=== PATIENT | male | born 1950 | race Caucasian/White ===

== ENCOUNTER 2016-07-11 11:35 | Inpatient (IN) | payer MEDICARE, OTHER ==
[~2016-07-11] VITALS: Ht 167.6 cm; Wt 295.0 kg
[~2016-07-11 11:35] MED LIST: ALBU18HF INH; ALBU2.5V3 NEB; AMIO200T2 GTB; ASPI81TA3 PO; BISA-57 PO; CARSR60 PO; FER325 GTB; FURO40TA4 GTB; GABA300C16 GTB; HYDR-3670 PO; NIT4 SL; NYST15PO4 TOP; OLAN5TAB5 GTB; POTA20TA15 GTB; SERT100T GTB; TRAM-40 PO
--- NOTE | 2016-07-11 11:41 | ERA ---
ER Documentation Chief Complaint Date/Time DATE: 07/11/16 TIME: 11:41 Chief Complaint Shortness of breath HPI The patient is a 66-year-old male, presenting to the ER because of low O2 saturation and shortness of breath. He is unable to provide any history, the history is obtained from enterprise resource analyst and medical record. He is normally more alert according to the enterprise resource analyst Past medical history: Chronic respiratory failure, COPD, hypertension, obesity, paroxysmal atrial fibrillation, anxiety, depression, anemia, CAD Past surgical history: Tracheostomy, pacemaker ROS All systems reviewed and are negative except as per history of present illness. Medications Home Meds Active Scripts Nitroglycerin* (Nitrostat*) 0.4 Mg Tab.subl, 1 TAB SL Q5M Y for ANGINA for 30 Days Prov:ANA RODRIGUEZ V. SUPPLY AND DISTRIBUTION MANAGER 04/01/16 Aspirin (Aspirin) 81 Mg Chew, 81 MG PO DAILY for 30 Days, TAB Prov:ANA RODRIGUEZ V. SUPPLY AND DISTRIBUTION MANAGER 04/01/16 Bisacodyl* (Dulcolax*) 5 Mg Tabec, 5 MG PO DAILY Y for CONSTIPATION for 30 Days Prov:ROSLYN NARAYAN 06/21/15 Albuterol Sulfate* (Ventolin HFA*) 1 Puff Inha, 2 PUFF INH Q4H RESP THERAPY Y for SHORTNESS OF BREATH for 30 Days Prov:ROSLYN NARAYAN 06/21/15 Reported Medications Enoxaparin Sodium* (Lovenox*) 40 Mg/0.4 Ml Syringe, 40 MG SC DAILY, SYR 07/11/16 Sucralfate* (Carafate*) 1 Gm Tab, 1 GM PO Q6, TAB 07/11/16 Nystatin (Nystatin Powder) 1 Each Powder.ea., 1 APPLIC TOPICAL DAILY, #1 BOTTLE 07/11/16 Pantoprazole* (Pantoprazole*) 40 Mg Tablet.dr, 40 MG GTB DAILY, TAB 07/11/16 Simethicone* (Anti-Gas/80*) 80 Mg Tab.chew, 80 MG PO Q6H Y for DISTENSION/GAS/ BLOATING, TAB.CHEW 07/11/16 Lactulose* (Lactulose*) 20 Gm/30 Ml Solution, 20 GM PO BID Y for CONSTIPATION, ML 07/11/16 Gabapentin* (Gabapentin*) 300 Mg Capsule, 300 MG GTB TID, #90 CAP 07/11/16 Dextromethorphan Hb-Promethazine Hcl* (Promethazine DM* Syrup) 473 Ml Syrup, 5 ML GTB Q6 Y for COUGH, ML 07/11/16 Naproxen* (Naprosyn*) 500 Mg Tablet, 500 MG GTB BID, TAB 07/11/16 Hydralazine Hcl* (Hydralazine Hcl*) 10 Mg Tablet, 10 MG PO Q4 Y for ELEVATED BLOOD PRESSURE, #60 TAB 03/31/16 Tramadol Hcl* (Ultram*) 50 Mg Tablet, 50 MG PO Q4H WHILE AWAKE Y for PAIN, TAB 03/31/16 Potassium Chloride* (K-Dur*) 20 Meq Tab.prt.sr, 40 MEQ GTB DAILY, TAB.SA 03/31/16 Furosemide* (Furosemide*) 40 Mg Tablet, 40 MG GTB DAILY, TAB 03/31/16 Sertraline Hcl* (Zoloft*) 100 Mg Tablet, 100 MG GTB DAILY, #30 TAB 07/01/15 Olanzapine* (Zyprexa*) 5 Mg Tablet, 5 MG GTB DAILY, #30 TAB 07/01/15 Diltiazem Hcl* (Cardizem SR*) 60 Mg Capsr, 60 MG PO Q12, #60 CAP 07/01/15 Amiodarone Hcl* (Amiodarone Hcl*) 200 Mg Tablet, 200 MG GTB BID, #60 TAB 07/01/15 Albuterol Sulfate* (Albuterol Sulfate* Neb) 0.083%-3 Ml Neb, 2.5 MG NEB BID, # 30 VIAL 06/11/15 Discontinued Reported Medications Ferrous Sulfate* (Ferrous Sulfate*) 325 Mg Tabec, 325 MG GTB TID, TAB 03/31/16 Gabapentin* (Gabapentin*) 300 Mg Capsule, 300 MG GTB TID, #90 CAP 03/31/16 Discontinued Scripts Nystatin* (Nystop*) 15 Gm Powder, 2 APPLIC TOP BID for 30 Days Prov:ANA RODRIGUEZ V. SUPPLY AND DISTRIBUTION MANAGER 04/01/16 Allergies Allergies: Coded Allergies: hydromorphone (Verified Allergy, Unknown, 03/31/16) morphine (Verified Allergy, Unknown, 03/31/16) PMhx/Soc History of Surgery: Yes (tracheostomy) Anesthesia Reaction: No Hx Neurological Disorder: Yes (neuropathy) Hx Respiratory Disorders: Yes (, COPD, Pneumonia) Hx Cardiac Disorders: Yes (HTN, CHF, paroxysmal atrial fib, pacemaker) Hx Psychiatric Problems: Yes (anxiety, depression) Hx Miscellaneous Medical Probl: Yes (insomis) Hx Alcohol Use: No Hx Substance Use: No Hx Tobacco Use: No Physical Exam Vitals Vital Signs Date Time Temp Pulse Resp B/P Pulse Ox O2 Delivery O2 Flow Rate FiO2 07/11/16 15:30 98.0 60 23 143/62 100 Mechanical Ventilator 07/11/16 15:00 60 131/68 99 Mechanical Ventilator 07/11/16 14:59 60 26 100 80 07/11/16 13:17 74 26 100 100 07/11/16 13:00 73 150/67 99 Mechanical Ventilator 07/11/16 11:48 83 23 98 100 07/11/16 11:42 97.8 82 22 166/65 92 Physical Exam Const: Moderate acute distress. Morbidly obese Head: Atraumatic. Eyes: Normal Conjunctiva. ENT: Normal External Ears, Nose and Mouth. Neck: Full range of motion. No meningismus. Resp: Clear to auscultation anterior and lateral Cardio: Regular rate and rhythm, no murmurs. Abd: Soft, non distended, normal bowel sounds, non tender. Skin: No petechiae or rashes. Back: No midline or flank tenderness. Ext: No cyanosis, or edema. Neur: Unable to perform due to his condition Psych: Unable to perform due to his condition. Result Diagram: 07/11/16 1145 07/11/16 1145 Results 24 hrs Laboratory Tests Test 07/11/16 11:42 07/11/16 11:45 07/11/16 12:00 07/11/16 12:06 Blood Gas Specimen Source Blood arterial Arterial Blood Date Drawn 07/11/2016 12:50:06 PM Arterial Blood pH (Temp corrected) 7.196 Arterial Blood pCO2 (Temp correct) 82.4mmhg Arterial Blood pO2 (Temp corrected) 103.7mmHG Arterial Blood HCO3 31.2mmol/L Arterial Blood Base Excess 1.8mmol/L Arterial Blood Oxygen Saturation 95.9mmHG Rk Test ACCEPTAB Arterial Blood Gas Puncture Site Left Radial Arterial Blood Carboxyhemoglobin 0.7% Arterial Blood Methemoglobin 0.1% Blood Gas A-a O2 Differential 526.9mmHg Oxyhemoglobin Percent 95.1% Total Hemoglobin 9.4g/dl Blood Gas Temperature 37.0C Blood Gas Respiration Rate 20.0 Blood Gas Actual Respiration Rate 20 Blood Gas Modality VENT - AC FiO2 100.0% Blood Gas Tidal Volume 600.0mL Blood Gas Low PEEP Setting 0cmH2O Blood Gas Critical Value Read Back DR THOMPSON Blood Gas Notified Whom JLD Blood Gas Notified Time 07/11/2016 1:00:51 PM White Blood Count 13.410^3/ul Red Blood Count 3.2610^6/ul Hemoglobin 8.7g/dl Hematocrit 31.0% Mean Corpuscular Volume 95.1fl Mean Corpuscular Hemoglobin 26.7pg Mean Corpuscular Hemoglobin Concent 28.1g/dl Red Cell Distribution Width 18.6% Platelet Count 79266^3/UL Mean Platelet Volume 12.5fl Neutrophils % 79.1% Lymphocytes % 10.3% Monocytes % 4.0% Eosinophils % 4.4% Basophils % 0.3% Nucleated Red Blood Cells % 0.4/100WBC Neutrophils # 10.610^3/ul Lymphocytes # 1.410^3/ul Monocytes # 0.510^3/ul Eosinophils # 0.610^3/ul Basophils # 0.010^3/ul Nucleated Red Blood Cells # 0.110^3/ul Prothrombin Time 13.7Sec Prothrombin Time Ratio 1.1 INR International Normalized Ratio 1.05 Activated Partial Thromboplast Time 35.8Sec Sodium Level 141mmol/L Potassium Level 4.8mmol/L Chloride Level 101mmol/L Carbon Dioxide Level 31mmol/L Anion Gap 14 Blood Urea Nitrogen 22mg/dl Creatinine 1.10mg/dl Glucose Level 199mg/dl Calcium Level 8.3mg/dl Magnesium Level 2.1mg/dl Total Bilirubin 0.3mg/dl Direct Bilirubin 0.00mg/dl Indirect Bilirubin 0.3mg/dl Aspartate Amino Transf (AST/SGOT) 40IU/L Alanine Aminotransferase (ALT/SGPT) 19IU/L Alkaline Phosphatase 107IU/L Troponin I < 0.012ng/ml B-Type Natriuretic Peptide 236PG/ML Total Protein 9.0g/dl Albumin 3.6g/dl Globulin 5.40g/dl Albumin/Globulin Ratio 0.66 Lipase 29U/L Lactic Acid Level 0.9mmol/L Urine Color LT. YELLOW Urine Clarity CLEAR Urine pH 5.0 Urine Specific [place] 1.015 Urine Ketones NEGATIVE Urine Nitrite POSITIVE Urine Bilirubin NEGATIVE Urine Urobilinogen 0.2 E.U./dL Urine Leukocyte Esterase 1+ Urine Microscopic RBC 0-2/HPF Urine Microscopic WBC 5-10/HPF Urine Bacteria MANY Urine Hemoglobin TRACE Urine Glucose NEGATIVE% Urine Total Protein TRACE Test 07/11/16 12:09 07/11/16 14:15 Bedside Urine pH (LAB) 5.0 Bedside Urine Protein (LAB) 1+ Bedside Urine Glucose (UA) Negative Bedside Urine Ketones (LAB) Negative Bedside Urine Blood Trace-intact Bedside Urine Nitrite (LAB) Positive Bedside Urine Leukocyte Esterase (L 1+ Lactic Acid Level 1.1mmol/L Current Medications Medications (Trade) Dose Ordered Sig/Jose Route PRN Reason Start Time Stop Time Status Last Admin Dose Admin Piperacillin Sod/ Tazobactam Sod (Zosyn 3.375gm/ 100 ml (Pmx)) 100 ml @ 200 mls/hr ONCE ONCE IVPB 07/11/16 13:00 07/11/16 13:29 DC 07/11/16 12:59 Furosemide 40 mg 40 mg ONCE ONCE IV 07/11/16 14:30 07/11/16 14:31 DC 07/11/16 14:14 Piperacillin Sod/ Tazobactam Sod (Zosyn 3.375gm/ 100 ml (Pmx)) 100 ml @ 200 mls/hr Q8 IVPB 07/11/16 22:00 Albuterol (Proventil 0.083% (Neb)) 2.5 mg BID RESP THERAPY NEB 07/11/16 20:00 Amiodarone HCl (Cordarone) 200 mg BID GTB 07/11/16 21:00 Aspirin (Aspirin) 81 mg DAILY PO 07/12/16 09:00 Bisacodyl (Dulcolax) 5 mg DAILY PRN PO CONSTIPATION 07/11/16 15:30 Diltiazem HCl (Cardizem Sr) 60 mg Q12 PO 07/11/16 21:00 Enoxaparin Sodium (Lovenox) 40 mg DAILY SC 07/12/16 09:00 Furosemide (Lasix) 40 mg BID DIURETICS GTB 07/11/16 18:00 Gabapentin (Neurontin) 300 mg TID GTB 07/11/16 21:00 Hydralazine HCl (Apresoline) 10 mg Q4 PRN PO ELEVATED BLOOD PRESSURE 07/11/16 15:30 UNV Lactulose (Enulose) 20 gm BID PRN PO CONSTIPATION 07/11/16 15:30 Nitroglycerin (Nitroglycerin (Sl Tab) 0.4 Mg) 1 tab Q5M PRN SL ANGINA 07/11/16 15:30 07/11/16 15:30 DC Nystatin 1 applic DAILY TOP 07/12/16 09:00 Olanzapine (Zyprexa) 5 mg DAILY GTB 07/12/16 09:00 Pantoprazole (Protonix Tab) 40 mg DAILY PO 07/12/16 09:00 Potassium Chloride (Klor-Con 20) 40 meq DAILY PO 07/12/16 09:00 Sertraline HCl (Zoloft) 100 mg DAILY GTB 07/12/16 09:00 Simethicone (Mylicon) 80 mg Q6H PRN PO DISTENSION/GAS/BLOATING 07/11/16 15:30 Sucralfate (Carafate) 1 gm Q6 PO 07/11/16 18:00 Tramadol HCl (Ultram) 50 mg Q4H WHILE AWAKE PRN PO PAIN 07/11/16 15:30 IV Flush (NS 3 ml) 3 ml PER PROTOCOL IV 07/11/16 15:30 Lorazepam (Ativan) 0.5 mg Q6H PRN IV ANXIETY 07/11/16 15:30 Ondansetron HCl (Zofran Inj) 4 mg Q6H PRN IV NAUSEA AND/OR VOMITING 07/11/16 15:30 Nitroglycerin (Nitroglycerin (Sl Tab) 0.4 Mg) 1 tab Q5M PRN SL CHEST PAIN 07/11/16 15:30 Acetaminophen (Tylenol Tab) 650 mg Q6H PRN PO PAIN LEVEL 1-3 OR FEVER 07/11/16 15:30 Acetaminophen (Tylenol Supp) 650 mg Q6H PRN [place] PAIN LEVEL 1-3 OR FEVER 07/11/16 15:30 Miscellaneous Information (*Order Clarification Bulletin) HYDRALAZINE ORDER NEEDS ... Q8H XX 07/11/16 16:00 Procedures/MDM EKG: Read by emergency physician Rate/Rhythm: Normal Sinus Rhythm 80 beats/min QRS, ST, T-waves: No ST elevation, no T inversion, first-degree AV block, left bundle branch block Impression: Abnormal EKG [place] [id number] Radiology Main Line: [phone] DIAGNOSTIC IMAGING REPORT Patient: CARLOS CAMPUZANO : 1950 Age: 66 Sex: M MR #: [id number] DOS: 07/11/16 1142 Ordering MD: MELANIE THOMPSON MD Location: E/R Room/Bed: PROCEDURE: XR Chest. CLINICAL INDICATION: Sepsis TECHNIQUE: Chest AP portable. COMPARISON: 03/31/2016 FINDINGS: Tracheostomy tube in place. Right-sided dual lead pacemaker. The mediastinal structures are unremarkable. There is calcification of the thoracic aorta (consistent with atherosclerosis). There is moderate cardiac enlargement. There is congestive heart failure with bilateral pulmonary edema. There is a left pleural effusion. There are senescent changes of the axial skeleton. IMPRESSION: Moderate cardiac enlargement. Congestive heart failure with pulmonary edema. Left pleural effusion. RPTAT: HGDB .Casey Robertson MD, MD Date Time Electronically viewed and signed by .Casey Robertson MD, MD on 07/11/2016 12:59 .B/ CC: MELANIE THOMPSON MD MEDICAL MAKING DECISION: The patient is a 66-year-old male, presenting with acute pulmonary edema, acute on chronic respiratory failure, acute cystitis. He was treated with Lasix 40 mg IV, Zosyn IV. The differential diagnoses considered include but are not limited to asthma, COPD, pneumonia, pulmonary embolus, pleural effusion, congestive heart failure. Critical Care: Time: 35 minutes excluding all billable procedures. Treatments/Evaluations: Close monitoring and treatment of unstable vital signs, cardiorespiratory, and neurologic status, while maintaining tight balance of fluid, respiratory, and cardiac interventions. Departure Diagnosis: Primary Impression: Acute and chronic respiratory failure Additional Impressions: Acute pulmonary edema UTI (urinary tract infection) Anemia Condition: Serious Comments I discussed the findings with the patient. I discussed the patient with the on- call hospitalist Dr. Novak who was made aware of the lab, the treatment, the patient condition. The patient is admitted to telemetry MELANIE THOMPSON MD Jul 11, 2016 11:41
[2016-07-11] MEDS ORDERED: NAPR-260 GTB (11:56)
[2016-07-11] MEDS ORDERED: D-ME473S2 GTB (11:57)
[2016-07-11] MEDS ORDERED: GABA300C16 GTB (11:57)
[2016-07-11] MEDS ORDERED: LACT20SO2 PO (11:57)
[2016-07-11] MEDS ORDERED: SIME80TA PO (11:58)
[2016-07-11] MEDS ORDERED: PANT40TA4 GTB (11:59)
[2016-07-11] MEDS ORDERED: NYST1POW22 TOPICAL (12:00)
[2016-07-11] MEDS ORDERED: SUCR1TAB56 PO (12:00)
[2016-07-11] MEDS ORDERED: ENOX40DI14 SC (12:01)
[2016-07-11 12:06] LABS: ADD SCAN DIFF NO
[2016-07-11 12:10] LABS: ABNORMAL IP MESSAGE 1; BASOPHILS % 0.3 % (0.0-2.0); EOSINOPHILS # 0.6 10^3/ul (0.0-0.5); EOSINOPHILS % 4.4 % (0.0-7.0); HEMOGLOBIN 8.7 g/dl (14.0-18.0); LYMPHOCYTES # 1.4 10^3/ul (0.8-2.9); LYMPHOCYTES % 10.3 % (15.0-51.0); MEAN CORPUSCULAR HEMOGLOBIN 26.7 pg (29.0-33.0); MEAN CORPUSCULAR HGB CONC 28.1 g/dl (32.0-37.0); MEAN CORPUSCULAR VOLUME 95.1 fl (82.0-101.0); MEAN PLATELET VOLUME 12.5 fl (7.4-10.4); MONOCYTE # 0.5 10^3/ul (0.3-0.9); NEUTROPHIL # 10.6 10^3/ul (1.6-7.5); NEUTROPHILS % 79.1 % (39.0-77.0); NUCLEATED RED BLOOD CELLS # 0.1 10^3/ul (0.0-0.0); NUCLEATED RED BLOOD CELLS% 0.4 /100WBC (0.0-0.0); PLATELET COUNT 245 10^3/UL (140-415); RED BLOOD COUNT 3.26 10^6/ul (4.70-6.10); RED CELL DISTRIBUTION WIDTH 18.6 % (11.5-14.5); WHITE BLOOD COUNT 13.4 10^3/ul (4.8-10.8)
[2016-07-11 12:10] LABS: URINE BLOOD (Dip) POC Trace-intact (NEGATIVE)
[2016-07-11 12:24] LABS: INR 1.05; PARTIAL THROMBOPLASTIN TIME 35.8 Sec (25.0-35.0); PROTIME 13.7 Sec (12.2-14.2); PT RATIO 1.1
[2016-07-11 12:25] LABS: ALBUMIN 3.6 g/dl (3.3-4.9); CHLORIDE 101 mmol/L (97-110)
[2016-07-11 12:26] LABS: POTASSIUM 4.8 mmol/L (3.5-5.1); SODIUM 141 mmol/L (135-144)
[2016-07-11 12:28] LABS: ALANINE AMINOTRANSFERASE 19 IU/L (13-69); ALBUMIN/GLOBULIN RATIO 0.66; ALKALINE PHOSPHATASE 107 IU/L (42-121); ANION GAP 14 (8-16); ASPARTATE AMINO TRANSFERASE 40 IU/L (15-46); BILIRUBIN,INDIRECT 0.3 mg/dl (0-1.1); BILIRUBIN,TOTAL 0.3 mg/dl (0.2-1.3); BLOOD UREA NITROGEN 22 mg/dl (7-20); CARBON DIOXIDE 31 mmol/L (21-31)
[2016-07-11 12:29] LABS: CALCIUM 8.3 mg/dl (8.4-10.2); GLUCOSE 199 mg/dl (70-220)
[2016-07-11 12:38] LABS: ADD UMIC YES; URINE BILIRUBIN (Dip) NEGATIVE (NEGATIVE); URINE BLOOD (Dip) TRACE (NEGATIVE); URINE COLOR LT. YELLOW (YELLOW); URINE GLUCOSE (Dip) NEGATIVE (NEGATIVE); URINE KETONES (Dip) NEGATIVE (NEGATIVE); URINE LEUKOCYTE ESTERASE (Dip) 1+ (NEGATIVE); URINE NITRITE (Dip) POSITIVE (NEGATIVE); URINE TOTAL PROTEIN (Dip) TRACE (NEGATIVE); URINE UROBILINOGEN (Dip) 0.2 E.U./dL (0.1-1.0)
[2016-07-11 12:40] LABS: TROPONIN-I < 0.012 ng/ml (0.00-0.12)
[2016-07-11 12:51] LABS: BACTERIA,URINE MANY; URINE RBCS 0-2 /HPF (0)
--- NOTE | 2016-07-11 12:59 | RADRPT ---
PROCEDURE: XR Chest. CLINICAL INDICATION: Sepsis TECHNIQUE: Chest AP portable. COMPARISON: 03/31/2016 FINDINGS: Tracheostomy tube in place. Right-sided dual lead pacemaker. The mediastinal structures are unremarkable. There is calcification of the thoracic aorta (consiste nt with atherosclerosis). There is moderate cardiac enlargement. There is congestive heart failure with bilateral pulmonary edema. There is a left pleural effusion. There are senescent changes of the axial skeleton. IMPRESSION: Moderate cardiac enlargement. Congestive heart failure with pulmonary edema. Left pleural effusion. RPTAT: HGDB .Casey Robertson MD, MD Date Time Electronically viewed and signed by .Casey Robertson MD, on 07/11/2016 12:59 .B/
[2016-07-11] MEDS ORDERED: PIPER-TAZO 3.375 GM IV (PMX) 100 ML IVPB ONE (13:00)
[2016-07-11 13:01] LABS: AADO2 Arterial 526.9 mmHg (7.0-24.0); Allen Test ACCEPTAB; Arterial Base Excess 1.8 mmol/L (-3.0-3); Arterial COHb 0.7 % (0.0-3.0); Arterial Fraction of Oxyhgb 95.1 % (93.0-99.0); Arterial HCO3 31.2 mmol/L (22.0-26.0); Arterial MetHb 0.1 % (0.0-1.5); Arterial Total Hemglobin 9.4 g/dl (12.0-18.0); Blood Gas Low PEEP Setting 0 cmH2O; MODE VENT - AC
[2016-07-11] MEDS ORDERED: FUROSEMIDE 40 MG INJ IV ONE (14:30)
[2016-07-11] MEDS ORDERED: ONDANSETRON 4 MG INJ IV PRN (15:30)
[2016-07-11] MEDS ORDERED: NITROGLYCERIN (SL) 0.4 MG TAB SL PRN ×2 (15:30)
[2016-07-11] MEDS ORDERED: ACETAMINOPHEN 325 MG TAB PO PRN (15:30)
[2016-07-11] MEDS ORDERED: LACTULOSE 30ML CUP PO PRN (15:30)
[2016-07-11] MEDS ORDERED: LORAZEPAM 2 MG INJ IV PRN (15:30)
[2016-07-11] MEDS ORDERED: NACL 0.9% 3 ML SYG IV SCH (15:30)
[2016-07-11] MEDS ORDERED: BISACODYL (EC) 5 MG TAB PO PRN (15:30)
[2016-07-11] MEDS ORDERED: ACETAMINOPHEN 650 MG SUPP PR PRN (15:30)
[2016-07-11] MEDS ORDERED: [UNRECOGNIZED DRUG - REMARK] XX SCH (16:00)
[2016-07-11 17:23] LABS: CREATINE KINASE 54 IU/L (23-200)
[2016-07-11 17:48] LABS: CK-MB 0.95 ng/ml (0.0-2.4); TROPONIN-I < 0.012 ng/ml (0.00-0.12)
[2016-07-11] MEDS: SUCRALFATE 1 GM TAB PO SCH ×2 (18:00→19:17)
[2016-07-11] MEDS: FUROSEMIDE 40 MG TAB GTB SCH ×2 (18:00→19:17)
--- NOTE | 2016-07-11 18:48 | RADRPT ---
PROCEDURE: Ultrasound guidance for placement of needle in left upper extremity vein. CLINICAL INDICATION: Venous access. TECHNIQUE: Limited sonography of the left upper extremity was performed. Ultrasound images were recorded and s tored in the patient's medical record. COMPARISON: None. FINDINGS: The ultrasound images demonstrate a patent left upper extremity vein. The PICC line was inserted by the PICC line nurse. IMPRESSION: 1. Ultrasound guidance for a needle placement in a left upper extremity vein. 2. The left upper extremity vein is patent. RPTAT: QQ .Lonny Smallwood MD, MD Date Time Electronically viewed and signed by .Lonny Smallwood MD, MD on 07/11/2016 18:48 .R/
--- NOTE | 2016-07-11 18:53 | RADRPT ---
PROCEDURE: XR Chest. CLINICAL INDICATION: Check PICC line position. TECHNIQUE: Single frontal view. COMPARISON: Prior study done earlier the same day. FINDINGS: This is a limited study with the right-sided chest not completely included on the image. There is a left arm PICC line with the tip in the mid superior vena cava. There is a right-sided dual lead pe rmanent pacemaker. The tracheostomy tube is in satisfactory position. The heart is enlarged. Bilate ral air space disease consistent with pulmonary edema with right side worse than left is unchanged. The heart is enlarged. IMPRESSION: 1. Satisfactory position of left arm PICC line. 2. Limited study. 3. Asymmetric pulmonary edema or pneumonia. RPTAT: QQ .Lonny Smallwood MD, MD Date Time Electronically viewed and signed by .Lonny Smallwood MD, on 07/11/2016 18:52 .R/
--- NOTE | 2016-07-11 18:53 | RADRPT ---
PROCEDURE: XR Chest. CLINICAL INDICATION: Check PICC line position. TECHNIQUE: Single frontal view. COMPARISON: Prior study done earlier the same day. FINDINGS: This is a limited study with the right-sided chest not completely included on the image. There is a left arm PICC line with the tip in the mid superior vena cava. There is a right-sided dual lead pe rmanent pacemaker. The tracheostomy tube is in satisfactory position. The heart is enlarged. Bilate ral air space disease consistent with pulmonary edema with right side worse than left is unchanged. The heart is enlarged. IMPRESSION: 1. Satisfactory position of left arm PICC line. 2. Limited study. 3. Asymmetric pulmonary edema or pneumonia. RPTAT: QQ .Lonny Smallwood MD, MD Date Time Electronically viewed and signed by .Lonny Smallwood MD, on 07/11/2016 18:53 .R/
--- NOTE | 2016-07-11 20:20 | CONS ---
DATE OF ADMISSION: 07/11/2016 DATE OF CONSULTATION: 07/11/2016 TYPE OF CONSULTATION: Pulmonary. REASON FOR CONSULTATION: Mechanical ventilation. HISTORY OF PRESENT ILLNESS: This is an unfortunate 66-year-old gentleman with multiple medical prob lems including vent-dependent respiratory failure, morbid obesity, history of COPD, atrial fibrillat ion, coronary artery disease, transferred from [facility] for hypoxemia, requiring FIO 2 of 80%. The patient is currently nonverbal, unable to give me further details. PAST MEDICAL HISTORY: As above. MEDICATIONS: Per chart. ALLERGIES: 1. MORPHINE. 2. HYDROMORPHONE. SYSTEMS REVIEW: A 12-point review of systems currently unable to perform. PHYSICAL EXAMINATION: GENERAL: Morbidly appearing gentleman on mechanical ventilation via tracheostomy. VITAL SIGNS: Temperature 98, pulse 60, blood pressure 143/62, O2 saturation 96% on FIO2 of 80%. NECK: Supple. No JVD, lymphadenopathy. Trach site clean, intact. CARDIAC: S1, S2. Distant heart sounds. CHEST: Diminished air entry bilaterally. ABDOMEN: Obese morbidly. Soft, nontender. No guarding or rebound. EXTREMITIES: No cyanosis, clubbing. 1+ edema. NEUROLOGIC: Unable to assess. LABORATORY DATA: ABG initially: pH 7.19, pCO2 of 82, PaO2 of 103, bicarbonate was 31 on 100% FIO2. White count 13.4, hemoglobin 8.7, platelets 245. BUN 22, creatinine 1.1. BNP 236. INR 1.05. Ur inalysis was suggestive of UTI. IMPRESSION AND PLAN: 1. Ventilator-dependent respiratory failure. 2. Likely urinary tract infection. 3. Morbid obesity. 4. Acute on chronic hypercapnic respiratory failure and hypoxic respiratory failure. 5. Radiographic evidence of left pleural effusion. The patient will require: 1. Continued mechanical ventilation. 2. Increased tidal volume and respiratory rate for hypercapnia. 3. Continued antibiotics for urinary tract infection. 4. Continued feeding as tolerated. 5. DVT and GI prophylaxis. Dictated By: DOROTHY PABLO/GABINO Conf#: [id number] DID#: [id number]
[2016-07-11 20:23] LABS: AADO2 Arterial 411.7 mmHg (7.0-24.0); Allen Test ACCEPTAB; Arterial Base Excess 5.5 mmol/L (-3.0-3); Arterial COHb 0.9 % (0.0-3.0); Arterial Fraction of Oxyhgb 95.6 % (93.0-99.0); Arterial HCO3 32.1 mmol/L (22.0-26.0); Arterial MetHb 0 % (0.0-1.5); Arterial Total Hemglobin 8.7 g/dl (12.0-18.0); MODE VENT - AC
[2016-07-11] MEDS: DILTIAZEM (SR) 60 MG CAP PO SCH (21:00)
[2016-07-11] MEDS: GABAPENTIN 300 MG CAP GTB SCH (21:00)
[2016-07-11] MEDS: AMIODARONE 200 MG TAB GTB SCH (21:00)
[2016-07-11] MEDS: ALBUTEROL 0.083% (NEB) 2.5 MG/3 ML AMP NEB SCH (21:29)
[2016-07-11 22:35] LABS: CREATINE KINASE 48 IU/L (23-200)
[2016-07-11 22:49] LABS: CK-MB 1.23 ng/ml (0.0-2.4); TROPONIN-I < 0.012 ng/ml (0.00-0.12)
[2016-07-12] MEDS: PIPER-TAZO 3.375 GM IV (PMX) 100 ML IVPB SCH ×4 (00:14→21:53)
[2016-07-12] MEDS: traMADol 50 MG TAB PO PRN (00:20)
--- NOTE | 2016-07-12 02:04 | RADRPT ---
PROCEDURE: Chest. CLINICAL INDICATION: Respiratory failure. TECHNIQUE: Single frontal view of the chest was obtained. COMPARISON: 07/11/2016. FINDINGS: The patient is status post tracheostomy. There is a left-sided PICC line extending to the SVC. The cardiac silhouette is enlarged. The aortic arch is calcified. There are hazy opacities bilaterall y. There is no pneumothorax. IMPRESSION: Bilateral hazy opacities could represent pulmonary edema and/or multifocal pneumonia, unchanged. Cardiomegaly and aortic atherosclerosis. Left-sided PICC line in place. .Miko Kwong MD, Date Time Electronically viewed and signed by .Miko Kwong MD, MD on 07/12/2016 02:04 .T/
--- NOTE | 2016-07-12 02:47 | HP ---
DATE OF ADMISSION: 07/11/2016 DENTIST/OWNER: 1. Order Administrator. 2. Stone Sandblaster. CHIEF COMPLAINT: Shortness of breath. HISTORY OF PRESENT ILLNESS: This is a 66-year-old gentleman with past medical history of respirator y distress status post tracheostomy, COPD, arrhythmia, coronary artery disease, congestive heart benja lure, neuropathy, mood disorder, GERD, depression, GI bleed, morbid obesity with BMI of 108 who resi brad at [facility] and is dependent on others for his daily activities secondary to his body habitus and is bed bound, presented to ER secondary to having low oxygen saturation, shortness of breath. He is unable to provide any history secondary to his trach. The great amount of inform ation was obtained from and medical records. According to the note, the patient is normally m ore alert and awake. He is able to respond to questions by moving his head, although he denies havi ng any discomfort except having shortness of breath. PAST MEDICAL AND SURGICAL HISTORY: As above per HPI. MEDICATIONS: 1. Albuterol sulfate. 2. Amiodarone. 3. Aspirin. 4. Dulcolax. 5. Cardizem. 6. Lovenox. 7. Lasix. 8. Gabapentin. 9. Hydralazine. 10. Lactulose. 11. Naproxen. 12. Nitro Stat. 13. Nystatin. 14. Zyprexa. 15. Protonix. 16. K-Dur. 17. Promethazine. 18. Zoloft. 19. Simethicone. 20. Sucralfate. 21. Ultram. ALLERGIES: 1. DILAUDID. 2. MORPHINE. SOCIAL HISTORY: He resides at a [facility]. He is dependent on others for his daily activity. He is not a smoker. REVIEW OF SYSTEMS: As above per HPI, otherwise is unobtainable. PHYSICAL EXAMINATION: VITAL SIGNS: Temperature 98.0, pulse 59, respirations 35, oxygen saturation 100% and FIO2 of 80% on vent, blood pressure 111/55. GENERAL APPEARANCE: Patient is lying in bed. He is easily arousable and awake and then he falls ri ght back to sleep. Body habitus morbidly obese with BMI of 108. EYES AND ENT: Conjunctivae and lids are normal. Pupils are normal. Extraocular normal. Hearing g rossly normal. Oral mucosa is dry. NECK: Supple. There is a trach in place. Surgical site is dry and clean. CARDIOVASCULAR: Normal S1, S2. No murmurs. Regular rhythm and rate. LUNGS: Breath sounds are distant secondary to body habitus. No rales, no rhonchi. Positive for wh eezing bilateral upper lung [place]. GASTROINTESTINAL: Abdomen contour is morbidly obese. Bowel sounds are distant secondary to body chicas bitus and nontender. GENITOURINARY: Deferred. MUSCULOSKELETAL: There is stasis dermatitis bilateral lower extremities, trace edema. NEUROLOGIC: He is awake, alert and follows simple commands only. LABORATORY WORK: WBC 13.4, hemoglobin 8.7, hematocrit 31.0, platelets 245. Sodium 141, potassium 4 .8, chloride 101, bicarbonate 31, BUN 22, creatinine 1.01, glucose 199, calcium 8.3. Lactic acid no rmal. Troponin negative x2. ASSESSMENT AND PLAN: 1. Acute on chronic respiratory failure. 2. Morbid obesity with body mass index of 108. 3. Essential hypertension. 4. History of arrhythmia, on amiodarone, Lovenox and Cardizem. 5. Major depression. Continue Zyprexa and Zoloft. 6. History of gastrointestinal bleed. Continue PPI and sucralfate. 7. Left pleural effusion. The patient has been started on broad spectrum IV antibiotics. 8. Pulmonary edema on Lasix. 9. Deep venous thrombosis prophylaxis, on Lovenox. 10. We will continue to monitor patient closely. Further recommendations, management and treatment as per clinical course. Dictated By: DORYS DALTON/GABINO Conf#: [id number] DID#: [id number]
[2016-07-12] MEDS: FUROSEMIDE 40 MG TAB GTB SCH ×2 (07:27→18:00)
[2016-07-12] MEDS: SUCRALFATE 1 GM TAB PO SCH ×3 (07:27→14:14)
[2016-07-12 08:42] LABS: AADO2 Arterial 418.4 mmHg (7.0-24.0); Allen Test ACCEPTAB; Arterial Base Excess 5.5 mmol/L (-3.0-3); Arterial COHb 0.8 % (0.0-3.0); Arterial Fraction of Oxyhgb 93.7 % (93.0-99.0); Arterial HCO3 32.9 mmol/L (22.0-26.0); Arterial MetHb 0.2 % (0.0-1.5); Arterial Total Hemglobin 9.6 g/dl (12.0-18.0); MODE VENT - AC
[2016-07-12] MEDS: AMIODARONE 200 MG TAB GTB SCH ×2 (09:55→21:52)
[2016-07-12] MEDS: OLANZAPINE 5 MG TAB GTB SCH (09:56)
[2016-07-12] MEDS: GABAPENTIN 300 MG CAP GTB SCH ×3 (09:56→21:53)
[2016-07-12] MEDS: DILTIAZEM (SR) 60 MG CAP PO SCH ×2 (09:57→22:07)
[2016-07-12] MEDS: ASPIRIN 81 MG TAB PO SCH (09:57)
[2016-07-12] MEDS: ENOXAPARIN 40 MG/0.4 ML SYG SC SCH (09:58)
[2016-07-12 10:01] LABS: ADD SCAN DIFF NO
[2016-07-12 10:12] LABS: ABNORMAL IP MESSAGE 1; BASOPHILS % 0.2 % (0.0-2.0); EOSINOPHILS # 0.2 10^3/ul (0.0-0.5); EOSINOPHILS % 3.3 % (0.0-7.0); HEMATOCRIT 26.2 % (42.0-52.0); HEMOGLOBIN 7.5 g/dl (14.0-18.0); LYMPHOCYTES # 0.4 10^3/ul (0.8-2.9); LYMPHOCYTES % 5.7 % (15.0-51.0); MEAN CORPUSCULAR HEMOGLOBIN 26.7 pg (29.0-33.0); MEAN CORPUSCULAR HGB CONC 28.6 g/dl (32.0-37.0); MEAN CORPUSCULAR VOLUME 93.2 fl (82.0-101.0); MEAN PLATELET VOLUME 11.7 fl (7.4-10.4); MONOCYTE # 0.3 10^3/ul (0.3-0.9); MONOCYTES % 4.5 % (0.0-11.0); NEUTROPHIL # 5.7 10^3/ul (1.6-7.5); NEUTROPHILS % 85.8 % (39.0-77.0); PLATELET COUNT 188 10^3/UL (140-415); RED BLOOD COUNT 2.81 10^6/ul (4.70-6.10); RED CELL DISTRIBUTION WIDTH 18.3 % (11.5-14.5); WHITE BLOOD COUNT 6.7 10^3/ul (4.8-10.8)
[2016-07-12 10:18] LABS: POTASSIUM 3.8 mmol/L (3.5-5.1)
[2016-07-12 10:21] LABS: CREATININE 1.15 mg/dl (0.61-1.24)
[2016-07-12 10:22] LABS: CALCIUM 8.1 mg/dl (8.4-10.2)
--- NOTE | 2016-07-12 10:38 | PN ---
Date/Time of Note Date/Time of Note DATE: 07/12/16 TIME: 10:34 Assessment/Plan VTE Prophylaxis VTE Prophylaxis Intervention: other Lines/Catheters IV Catheter Type (from Nrs): PICC Line Central line still needed: Yes Assessment/Plan Chief Complaint/Hosp Course ASSESSMENT AND PLAN: 1. Acute on chronic respiratory failure. Likely secondary to pulmonary edema versus pneumonia [facility] has been consulted, continue breathing treatment, antibiotics, continue vent management 2. Morbid obesity with body mass index of 108. Place the patient on low calorie diet 3. Essential hypertension. Continue medical management 4. History of arrhythmia, on amiodarone, Lovenox and Cardizem. 5. Major depression. Continue Zyprexa and Zoloft. 6. History of gastrointestinal bleed. Continue PPI and sucralfate. 7. Left pleural effusion. Continue broad spectrum IV antibiotics. 8. Pulmonary edema on Lasix. 9. Deep venous thrombosis prophylaxis, on Lovenox. We will continue to monitor patient closely. Further recommendations, management and treatment as per clinical course. Plan to [facility] back to [facility] tomorrow if cleared by [facility] crater Problems: Subjective 24 Hr Interval Summary Free Text/Dictation No acute changes Patient respiratory status has improved Denies of any chest pain Exam/Review of Systems Vital Signs Vitals Vital Signs Date Time Temp Pulse Resp B/P Pulse Ox O2 Delivery O2 Flow Rate FiO2 07/12/16 07:40 60 28 100 80 07/12/16 06:30 110/54 Mechanical Ventilator 07/12/16 03:00 97.9 Intake and Output 07/11/16 07/11/16 07/12/16 15:00 23:00 07:00 Intake Total 100 ml Output Total 3200 ml Balance 100 ml -3200 ml Exam General: The patient is morbidly obese, Not in acute distress. HEENT: Atraumatic, normocephalic. The pupils are equal and round . Neck: Supple, trach in place Chest: Normal Lungs: Bilateral upper lung wheezing Heart: Normal S1-S2, Regular rhythm and rate. Abdomen: Abdominal contour is morbidly obese, soft , nontender, nondistended , bowel sounds are distant although present. Extremities: Trace edema, status dermatitis bilateral lower extremity Neurologic: Normal mental status,The patient is awake, alert and oriented . Results Result Diagram: 07/12/16 0953 07/12/16 0953 Results 24 hrs Laboratory Tests Test 07/11/16 11:42 07/11/16 11:45 07/11/16 12:00 07/11/16 12:06 Blood Gas Specimen Source Blood arterial Arterial Blood Date Drawn 07/11/2016 12:50:06 PM Arterial Blood pH (Temp corrected) 7.196 *L Arterial Blood pCO2 (Temp correct) 82.4 *H Arterial Blood pO2 (Temp corrected) 103.7 H Arterial Blood HCO3 31.2 H Arterial Blood Base Excess 1.8 Arterial Blood Oxygen Saturation 95.9 Rk Test ACCEPTAB Arterial Blood Gas Puncture Site Left Radial Arterial Blood Carboxyhemoglobin 0.7 Arterial Blood Methemoglobin 0.1 Blood Gas A-a O2 Differential 526.9 H Oxyhemoglobin Percent 95.1 Total Hemoglobin 9.4 L Blood Gas Temperature 37.0 Blood Gas Respiration Rate 20.0 Blood Gas Actual Respiration Rate 20 Blood Gas Modality VENT - AC FiO2 100.0 Blood Gas Tidal Volume 600.0 Blood Gas Low PEEP Setting 0 Blood Gas Critical Value Read Back DR THOMPSON Blood Gas Notified Whom JLD Blood Gas Notified Time 07/11/2016 1:00:51 PM White Blood Count 13.4 #H Red Blood Count 3.26 L Hemoglobin 8.7 L Hematocrit 31.0 L Mean Corpuscular Volume 95.1 Mean Corpuscular Hemoglobin 26.7 L Mean Corpuscular Hemoglobin Concent 28.1 L Red Cell Distribution Width 18.6 H Platelet Count 245 Mean Platelet Volume 12.5 #H Neutrophils % 79.1 H Lymphocytes % 10.3 L Monocytes % 4.0 Eosinophils % 4.4 Basophils % 0.3 Nucleated Red Blood Cells % 0.4 H Neutrophils # 10.6 H Lymphocytes # 1.4 Monocytes # 0.5 Eosinophils # 0.6 H Basophils # 0.0 Nucleated Red Blood Cells # 0.1 H Prothrombin Time 13.7 Prothrombin Time Ratio 1.1 INR International Normalized Ratio 1.05 Activated Partial Thromboplast Time 35.8 H Sodium Level 141 Potassium Level 4.8 Chloride Level 101 Carbon Dioxide Level 31 Anion Gap 14 Blood Urea Nitrogen 22 H Creatinine 1.10 Glucose Level 199 Calcium Level 8.3 L Magnesium Level 2.1 Total Bilirubin 0.3 Direct Bilirubin 0.00 Indirect Bilirubin 0.3 Aspartate Amino Transf (AST/SGOT) 40 Alanine Aminotransferase (ALT/SGPT) 19 Alkaline Phosphatase 107 Troponin I < 0.012 B-Type Natriuretic Peptide 236 H Total Protein 9.0 H Albumin 3.6 Globulin 5.40 H Albumin/Globulin Ratio 0.66 Lipase 29 Lactic Acid Level 0.9 Urine Color LT. YELLOW Urine Clarity CLEAR Urine pH 5.0 Urine Specific [place] 1.015 Urine Ketones NEGATIVE Urine Nitrite POSITIVE H Urine Bilirubin NEGATIVE Urine Urobilinogen 0.2 E.U./dL Urine Leukocyte Esterase 1+ H Urine Microscopic RBC 0-2 Urine Microscopic WBC 5-10 Urine Bacteria MANY Urine Hemoglobin TRACE Urine Glucose NEGATIVE Urine Total Protein TRACE Test 07/11/16 12:09 07/11/16 14:15 07/11/16 16:38 07/11/16 18:00 Bedside Urine pH (LAB) 5.0 Bedside Urine Protein (LAB) 1+ H Bedside Urine Glucose (UA) Negative Bedside Urine Ketones (LAB) Negative Bedside Urine Blood Trace-intact H Bedside Urine Nitrite (LAB) Positive H Bedside Urine Leukocyte Esterase (L 1+ H Lactic Acid Level 1.1 2.0 Creatine Kinase 54 Creatine Kinase Index 1.8 Creatinine Kinase MB (Mass) 0.95 Troponin I < 0.012 Blood Gas Specimen Source Blood arterial Arterial Blood Date Drawn 07/11/2016 8:10:13 PM Arterial Blood pH (Temp corrected) 7.347 L Arterial Blood pCO2 (Temp correct) 59.9 H Arterial Blood pO2 (Temp corrected) 95.8 Arterial Blood HCO3 32.1 H Arterial Blood Base Excess 5.5 H Arterial Blood Oxygen Saturation 96.5 Rk Test ACCEPTAB Arterial Blood Gas Puncture Site Left Radial Arterial Blood Carboxyhemoglobin 0.9 Arterial Blood Methemoglobin 0 Blood Gas A-a O2 Differential 411.7 H Oxyhemoglobin Percent 95.6 Total Hemoglobin 8.7 L Blood Gas Temperature 37.0 Blood Gas Respiration Rate 26.0 Blood Gas Actual Respiration Rate 32 Blood Gas Modality VENT - AC FiO2 80.0 Blood Gas Tidal Volume 600.0 Blood Gas Low PEEP Setting 5.0 Blood Gas Notified Whom UP Blood Gas Notified Time 07/11/2016 8:22:49 PM Test 07/11/16 21:19 07/12/16 07:00 07/12/16 09:53 Creatine Kinase 48 Creatine Kinase Index 2.6 Creatinine Kinase MB (Mass) 1.23 Troponin I < 0.012 Blood Gas Specimen Source Blood arterial Arterial Blood Date Drawn 07/12/2016 8:33:44 AM Arterial Blood pH (Temp corrected) 7.319 L Arterial Blood pCO2 (Temp correct) 65.4 H Arterial Blood pO2 (Temp corrected) 83.3 Arterial Blood HCO3 32.9 H Arterial Blood Base Excess 5.5 H Arterial Blood Oxygen Saturation 94.6 L Rk Test ACCEPTAB Arterial Blood Gas Puncture Site Left Radial Arterial Blood Carboxyhemoglobin 0.8 Arterial Blood Methemoglobin 0.2 Blood Gas A-a O2 Differential 418.4 H Oxyhemoglobin Percent 93.7 Total Hemoglobin 9.6 L Blood Gas Temperature 37.0 Blood Gas Respiration Rate 24.0 Blood Gas Actual Respiration Rate 35 Blood Gas Modality VENT - AC FiO2 80.0 Blood Gas Tidal Volume 600.0 Blood Gas Low PEEP Setting 5.0 Blood Gas Notified Whom JLD Blood Gas Notified Time 07/12/2016 8:42:18 AM White Blood Count 6.7 # Red Blood Count 2.81 L Hemoglobin 7.5 L Hematocrit 26.2 L Mean Corpuscular Volume 93.2 Mean Corpuscular Hemoglobin 26.7 L Mean Corpuscular Hemoglobin Concent 28.6 L Red Cell Distribution Width 18.3 H Platelet Count 188 # Mean Platelet Volume 11.7 H Neutrophils % 85.8 H Lymphocytes % 5.7 L Monocytes % 4.5 Eosinophils % 3.3 Basophils % 0.2 Nucleated Red Blood Cells % 0.0 Neutrophils # 5.7 Lymphocytes # 0.4 L Monocytes # 0.3 Eosinophils # 0.2 Basophils # 0.0 Nucleated Red Blood Cells # 0.0 Sodium Level 140 Potassium Level 3.8 Chloride Level 99 Carbon Dioxide Level 34 H Anion Gap 11 Blood Urea Nitrogen 19 Creatinine 1.15 Glucose Level 114 # Calcium Level 8.1 L Magnesium Level 2.0 Medications Medications Current Medications Piperacillin Sod/ Tazobactam Sod (Zosyn 3.375gm/ 100 ml (Pmx)) 100 ml @ 200 mls /hr Q8 IVPB Last administered on 07/12/16 07:26; Admin Dose 200 MLS/HR; Start 07/11/16 at 22:00 Amiodarone HCl (Cordarone) 200 mg BID GTB Last administered on 07/12/16 09:55 ; Admin Dose 200 MG; Start 07/11/16 at 21:00 Aspirin (Aspirin) 81 mg DAILY PO Last administered on 07/12/16 09:57; Admin Dose 81 MG; Start 07/12/16 at 09:00 Bisacodyl (Dulcolax) 5 mg DAILY PRN PO CONSTIPATION; Start 07/11/16 at 15:30 Diltiazem HCl (Cardizem Sr) 60 mg Q12 PO Last administered on 07/12/16 09:57; Admin Dose 60 MG; Start 07/11/16 at 21:00 Enoxaparin Sodium (Lovenox) 40 mg DAILY SC Last administered on 07/12/16 09:58 ; Admin Dose 40 MG; Start 07/12/16 at 09:00 Gabapentin (Neurontin) 300 mg TID GTB Last administered on 07/12/16 09:56; Admin Dose 300 MG; Start 07/11/16 at 21:00 Hydralazine HCl (Apresoline) 10 mg Q4 PRN PO ELEVATED BLOOD PRESSURE>150; Start 07/11/16 at 15:30; Status Future hold Lactulose (Enulose) 20 gm BID PRN PO CONSTIPATION; Start 07/11/16 at 15:30 Nystatin 1 applic DAILY TOP ; Start 07/12/16 at 09:00 Olanzapine (Zyprexa) 5 mg DAILY GTB Last administered on 07/12/16 09:56; Admin Dose 5 MG; Start 07/12/16 at 09:00 Pantoprazole (Protonix Tab) 40 mg DAILY PO ; Start 07/12/16 at 09:00 Potassium Chloride (Klor-Con 20) 40 meq DAILY PO ; Start 07/12/16 at 09:00 Sertraline HCl (Zoloft) 100 mg DAILY GTB ; Start 07/12/16 at 09:00 Simethicone (Mylicon) 80 mg Q6H PRN PO DISTENSION/GAS/BLOATING; Start 07/11/16 at 15:30 Sucralfate (Carafate) 1 gm Q6 PO Last administered on 07/12/16 07:27; Admin Dose 1 GM; Start 07/11/16 at 18:00 Lorazepam (Ativan) 0.5 mg Q6H PRN IV ANXIETY; Start 07/11/16 at 15:30 Ondansetron HCl (Zofran Inj) 4 mg Q6H PRN IV NAUSEA AND/OR VOMITING; Start at 15:30 Nitroglycerin (Nitroglycerin (Sl Tab) 0.4 Mg) 1 tab Q5M PRN SL CHEST PAIN; Start 07/11/16 at 15:30 Acetaminophen (Tylenol Tab) 650 mg Q6H PRN PO PAIN LEVEL 1-3 OR FEVER; Start at 15:30 Acetaminophen (Tylenol Supp) 650 mg Q6H PRN [place] PAIN LEVEL 1-3 OR FEVER; Start 07/11/16 at 15:30 IV Flush (NS 10 ml) 10 ml PRN PRN IV IV PROTOCOL; Start 07/11/16 at 19:30 DORYS TINOCO MD Jul 12, 2016 10:38
[2016-07-12] MEDS: ALBUTEROL 0.083% (NEB) 2.5 MG/3 ML AMP NEB SCH (10:55)
[2016-07-12] MEDS ORDERED: FUROSEMIDE 40 MG INJ IV ONE (11:00)
[2016-07-12] MEDS: SERTRALINE 100 MG TAB GTB SCH (11:12)
[2016-07-12] MEDS: NYSTATIN 15 GM POWDER BTL TOP SCH (11:13)
[2016-07-12] MEDS: POTASSIUM CHLORIDE (SR) 20 MEQ TAB PO SCH (11:13)
[2016-07-12] MEDS: PANTOPRAZOLE (EC) 40 MG TAB PO SCH (11:13)
[2016-07-12] MEDS ORDERED: SOD CHLORIDE 0.9% 100 ML ONE (12:00)
[2016-07-12 19:22] VITALS: TEMP 98.9
[2016-07-12 20:00] VITALS: PULSE 66; Ht 167.6 cm; Wt 295.0 kg
--- NOTE | 2016-07-12 20:06 | CONS ---
Date/Time of Note Date/Time of Note DATE: 07/12/16 TIME: 19:59 Assessment/Plan Assessment/Plan Chief Complaint/Hosp Course Assessment: Acute on chronic hypoxic and hypercarbic respiratory failure, chronically ventilator dependent - likely combination of pneumonia and heart failure Suspected pneumonia - on antibiotics Acute on chronic diastolic heart failure - improving with diuresis Paroxysmal atrial fibrillation - currently sinus rhythm Chronic left bundle branch block Hypertension Morbid obesity Obstructive sleep apnea Recommendations: -echocardiogram 03/31/2016 showed LVEF 55%, moderate LVH, mild diastolic dysfunction - will not repeat at this time -continue Lasix 40mg GT BID -continue aspirin 81mg daily -continue amiodarone 200mg BID and diltiazem 60mg BID Problems: Consultation Date/Type/Reason Admit Date/Time Jul 12, 2016 at 14:14 Type of Consultation: Cardiology Reason for Consultation congestive heart failure Hx of Present Illness This is a 66-year-old male morbidly obese male with chronic ventilator- dependent respiratory failure who presented with shortness of breath, hypoxia, and increasing oxygen requirements. Chest x-ray findings were suggestive of pneumonia and decompensated heart failure. 14 point review of systems negative other than per HPI. Past Medical History Chronic diastolic heart failure Paroxysmal atrial fibrillation Chronic left bundle branch block Hypertension Morbid obesity Chronic hypercarbic respiratory failure, status post tracheostomy and chronic ventilator-dependent Obstructive sleep apnea Gout Family History Significant Family History: no pertinent family hx Social History Alcohol Use: none Smoking Status: Never smoker Drug Use: none Exam/Review of Systems Vital Signs Vitals Vital Signs Date Time Temp Pulse Resp B/P Pulse Ox O2 Delivery O2 Flow Rate FiO2 07/12/16 19:22 98.9 65 22 126/51 100 Mechanical Ventilator 07/12/16 19:06 75 Intake and Output 07/11/16 07/11/16 07/12/16 15:00 23:00 07:00 Intake Total 100 ml Output Total 3200 ml Balance 100 ml -3200 ml Exam Constitutional: alert, obese (morbidly) Psych: no complaints Head: atraumatic, normocephalic Eyes: nl conjunctiva, nl lids ENMT: nl external ears & nose, nl nasal mucosa & septum Neck: other (tracheostomy), supple Respiratory: diminished breath sounds Cardiovascular: regular rate and rhythm Gastrointestinal: non-tender, soft Extremities: edema, No clubbing, No cyanosis Results Result Diagram: 07/12/16 0953 07/12/16 0953 Results 24 hrs Laboratory Tests Test 07/11/16 21:19 07/12/16 07:00 07/12/16 09:53 Creatine Kinase 48 Creatine Kinase Index 2.6 Creatinine Kinase MB (Mass) 1.23 Troponin I < 0.012 Blood Gas Specimen Source Blood arterial Arterial Blood Date Drawn 07/12/2016 8:33:44 AM Arterial Blood pH (Temp corrected) 7.319 L Arterial Blood pCO2 (Temp correct) 65.4 H Arterial Blood pO2 (Temp corrected) 83.3 Arterial Blood HCO3 32.9 H Arterial Blood Base Excess 5.5 H Arterial Blood Oxygen Saturation 94.6 L Rk Test ACCEPTAB Arterial Blood Gas Puncture Site Left Radial Arterial Blood Carboxyhemoglobin 0.8 Arterial Blood Methemoglobin 0.2 Blood Gas A-a O2 Differential 418.4 H Oxyhemoglobin Percent 93.7 Total Hemoglobin 9.6 L Blood Gas Temperature 37.0 Blood Gas Respiration Rate 24.0 Blood Gas Actual Respiration Rate 35 Blood Gas Modality VENT - AC FiO2 80.0 Blood Gas Tidal Volume 600.0 Blood Gas Low PEEP Setting 5.0 Blood Gas Notified Whom JLD Blood Gas Notified Time 07/12/2016 8:42:18 AM White Blood Count 6.7 # Red Blood Count 2.81 L Hemoglobin 7.5 L Hematocrit 26.2 L Mean Corpuscular Volume 93.2 Mean Corpuscular Hemoglobin 26.7 L Mean Corpuscular Hemoglobin Concent 28.6 L Red Cell Distribution Width 18.3 H Platelet Count 188 # Mean Platelet Volume 11.7 H Neutrophils % 85.8 H Lymphocytes % 5.7 L Monocytes % 4.5 Eosinophils % 3.3 Basophils % 0.2 Nucleated Red Blood Cells % 0.0 Neutrophils # 5.7 Lymphocytes # 0.4 L Monocytes # 0.3 Eosinophils # 0.2 Basophils # 0.0 Nucleated Red Blood Cells # 0.0 Sodium Level 140 Potassium Level 3.8 Chloride Level 99 Carbon Dioxide Level 34 H Anion Gap 11 Blood Urea Nitrogen 19 Creatinine 1.15 Glucose Level 114 # Calcium Level 8.1 L Magnesium Level 2.0 Medications Medications Current Medications Piperacillin Sod/ Tazobactam Sod (Zosyn 3.375gm/ 100 ml (Pmx)) 100 ml @ 200 mls /hr Q8 IVPB Last administered on 07/12/16t 14:16; Admin Dose 200 MLS/HR; Start 07/11/16 at 22:00 Amiodarone HCl (Cordarone) 200 mg BID GTB Last administered on 07/12/16 09:55 ; Admin Dose 200 MG; Start 07/11/16 at 21:00 Aspirin (Aspirin) 81 mg DAILY PO Last administered on 07/12/16 09:57; Admin Dose 81 MG; Start 07/12/16 at 09:00 Bisacodyl (Dulcolax) 5 mg DAILY PRN PO CONSTIPATION; Start 07/11/16 at 15:30 Diltiazem HCl (Cardizem Sr) 60 mg Q12 PO Last administered on 07/12/16 09:57; Admin Dose 60 MG; Start 07/11/16 at 21:00 Enoxaparin Sodium (Lovenox) 40 mg DAILY SC Last administered on 07/12/16 09:58 ; Admin Dose 40 MG; Start 07/12/16 at 09:00 Gabapentin (Neurontin) 300 mg TID GTB Last administered on 07/12/16 14:14; Admin Dose 300 MG; Start 07/11/16 at 21:00 Hydralazine HCl (Apresoline) 10 mg Q4 PRN PO ELEVATED BLOOD PRESSURE>150; Start 07/11/16 at 15:30; Status Future hold Lactulose (Enulose) 20 gm BID PRN PO CONSTIPATION; Start 07/11/16 at 15:30 Nystatin 1 applic DAILY TOP Last administered on 07/12/16 11:13; Admin Dose 1 APPLIC; Start 07/12/16 at 09:00 Olanzapine (Zyprexa) 5 mg DAILY GTB Last administered on 07/12/16 09:56; Admin Dose 5 MG; Start 07/12/16 at 09:00 Pantoprazole (Protonix Tab) 40 mg DAILY PO Last administered on 07/12/16 11:13 ; Admin Dose 40 MG; Start 07/12/16 at 09:00 Potassium Chloride (Klor-Con 20) 40 meq DAILY PO Last administered on 11:13; Admin Dose 40 MEQ; Start 07/12/16 at 09:00 Sertraline HCl (Zoloft) 100 mg DAILY GTB Last administered on 07/12/16 11:12; Admin Dose 100 MG; Start 07/12/16 at 09:00 Simethicone (Mylicon) 80 mg Q6H PRN PO DISTENSION/GAS/BLOATING; Start 07/11/16 at 15:30 Sucralfate (Carafate) 1 gm Q6 PO Last administered on 07/12/16t 14:14; Admin Dose 1 GM; Start 07/11/16 at 18:00 Lorazepam (Ativan) 0.5 mg Q6H PRN IV ANXIETY; Start 07/11/16 at 15:30 Ondansetron HCl (Zofran Inj) 4 mg Q6H PRN IV NAUSEA AND/OR VOMITING; Start at 15:30 Nitroglycerin (Nitroglycerin (Sl Tab) 0.4 Mg) 1 tab Q5M PRN SL CHEST PAIN; Start 07/11/16 at 15:30 Acetaminophen (Tylenol Tab) 650 mg Q6H PRN PO PAIN LEVEL 1-3 OR FEVER; Start at 15:30 Acetaminophen (Tylenol Supp) 650 mg Q6H PRN [place] PAIN LEVEL 1-3 OR FEVER; Start 07/11/16 at 15:30 IV Flush (NS 10 ml) 10 ml PRN PRN IV IV PROTOCOL; Start 07/11/16 at 19:30 RENAE SKY MD Jul 12, 2016 20:06
[2016-07-12 21:00] VITALS: RESP 34
[2016-07-12 23:45] VITALS: RESP 31
[2016-07-13] VITALS (23 sets, daily range): BP systolic 127–164; BP diastolic 63–89; PULSE 62–73; RESP 19–36
[2016-07-13] MEDS: PIPER-TAZO 3.375 GM IV (PMX) 100 ML IVPB SCH ×3 (05:51→21:59)
[2016-07-13] MEDS: FUROSEMIDE 40 MG TAB GTB SCH (05:52)
[2016-07-13] MEDS: SUCRALFATE 1 GM TAB PO SCH ×4 (05:53→17:42)
[2016-07-13] MEDS: POTASSIUM CHLORIDE (SR) 20 MEQ TAB PO SCH (08:44)
[2016-07-13] MEDS: AMIODARONE 200 MG TAB GTB SCH ×2 (08:45→21:22)
[2016-07-13] MEDS: ASPIRIN 81 MG TAB PO SCH (08:46)
[2016-07-13] MEDS: GABAPENTIN 300 MG CAP GTB SCH ×3 (08:46→21:22)
[2016-07-13] MEDS: PANTOPRAZOLE (EC) 40 MG TAB PO SCH (08:46)
[2016-07-13] MEDS: DILTIAZEM (SR) 60 MG CAP PO SCH ×2 (08:46→21:22)
[2016-07-13] MEDS: NYSTATIN 15 GM POWDER BTL TOP SCH (08:46)
[2016-07-13] MEDS: ENOXAPARIN 40 MG/0.4 ML SYG SC SCH (08:48)
[2016-07-13] MEDS: SERTRALINE 100 MG TAB GTB SCH (08:52)
[2016-07-13] MEDS: OLANZAPINE 5 MG TAB GTB SCH (08:53)
--- NOTE | 2016-07-13 08:58 | RADRPT ---
PROCEDURE: Chest Radiograph. CLINICAL INDICATION: Pulmonary edema TECHNIQUE: Single frontal chest radiograph. COMPARISON: Chest radiograph 07/12/2016 FINDINGS: Study is significant limited by underpenetration. A right chest wall implantable pacer and left upp er extremity PICC remain in place. A tracheostomy tube is present.. The heart is enlarged. Athero sclerotic calcifications are present. There is persistent central vascular congestion. Hazy opaciti es are unchanged and likely indicative of pulmonary edema. Underlying pleural effusions could also be present. The bones are intact. IMPRESSION: 1. Stable radiographic appearance of chest compared to 07/12/2016. RPTAT: KK .Chato Lyons MD, Date Time Electronically viewed and signed by .Chato Lyons MD, MD on 07/13/2016 08:58 .B/
[2016-07-13] MEDS: ALBUTEROL HFA 8 GM INHALER INH SCH ×2 (09:06→19:36)
--- NOTE | 2016-07-13 11:00 | PN ---
Date/Time of Note Date/Time of Note DATE: 07/13/16 TIME: 10:58 Assessment/Plan VTE Prophylaxis VTE Prophylaxis Intervention: LMWH Lines/Catheters IV [facility]ter Type (from [facility] PICC Line Central line still needed: Yes (IV abx for ESBL Ecoli ) Urinary Cath still in place: No Assessment/Plan Assessment/Plan 1. Acute on chronic respiratory failure. Likely secondary to pulmonary edema versus pneumonia vp cardiovascular service line has been consulted, continue breathing treatment, antibiotics, continue vent management 2. UTI with Urine CX grew ESBL Ecoli, on IV zosyn 2. Morbid obesity with body mass index of 108. Place the patient on low calorie diet 3. Essential hypertension. Continue medical management 4. History of arrhythmia, on amiodarone, Lovenox and Cardizem. 5. Major depression. Continue Zyprexa and Zoloft. 6. History of gastrointestinal bleed. Continue PPI and sucralfate. 7. Left pleural effusion. Continue broad spectrum IV antibiotics. 8. Pulmonary edema on Lasix. 9. Deep venous thrombosis prophylaxis, on Lovenox. We will continue to monitor patient closely. Further recommendations, management and treatment as per clinical course. his urine cx grew ESBL Ecoli, on IV abx Zosyn, PICC line, ID consulted on the case pulmonary has been following on patient Problems: Subjective 24 Hr Interval Summary Free Text/Dictation pt remained stable, Urine cx grew ESBL Ecoli Exam/Review of Systems Vital Signs Vitals Vital Signs Date Time Temp Pulse Resp B/P Pulse Ox O2 Delivery O2 Flow Rate FiO2 07/13/16 09:13 72 31 95 75 07/13/16 07:54 97.6 127/89 07/12/16 19:22 Mechanical Ventilator Intake and Output 07/12/16 07/12/16 07/13/16 15:00 23:00 07:00 Intake Total 100 ml 200 ml Balance 100 ml 200 ml Exam General: The patient is morbidly obese, Not in acute distress. HEENT: Atraumatic, normocephalic. The pupils are equal and round . Neck: Supple, trach in place Chest: Normal Lungs: Bilateral upper lung wheezing Heart: Normal S1-S2, Regular rhythm and rate. Abdomen: Abdominal contour is morbidly obese, soft , nontender, nondistended , bowel sounds are distant although present. Extremities: Trace edema, status dermatitis bilateral lower extremity Neurologic: Normal mental status,The patient is awake, alert and oriented . Results Result Diagram: 07/12/1653 07/12/16952 Medications Medications Current Medications Piperacillin Sod/ Tazobactam Sod (Zosyn 3.375gm/ 100 ml (Pmx)) 100 ml @ 200 mls /hr Q8 IVPB Last administered on 07/13/16 05:51; Admin Dose 200 MLS/HR; Start 07/11/16 at 22:00 Amiodarone HCl (Cordarone) 200 mg BID GTB Last administered on 07/13/16 08:45 ; Admin Dose 200 MG; Start 07/11/16 at 21:00 Aspirin (Aspirin) 81 mg DAILY PO Last administered on 07/13/16 08:46; Admin Dose 81 MG; Start 07/12/16 at 09:00 Bisacodyl (Dulcolax) 5 mg DAILY PRN PO CONSTIPATION; Start 07/11/16 at 15:30 Diltiazem HCl (Cardizem Sr) 60 mg Q12 PO Last administered on 07/13/16 08:46; Admin Dose 60 MG; Start 07/11/16 at 21:00 Enoxaparin Sodium (Lovenox) 40 mg DAILY SC Last administered on 07/13/16 08:48 ; Admin Dose 40 MG; Start 07/12/16 at 09:00 Gabapentin (Neurontin) 300 mg TID GTB Last administered on 07/13/16 08:46; Admin Dose 300 MG; Start 07/11/16 at 21:00 Hydralazine HCl (Apresoline) 10 mg Q4 PRN PO ELEVATED BLOOD PRESSURE>150; Start 07/11/16 at 15:30; Status Future hold Lactulose (Enulose) 20 gm BID PRN PO CONSTIPATION; Start 07/11/16 at 15:30 Nystatin 1 applic DAILY TOP Last administered on 07/13/16 08:46; Admin Dose 1 APPLIC; Start 07/12/16 at 09:00 Olanzapine (Zyprexa) 5 mg DAILY GTB Last administered on 07/12/16 09:56; Admin Dose 5 MG; Start 07/12/16 at 09:00 Pantoprazole (Protonix Tab) 40 mg DAILY PO Last administered on 07/13/16 08:46 ; Admin Dose 40 MG; Start 07/12/16 at 09:00 Potassium Chloride (Klor-Con 20) 40 meq DAILY PO Last administered on 08:44; Admin Dose 40 MEQ; Start 07/12/16 at 09:00 Sertraline HCl (Zoloft) 100 mg DAILY GTB Last administered on 07/12/16 11:12; Admin Dose 100 MG; Start 07/12/16 at 09:00 Simethicone (Mylicon) 80 mg Q6H PRN PO DISTENSION/GAS/BLOATING; Start 07/11/16 at 15:30 Sucralfate (Carafate) 1 gm Q6 PO Last administered on 07/13/16 05:53; Admin Dose 1 GM; Start 07/11/16 at 18:00 Lorazepam (Ativan) 0.5 mg Q6H PRN IV ANXIETY; Start 07/11/16 at 15:30 Ondansetron HCl (Zofran Inj) 4 mg Q6H PRN IV NAUSEA AND/OR VOMITING; Start at 15:30 Nitroglycerin (Nitroglycerin (Sl Tab) 0.4 Mg) 1 tab Q5M PRN SL CHEST PAIN; Start 07/11/16 at 15:30 Acetaminophen (Tylenol Tab) 650 mg Q6H PRN PO PAIN LEVEL 1-3 OR FEVER; Start at 15:30 Acetaminophen (Tylenol Supp) 650 mg Q6H PRN [place] PAIN LEVEL 1-3 OR FEVER; Start 07/11/16 at 15:30 IV Flush (NS 10 ml) 10 ml PRN PRN IV IV PROTOCOL; Start 07/11/16 at 19:30 MALENA MUNGUIA MD Jul 13, 2016 11:00
[2016-07-13 11:05] LABS: ADD SCAN DIFF NO
[2016-07-13 11:09] LABS: ABNORMAL IP MESSAGE 1; BASOPHILS % 0.4 % (0.0-2.0); EOSINOPHILS # 0.4 10^3/ul (0.0-0.5); EOSINOPHILS % 7.5 % (0.0-7.0); HEMATOCRIT 24.7 % (42.0-52.0); LYMPHOCYTES # 0.4 10^3/ul (0.8-2.9); LYMPHOCYTES % 8.3 % (15.0-51.0); MEAN CORPUSCULAR HEMOGLOBIN 26.6 pg (29.0-33.0); MEAN CORPUSCULAR HGB CONC 28.3 g/dl (32.0-37.0); MEAN CORPUSCULAR VOLUME 93.9 fl (82.0-101.0); MONOCYTE # 0.3 10^3/ul (0.3-0.9); MONOCYTES % 5.7 % (0.0-11.0); NEUTROPHILS % 77.7 % (39.0-77.0); PLATELET COUNT 173 10^3/UL (140-415); RED BLOOD COUNT 2.63 10^6/ul (4.70-6.10); RED CELL DISTRIBUTION WIDTH 18.4 % (11.5-14.5); WHITE BLOOD COUNT 5.1 10^3/ul (4.8-10.8)
[2016-07-13 11:24] LABS: POTASSIUM 3.8 mmol/L (3.5-5.1)
[2016-07-13 11:26] LABS: CREATININE 1.14 mg/dl (0.61-1.24)
[2016-07-13 11:27] LABS: MAGNESIUM 2.1 mg/dl (1.7-2.5)
--- NOTE | 2016-07-13 12:25 | CONS ---
Date/Time of Note Date/Time of Note DATE: 07/13/16 TIME: 12:19 Assessment/Plan Assessment/Plan Additional Assessment/Plan Chest x-ray was reviewed from today which is showing florid pulmonary edema. Ventilator settings; AC of 24, tidal volume 600, PEEP of 5, 75% FiO2. Assessment recommendations; next 1. Patient admitted for CHF exacerbation. 2. UTI. 3. Morbid obesity. 4. Cardiomyopathy 5. Anemia. Continue current treatment. Change Lasix to intravenous 40 mg every 12 hours from enteral form. Tonsils 1 unit of packed RBC. Wean down FiO2 to keep O2 sat around 92-94. Consultation Date/Type/Reason Admit Date/Time Jul 12, 2016 at 14:14 Date of Consultation: Jul 13, 2016 Type of Consultation: Pulmonary Reason for Consultation Pulmonary consultations obtained for evaluation of chronic respiratory failure and hypoxemia. History presenting; patient is a pleasant 66-year-old white male who was admitted yesterday transferred over from longterm with low pulse oximetry reading. According to the patient he was fine until 2 days ago when he started noticing shortness of breath, the patient inflated his tracheostomy balloon for better volume delivery but according to him he just did not improve and requested to be transferred to the hospital. Upon evaluation here, a chest x- ray was done which is showing florid pulmonary edema. The patient is requiring high FiO2 currently for O2 saturation maintenance. He denies any chest congestion, wheezing, chest pain. Denies any fever chills. The patient is a good historian and was able to give a detailed history by himself. Past medical history; 1. Patient with a history of chronic respiratory failure, ventilator dependent. 2. Morbid obesity, patient currently being 295 kg. 3. Paroxysmal atrial fibrillation. 5. Status post G-tube placement in the past with subsequent removal. Patient able to eat well. 5. Hypertension. 6. History of UTI. 7. History of CHF. Medications; were reviewed. Allergies; are to morphine and hydromorphone. Social history; never smoked. No history of alcohol or drug abuse. Family history; he is single, he never had any children. Occupational history; patient is currently on disability. 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 Review of systems; denies any headache, seizures, sinus symptoms. Any chest pain. Wheezing. Angina. Any abdominal pain, nausea. Vomiting. Able to eat well. Denies any dysphagia. Complains of chronic lower extremity edema. Chronic orthopnea. Has any abdominal pain. General exam; elderly male, morbidly obese, on ventilator via tracheostomy currently in no distress. Awake and alert. Able to talk. Social History Alcohol Use: none Smoking Status: Unknown if ever smoked Drug Use: none Exam/Review of Systems Vital Signs Vitals Vital Signs Date Time Temp Pulse Resp B/P Pulse Ox O2 Delivery O2 Flow Rate FiO2 07/13/16 11:42 98.6 89 20 146/84 98 07/13/16 11:16 75 07/12/16 19:22 Mechanical Ventilator Intake and Output 07/12/16 07/12/16 07/13/16 15:00 23:00 07:00 Intake Total 100 ml 200 ml Balance 100 ml 200 ml Exam HEENT exam; supple neck, no JVD. No lymphadenopathy. Midline trachea. No thyromegaly. Tracheostomy in place with clean insertion site. Patient has a few missing teeth. Pupils are midsize and reactive to light bilaterally. Chest examination of Rich diminished breath sounds throughout. S1-S2 audible , no murmurs. Abdomen exam; grossly protuberant. Multiple well-healed scars are present. No organomegaly. Nontender. Extremity exam is; trace generalized edema. Pulses 1+ bilaterally. There are superficial ulcerations involving lower extremities. TUBE INSPECTOR exam; patient has no gross focal deficit. Results Result Diagram: 07/13/16 1045 07/13/16 1040 Results 24 hrs Laboratory Tests Test 07/13/16 10:40 07/13/16 10:45 Sodium Level 141 Potassium Level 3.8 Chloride Level 100 Carbon Dioxide Level 36 H Anion Gap 9 Blood Urea Nitrogen 18 Creatinine 1.14 Glucose Level 143 Calcium Level 8.0 L Magnesium Level 2.1 White Blood Count 5.1 # Red Blood Count 2.63 L Hemoglobin 7.0 L Hematocrit 24.7 L Mean Corpuscular Volume 93.9 Mean Corpuscular Hemoglobin 26.6 L Mean Corpuscular Hemoglobin Concent 28.3 L Red Cell Distribution Width 18.4 H Platelet Count 173 Mean Platelet Volume 12.0 H Neutrophils % 77.7 H Lymphocytes % 8.3 L Monocytes % 5.7 Eosinophils % 7.5 H Basophils % 0.4 Nucleated Red Blood Cells % 0.0 Neutrophils # 4.0 Lymphocytes # 0.4 L Monocytes # 0.3 Eosinophils # 0.4 Basophils # 0.0 Nucleated Red Blood Cells # 0.0 Medications Medications Current Medications Piperacillin Sod/ Tazobactam Sod (Zosyn 3.375gm/ 100 ml (Pmx)) 100 ml @ 200 mls /hr Q8 IVPB Last administered on 07/13/16 05:51; Admin Dose 200 MLS/HR; Start 07/11/16 at 22:00 Amiodarone HCl (Cordarone) 200 mg BID GTB Last administered on 07/13/16 08:45 ; Admin Dose 200 MG; Start 07/11/16 at 21:00 Aspirin (Aspirin) 81 mg DAILY PO Last administered on 07/13/16 08:46; Admin Dose 81 MG; Start 07/12/16 at 09:00 Bisacodyl (Dulcolax) 5 mg DAILY PRN PO CONSTIPATION; Start 07/11/16 at 15:30 Diltiazem HCl (Cardizem Sr) 60 mg Q12 PO Last administered on 07/13/16 08:46; Admin Dose 60 MG; Start 07/11/16 at 21:00 Enoxaparin Sodium (Lovenox) 40 mg DAILY SC Last administered on 07/13/16 08:48 ; Admin Dose 40 MG; Start 07/12/16 at 09:00 Gabapentin (Neurontin) 300 mg TID GTB Last administered on 07/13/16 08:46; Admin Dose 300 MG; Start 07/11/16 at 21:00 Hydralazine HCl (Apresoline) 10 mg Q4 PRN PO ELEVATED BLOOD PRESSURE>150; Start 07/11/16 at 15:30; Status Future hold Lactulose (Enulose) 20 gm BID PRN PO CONSTIPATION; Start 07/11/16 at 15:30 Nystatin 1 applic DAILY TOP Last administered on 07/13/16 08:46; Admin Dose 1 APPLIC; Start 07/12/16 at 09:00 Olanzapine (Zyprexa) 5 mg DAILY GTB Last administered on 07/12/16 09:56; Admin Dose 5 MG; Start 07/12/16 at 09:00 Pantoprazole (Protonix Tab) 40 mg DAILY PO Last administered on 07/13/16 08:46 ; Admin Dose 40 MG; Start 07/12/16 at 09:00 Potassium Chloride (Klor-Con 20) 40 meq DAILY PO Last administered on 08:44; Admin Dose 40 MEQ; Start 07/12/16 at 09:00 Sertraline HCl (Zoloft) 100 mg DAILY GTB Last administered on 07/12/16 11:12; Admin Dose 100 MG; Start 07/12/16 at 09:00 Simethicone (Mylicon) 80 mg Q6H PRN PO DISTENSION/GAS/BLOATING; Start 07/11/16 at 15:30 Sucralfate (Carafate) 1 gm Q6 PO Last administered on 07/13/16 05:53; Admin Dose 1 GM; Start 07/11/16 at 18:00 Lorazepam (Ativan) 0.5 mg Q6H PRN IV ANXIETY; Start 07/11/16 at 15:30 Ondansetron HCl (Zofran Inj) 4 mg Q6H PRN IV NAUSEA AND/OR VOMITING; Start at 15:30 Nitroglycerin (Nitroglycerin (Sl Tab) 0.4 Mg) 1 tab Q5M PRN SL CHEST PAIN; Start 07/11/16 at 15:30 Acetaminophen (Tylenol Tab) 650 mg Q6H PRN PO PAIN LEVEL 1-3 OR FEVER; Start at 15:30 Acetaminophen (Tylenol Supp) 650 mg Q6H PRN LA PAIN LEVEL 1-3 OR FEVER; Start 07/11/16 at 15:30 IV Flush (NS 10 ml) 10 ml PRN PRN IV IV PROTOCOL; Start 07/11/16 at 19:30 ANAHI GARCIA Jul 13, 2016 12:25
[2016-07-13] MEDS: FUROSEMIDE 40 MG INJ IV SCH ×2 (12:34→17:41)
--- NOTE | 2016-07-13 16:08 | CONS ---
DATE OF ADMISSION: 07/12/2016 DATE OF CONSULTATION: 07/13/2016 TYPE OF CONSULTATION: Infectious Disease. REASON FOR CONSULTATION: Antibiotic management. HISTORY OF PRESENT ILLNESS: Cheko Nielson is a 66-year-old male who comes in with shortness of breath and is being seen for antibiotic management. His past problems include: 1. Ventilator-dependent respiratory failure, status post tracheostomy. 2. Chronic obstructive pulmonary disease. 2. Arrhythmia. 3. Coronary artery disease with congestive heart failure. 4. Peripheral neuropathy. 5. Mood disorder. 6. Gastroesophageal reflux disease. 7. Depression. 8. GI bleed. 9. Morbid obesity with a BMI of 108. The patient resides in a alf facility and is essentially bedbound. He presented to the emergency room with low oxygen saturation and shortness of breath. On admission, his white count wa s 13.4, H and H of 8.7 and 31, platelet count 245,000. BUN and creatinine 22/1.01. Lactic acid was normal. PAST MEDICAL HISTORY: Operations as outlined. FAMILY HISTORY: Noncontributory. SOCIAL HISTORY: He resides in a alf facility. He does not smoke, drink or abuse drugs. ALLERGIES: DILAUDID AND MORPHINE. MEDICATIONS: Per chart. REVIEW OF SYSTEMS: As per HPI. PHYSICAL EXAMINATION: GENERAL: The patient is a morbidly obese male who is awake, arousable but somnolent, in no acute di stress. VITAL SIGNS: Stable. He is afebrile. SKIN: Without generalized rash. HEENT: Within normal limits. NECK: Supple. LYMPH NODES: None palpable. CHEST: Decreased breath sounds at the bases. HEART: Without murmur or gallop. ABDOMEN: Soft, obese, nontender, without organosplenomegaly or masses. EXTREMITIES: Without cyanosis, clubbing, or edema. RECTAL AND GENITAL: Deferred. NEUROLOGIC: No focal neurological abnormalities. MICROBIOLOGY: His urine culture grew out E. coli ESBL sensitive to amikacin, imipenem, nitrofuranto in and Zosyn. The chest x-ray from July 13 is stable. There is a right chest wall implantable p acemaker. He has left upper extremity PICC line, tracheostomy, central vascular congestion. IMPRESSION AND PLAN: We should switch the patient over to either imipenem or ertapenem. A PICC ross e has been inserted. He has his tracheostomy. He was seen also by Dr. Teodoro Urban for his renal function. He was placed on IV antibiotics on Zosyn, which should be adequate. He was seen by Dr. Zeny ojhn for pulmonary consultation and I believe that we will continue him on his Zosyn. I will dictat e my findings to Dr. Novak, the hospitalist, Dr. Hill, Dr. Reyes, Dr. Urban and Dr. Brandon christensen. Dictated By: COLEEN PORTER MD, JD/GABINO Conf#: [id number] DID#: [id number]
[2016-07-13] MEDS: traMADol 50 MG TAB PO PRN (16:12)
--- NOTE | 2016-07-13 17:25 | CONS ---
Date/Time of Note Date/Time of Note DATE: 07/13/16 TIME: 17:23 Assessment/Plan Assessment/Plan Chief Complaint/Hosp Course Assessment: Acute on chronic hypoxic and hypercarbic respiratory failure, chronically ventilator dependent - from heart failure, possible pneumonia Acute on chronic diastolic heart failure - improving with diuresis Paroxysmal atrial fibrillation - currently sinus rhythm Chronic left bundle branch block Hypertension Morbid obesity Obstructive sleep apnea Urinary tract infection, ESBL E. coli - antibiotics per infectious disease Recommendations: -echocardiogram 03/31/2016 showed LVEF 55%, moderate LVH, mild diastolic dysfunction - will not repeat at this time -continue diuresis - now on Lasix 40mg IV BID -continue aspirin 81mg daily -continue amiodarone 200mg BID and diltiazem 60mg BID Problems: Consultation Date/Type/Reason Admit Date/Time Jul 12, 2016 at 14:14 Initial Consult Date 07/13/16 Type of Consultation: Cardiology 24 HR Interval Summary Free Text/Dictation Respiratory status improving. Urine growing ESBL E. coli. Detailed Summary Additional Comments 14 point review of systems without changes. Exam/Review of Systems Vital Signs Vitals Vital Signs Date Time Temp Pulse Resp B/P Pulse Ox O2 Delivery O2 Flow Rate FiO2 07/13/16 17:19 62 32 96 75 07/13/16 15:35 98.6 147/65 07/12/16 19:22 Mechanical Ventilator Intake and Output 07/12/16 07/12/16 07/13/16 15:00 23:00 07:00 Intake Total 100 ml 200 ml Balance 100 ml 200 ml Exam Constitutional: alert, obese (morbidly) Psych: no complaints Head: atraumatic, normocephalic Eyes: nl conjunctiva, nl lids ENMT: nl external ears & nose, nl nasal mucosa & septum Neck: other (tracheostomy), supple Respiratory: diminished breath sounds Cardiovascular: regular rate and rhythm Gastrointestinal: non-tender, soft Extremities: edema, No clubbing, No cyanosis Results Result Diagram: 07/13/16 1045 07/13/16 1040 Results 24 hrs Laboratory Tests Test 07/13/16 10:40 07/13/16 10:45 Sodium Level 141 Potassium Level 3.8 Chloride Level 100 Carbon Dioxide Level 36 H Anion Gap 9 Blood Urea Nitrogen 18 Creatinine 1.14 Glucose Level 143 Calcium Level 8.0 L Magnesium Level 2.1 White Blood Count 5.1 # Red Blood Count 2.63 L Hemoglobin 7.0 L Hematocrit 24.7 L Mean Corpuscular Volume 93.9 Mean Corpuscular Hemoglobin 26.6 L Mean Corpuscular Hemoglobin Concent 28.3 L Red Cell Distribution Width 18.4 H Platelet Count 173 Mean Platelet Volume 12.0 H Neutrophils % 77.7 H Lymphocytes % 8.3 L Monocytes % 5.7 Eosinophils % 7.5 H Basophils % 0.4 Nucleated Red Blood Cells % 0.0 Neutrophils # 4.0 Lymphocytes # 0.4 L Monocytes # 0.3 Eosinophils # 0.4 Basophils # 0.0 Nucleated Red Blood Cells # 0.0 Medications Medications Current Medications Piperacillin Sod/ Tazobactam Sod (Zosyn 3.375gm/ 100 ml (Pmx)) 100 ml @ 200 mls /hr Q8 IVPB Last administered on 07/13/16 14:36; Admin Dose 200 MLS/HR; Start 07/11/16 at 22:00 Amiodarone HCl (Cordarone) 200 mg BID GTB Last administered on 07/13/16 08:45 ; Admin Dose 200 MG; Start 07/11/16 at 21:00 Aspirin (Aspirin) 81 mg DAILY PO Last administered on 07/13/16 08:46; Admin Dose 81 MG; Start 07/12/16 at 09:00 Bisacodyl (Dulcolax) 5 mg DAILY PRN PO CONSTIPATION; Start 07/11/16 at 15:30 Diltiazem HCl (Cardizem Sr) 60 mg Q12 PO Last administered on 07/13/16 08:46; Admin Dose 60 MG; Start 07/11/16 at 21:00 Enoxaparin Sodium (Lovenox) 40 mg DAILY SC Last administered on 07/13/16 08:48 ; Admin Dose 40 MG; Start 07/12/16 at 09:00 Gabapentin (Neurontin) 300 mg TID GTB Last administered on 07/13/16 12:32; Admin Dose 300 MG; Start 07/11/16 at 21:00 Hydralazine HCl (Apresoline) 10 mg Q4 PRN PO ELEVATED BLOOD PRESSURE>150; Start 07/11/16 at 15:30; Status Future hold Lactulose (Enulose) 20 gm BID PRN PO CONSTIPATION; Start 07/11/16 at 15:30 Nystatin 1 applic DAILY TOP Last administered on 07/13/16 08:46; Admin Dose 1 APPLIC; Start 07/12/16 at 09:00 Olanzapine (Zyprexa) 5 mg DAILY GTB Last administered on 07/12/16 09:56; Admin Dose 5 MG; Start 07/12/16 at 09:00 Pantoprazole (Protonix Tab) 40 mg DAILY PO Last administered on 07/13/16 08:46 ; Admin Dose 40 MG; Start 07/12/16 at 09:00 Potassium Chloride (Klor-Con 20) 40 meq DAILY PO Last administered on 08:44; Admin Dose 40 MEQ; Start 07/12/16 at 09:00 Sertraline HCl (Zoloft) 100 mg DAILY GTB Last administered on 07/12/16 11:12; Admin Dose 100 MG; Start 07/12/16 at 09:00 Simethicone (Mylicon) 80 mg Q6H PRN PO DISTENSION/GAS/BLOATING; Start 07/11/16 at 15:30 Sucralfate (Carafate) 1 gm Q6 PO Last administered on 07/13/16 12:25; Admin Dose 1 GM; Start 07/11/16 at 18:00 Lorazepam (Ativan) 0.5 mg Q6H PRN IV ANXIETY; Start 07/11/16 at 15:30 Ondansetron HCl (Zofran Inj) 4 mg Q6H PRN IV NAUSEA AND/OR VOMITING; Start at 15:30 Nitroglycerin (Nitroglycerin (Sl Tab) 0.4 Mg) 1 tab Q5M PRN SL CHEST PAIN; Start 07/11/16 at 15:30 Acetaminophen (Tylenol Tab) 650 mg Q6H PRN PO PAIN LEVEL 1-3 OR FEVER; Start at 15:30 Acetaminophen (Tylenol Supp) 650 mg Q6H PRN [place] PAIN LEVEL 1-3 OR FEVER; Start 07/11/16 at 15:30 IV Flush (NS 10 ml) 10 ml PRN PRN IV IV PROTOCOL; Start 07/11/16 at 19:30 RENAE SKY MD Jul 13, 2016 17:25
[2016-07-14] VITALS (24 sets, daily range): BP systolic 131–168; BP diastolic 61–71; PULSE 60–66; RESP 12–36
[2016-07-14] MEDS: SUCRALFATE 1 GM TAB PO SCH ×4 (00:06→18:20)
[2016-07-14] MEDS: PIPER-TAZO 3.375 GM IV (PMX) 100 ML IVPB SCH ×2 (05:40→13:54)
[2016-07-14] MEDS: FUROSEMIDE 40 MG INJ IV SCH ×2 (05:41→18:20)
[2016-07-14] MEDS: ALBUTEROL HFA 8 GM INHALER INH SCH ×2 (09:24→19:13)
[2016-07-14] MEDS: GABAPENTIN 300 MG CAP GTB SCH ×3 (10:44→21:00)
[2016-07-14] MEDS: DILTIAZEM (SR) 60 MG CAP PO SCH ×2 (10:44→21:00)
[2016-07-14] MEDS: ASPIRIN 81 MG TAB PO SCH (10:44)
[2016-07-14] MEDS: AMIODARONE 200 MG TAB GTB SCH ×2 (10:44→21:00)
[2016-07-14] MEDS: NYSTATIN 15 GM POWDER BTL TOP SCH (10:46)
[2016-07-14] MEDS: ENOXAPARIN 40 MG/0.4 ML SYG SC SCH (10:49)
[2016-07-14] MEDS: OLANZAPINE 5 MG TAB GTB SCH (10:55)
[2016-07-14] MEDS: PANTOPRAZOLE (EC) 40 MG TAB PO SCH (10:55)
[2016-07-14] MEDS: SERTRALINE 100 MG TAB GTB SCH (10:55)
[2016-07-14] MEDS: POTASSIUM CHLORIDE (SR) 20 MEQ TAB PO SCH (10:55)
--- NOTE | 2016-07-14 10:56 | CONS ---
Date/Time of Note Date/Time of Note DATE: 07/14/16 TIME: 10:54 Consult Date/Type/Reason Admit Date/Time Jul 12, 2016 at 14:14 Initial Consult Date 07/13/16 Type of Consultation: pulmonary Subjective Patient remains stable on mechanical ventilation FiO2 being decreased Currently hemodynamically stable Objective Vital Signs Date Time Temp Pulse Resp B/P Pulse Ox O2 Delivery O2 Flow Rate FiO2 07/14/16 09:10 62 32 98 75 07/14/16 07:31 98.6 138/64 07/12/16 19:22 Mechanical Ventilator Intake and Output 07/13/16 07/13/16 07/14/16 14:59 22:59 06:59 Intake Total 1500 ml 450 ml Balance 1500 ml 450 ml Exam PHYSICAL EXAMINATION: GENERAL: Morbidly appearing gentleman on mechanical ventilation via tracheostomy. VITAL SIGNS: As above NECK: Supple. No JVD, lymphadenopathy. Trach site clean, intact. CARDIAC: S1, S2. Distant heart sounds. CHEST: Diminished air entry bilaterally. ABDOMEN: Obese morbidly. Soft, nontender. No guarding or rebound. EXTREMITIES: No cyanosis, clubbing. 1+ edema. NEUROLOGIC: Unable to assess. Results/Medications Result Diagram: 07/13/16 1045 07/13/16 1040 Medications Current Medications Piperacillin Sod/ Tazobactam Sod (Zosyn 3.375gm/ 100 ml (Pmx)) 100 ml @ 200 mls /hr Q8 IVPB Last administered on 07/14/16 05:40; Admin Dose 200 MLS/HR; Start 07/11/16 at 22:00 Amiodarone HCl (Cordarone) 200 mg BID GTB Last administered on 07/14/16 10:44 ; Admin Dose 200 MG; Start 07/11/16 at 21:00 Aspirin (Aspirin) 81 mg DAILY PO Last administered on 07/14/16 10:44; Admin Dose 81 MG; Start 07/12/16 at 09:00 Bisacodyl (Dulcolax) 5 mg DAILY PRN PO CONSTIPATION; Start 07/11/16 at 15:30 Diltiazem HCl (Cardizem Sr) 60 mg Q12 PO Last administered on 07/14/16 10:44; Admin Dose 60 MG; Start 07/11/16 at 21:00 Enoxaparin Sodium (Lovenox) 40 mg DAILY SC Last administered on 07/13/16 08:48 ; Admin Dose 40 MG; Start 07/12/16 at 09:00 Gabapentin (Neurontin) 300 mg TID GTB Last administered on 07/14/16 10:44; Admin Dose 300 MG; Start 07/11/16 at 21:00 Hydralazine HCl (Apresoline) 10 mg Q4 PRN PO ELEVATED BLOOD PRESSURE>150 Last administered on 07/14/16 05:27; Admin Dose 10 MG; Start 07/11/16 at 15:30 Lactulose (Enulose) 20 gm BID PRN PO CONSTIPATION; Start 07/11/16 at 15:30 Nystatin 1 applic DAILY TOP Last administered on 07/14/16 10:46; Admin Dose 1 APPLIC; Start 07/12/16 at 09:00 Olanzapine (Zyprexa) 5 mg DAILY GTB Last administered on 07/12/16 09:56; Admin Dose 5 MG; Start 07/12/16 at 09:00 Pantoprazole (Protonix Tab) 40 mg DAILY PO Last administered on 07/13/16 08:46 ; Admin Dose 40 MG; Start 07/12/16 at 09:00 Potassium Chloride (Klor-Con 20) 40 meq DAILY PO Last administered on 08:44; Admin Dose 40 MEQ; Start 07/12/16 at 09:00 Sertraline HCl (Zoloft) 100 mg DAILY GTB Last administered on 07/12/16 11:12; Admin Dose 100 MG; Start 07/12/16 at 09:00 Simethicone (Mylicon) 80 mg Q6H PRN PO DISTENSION/GAS/BLOATING; Start 07/11/16 at 15:30 Sucralfate (Carafate) 1 gm Q6 PO Last administered on 07/14/16 05:40; Admin Dose 1 GM; Start 07/11/16 at 18:00 Lorazepam (Ativan) 0.5 mg Q6H PRN IV ANXIETY; Start 07/11/16 at 15:30 Ondansetron HCl (Zofran Inj) 4 mg Q6H PRN IV NAUSEA AND/OR VOMITING; Start at 15:30 Nitroglycerin (Nitroglycerin (Sl Tab) 0.4 Mg) 1 tab Q5M PRN SL CHEST PAIN; Start 07/11/16 at 15:30 Acetaminophen (Tylenol Tab) 650 mg Q6H PRN PO PAIN LEVEL 1-3 OR FEVER; Start at 15:30 Acetaminophen (Tylenol Supp) 650 mg Q6H PRN [place] PAIN LEVEL 1-3 OR FEVER; Start 07/11/16 at 15:30 IV Flush (NS 10 ml) 10 ml PRN PRN IV IV PROTOCOL; Start 07/11/16 at 19:30 Assessment/Plan Chief Complaint/Hosp Course IMPRESSION AND PLAN: 1. Ventilator-dependent respiratory failure. 2. ESBL UTI sensitive to Zosyn 3. Morbid obesity. 4. Acute on chronic hypercapnic respiratory failure and hypoxic respiratory failure. 5. Radiographic evidence of left pleural effusion. 6. Anemia likely of chronic disease The patient will require: 1. Continued mechanical ventilation. 2. Increased tidal volume and respiratory rate for hypercapnia. Decrease FiO2 3. Continued antibiotics for urinary tract infection. 4. Continued feeding as tolerated. 5. DVT and GI prophylaxis. 6. Transfuse 1 unit packed red blood cells Problems: DOROTHY BUENROSTRO MD, [facility] Jul 14, 2016 10:56
[2016-07-14 12:23] LABS: ADD SCAN DIFF NO
[2016-07-14 12:30] LABS: ABNORMAL IP MESSAGE 1; BASOPHILS % 0.3 % (0.0-2.0); EOSINOPHILS # 0.5 10^3/ul (0.0-0.5); EOSINOPHILS % 8.5 % (0.0-7.0); HEMATOCRIT 28.4 % (42.0-52.0); HEMOGLOBIN 7.9 g/dl (14.0-18.0); LYMPHOCYTES # 0.6 10^3/ul (0.8-2.9); LYMPHOCYTES % 10.3 % (15.0-51.0); MEAN CORPUSCULAR HGB CONC 27.8 g/dl (32.0-37.0); MEAN CORPUSCULAR VOLUME 93.4 fl (82.0-101.0); MEAN PLATELET VOLUME 12.1 fl (7.4-10.4); MONOCYTE # 0.4 10^3/ul (0.3-0.9); NEUTROPHIL # 4.5 10^3/ul (1.6-7.5); NEUTROPHILS % 74.6 % (39.0-77.0); PLATELET COUNT 182 10^3/UL (140-415); RED BLOOD COUNT 3.04 10^6/ul (4.70-6.10); RED CELL DISTRIBUTION WIDTH 18.2 % (11.5-14.5)
[2016-07-14] MEDS: NA PHOSPHATE/BIPHOS 133 ML ENEMA PR PRN (14:37)
--- NOTE | 2016-07-14 15:35 | PDOCDIS ---
Discharge Instructions CONDITION Patient Condition: Good HOME CARE INSTRUCTIONS: Diet Instructions: Reduced CalorieSpecial Diet: Cardiac ACTIVITY: Activity Restrictions: Special Exercises DORYS TINOCO MD Jul 14, 2016 15:34
--- NOTE | 2016-07-14 15:57 | CONS ---
Date/Time of Note Date/Time of Note DATE: 07/14/16 TIME: 15:56 Assessment/Plan Assessment/Plan Chief Complaint/Hosp Course Assessment: Acute on chronic hypoxic and hypercarbic respiratory failure, chronically ventilator dependent - from heart failure, possible pneumonia Acute on chronic diastolic heart failure - improving with diuresis Paroxysmal atrial fibrillation - currently sinus rhythm Chronic left bundle branch block Hypertension Morbid obesity Obstructive sleep apnea Urinary tract infection, ESBL E. coli - antibiotics per infectious disease Recommendations: -echocardiogram 03/31/2016 showed LVEF 55%, moderate LVH, mild diastolic dysfunction - will not repeat at this time -continue diuresis - now on Lasix 40mg IV BID -continue aspirin 81mg daily -continue amiodarone 200mg BID and diltiazem 60mg BID Problems: Consultation Date/Type/Reason Admit Date/Time Jul 12, 2016 at 14:14 Initial Consult Date 07/13/16 Type of Consultation: Cardiology 24 HR Interval Summary Free Text/Dictation Breathing improved. FiO2 down to 50%. Detailed Summary Additional Comments 14 point review of systems without changes. Exam/Review of Systems Vital Signs Vitals Vital Signs Date Time Temp Pulse Resp B/P Pulse Ox O2 Delivery O2 Flow Rate FiO2 07/14/16 13:30 68 31 92 50 07/14/16 11:20 98.8 157/71 07/12/16 19:22 Mechanical Ventilator Intake and Output 07/13/16 07/13/16 07/14/16 15:00 23:00 07:00 Intake Total 1500 ml 450 ml Balance 1500 ml 450 ml Exam Constitutional: alert, obese (morbidly) Psych: no complaints Head: atraumatic, normocephalic Eyes: nl conjunctiva, nl lids ENMT: nl external ears & nose, nl nasal mucosa & septum Neck: other (tracheostomy), supple Respiratory: diminished breath sounds Cardiovascular: regular rate and rhythm Gastrointestinal: non-tender, soft Extremities: edema, No clubbing, No cyanosis Results Result Diagram: 07/14/16 1150 07/13/16 1040 Results 24 hrs Laboratory Tests Test 07/14/16 11:50 White Blood Count 6.0 Red Blood Count 3.04 L Hemoglobin 7.9 L Hematocrit 28.4 L Mean Corpuscular Volume 93.4 Mean Corpuscular Hemoglobin 26.0 L Mean Corpuscular Hemoglobin Concent 27.8 L Red Cell Distribution Width 18.2 H Platelet Count 182 Mean Platelet Volume 12.1 H Neutrophils % 74.6 Lymphocytes % 10.3 L Monocytes % 6.0 Eosinophils % 8.5 H Basophils % 0.3 Nucleated Red Blood Cells % 0.0 Neutrophils # 4.5 Lymphocytes # 0.6 L Monocytes # 0.4 Eosinophils # 0.5 Basophils # 0.0 Nucleated Red Blood Cells # 0.0 Medications Medications Current Medications Amiodarone HCl (Cordarone) 200 mg BID GTB Last administered on 07/14/16 10:44 ; Admin Dose 200 MG; Start 07/11/16 at 21:00 Aspirin (Aspirin) 81 mg DAILY PO Last administered on 07/14/16 10:44; Admin Dose 81 MG; Start 07/12/16 at 09:00 Bisacodyl (Dulcolax) 5 mg DAILY PRN PO CONSTIPATION; Start 07/11/16 at 15:30 Diltiazem HCl (Cardizem Sr) 60 mg Q12 PO Last administered on 07/14/16 10:44; Admin Dose 60 MG; Start 07/11/16 at 21:00 Enoxaparin Sodium (Lovenox) 40 mg DAILY SC Last administered on 07/14/16 10:49 ; Admin Dose 40 MG; Start 07/12/16 at 09:00 Gabapentin (Neurontin) 300 mg TID GTB Last administered on 07/14/16 13:53; Admin Dose 300 MG; Start 07/11/16 at 21:00 Hydralazine HCl (Apresoline) 10 mg Q4 PRN PO ELEVATED BLOOD PRESSURE>150 Last administered on 07/14/16 05:27; Admin Dose 10 MG; Start 07/11/16 at 15:30 Lactulose (Enulose) 20 gm BID PRN PO CONSTIPATION; Start 07/11/16 at 15:30 Nystatin 1 applic DAILY TOP Last administered on 07/14/16 10:46; Admin Dose 1 APPLIC; Start 07/12/16 at 09:00 Olanzapine (Zyprexa) 5 mg DAILY GTB Last administered on 07/14/16 10:55; Admin Dose 5 MG; Start 07/12/16 at 09:00 Pantoprazole (Protonix Tab) 40 mg DAILY PO Last administered on 07/14/16 10:55 ; Admin Dose 40 MG; Start 07/12/16 at 09:00 Potassium Chloride (Klor-Con 20) 40 meq DAILY PO Last administered on 10:55; Admin Dose 40 MEQ; Start 07/12/16 at 09:00 Sertraline HCl (Zoloft) 100 mg DAILY GTB Last administered on 07/14/16 10:55; Admin Dose 100 MG; Start 07/12/16 at 09:00 Simethicone (Mylicon) 80 mg Q6H PRN PO DISTENSION/GAS/BLOATING; Start 07/11/16 at 15:30 Sucralfate (Carafate) 1 gm Q6 PO Last administered on 07/14/16 13:53; Admin Dose 1 GM; Start 07/11/16 at 18:00 Lorazepam (Ativan) 0.5 mg Q6H PRN IV ANXIETY; Start 07/11/16 at 15:30 Ondansetron HCl (Zofran Inj) 4 mg Q6H PRN IV NAUSEA AND/OR VOMITING; Start at 15:30 Nitroglycerin (Nitroglycerin (Sl Tab) 0.4 Mg) 1 tab Q5M PRN SL CHEST PAIN; Start 07/11/16 at 15:30 Acetaminophen (Tylenol Tab) 650 mg Q6H PRN PO PAIN LEVEL 1-3 OR FEVER; Start at 15:30 Acetaminophen (Tylenol Supp) 650 mg Q6H PRN [place] PAIN LEVEL 1-3 OR FEVER; Start 07/11/16 at 15:30 IV Flush (NS 10 ml) 10 ml PRN PRN IV IV PROTOCOL; Start 07/11/16 at 19:30 Docusate Sodium (Colace) 100 mg BID PO ; Start 07/14/16 at 14:00 Sodium Biphosphate/ Sodium Phosphate (Fleet Enema) 133 ml Q48H PRN [place] CONSTIPATION Last administered on 07/14/16 14:37; Admin Dose 133 ML; Start at 14:00 Furosemide 20 mg 20 mg ONCE IV ; Start 07/14/16 at 16:00; Stop 07/15/16 at 15:59 Ertapenem/Sodium Chloride (Invanz/NS) 100 ml @ 200 mls/hr Q24H IVPB ; Start at 16:00 RENAE SKY MD Jul 14, 2016 15:57
[2016-07-14] MEDS ORDERED: FUROSEMIDE 20 MG INJ IV SCH (16:00)
--- NOTE | 2016-07-14 16:05 | PN ---
DATE: 07/14/2016 INFECTIOUS DISEASE PROGRESS NOTE SUBJECTIVE: No events overnight. Patient is alert, looks comfortable. Denies pain. No fevers. WB C 6. No shift, no bands. BUN 18, creatinine 1.14. MICROBIOLOGY: Urine culture growing E. coli ESBL. ANTIMICROBIALS: The patient is on Zosyn. INDWELLINGS: Trach. PICC line placed on 07/11/2016. PHYSICAL EXAMINATION: GENERAL: This is a morbidly obese, elderly man, who is alert, in no distress. HEENT: Head atraumatic, normocephalic. Sclerae anicteric. Buccal mucosa dry. NECK: Supple, tracheostomy present. CHEST: Chest rise is symmetrical. Breath sounds diminished. HEART: S1, S2. ABDOMEN: Obese. Soft. Bowel tones hypoactive. EXTREMITIES: With bilateral edema. ASSESSMENT: 1. Systemic inflammatory response syndrome. 2. Escherichia coli extended-spectrum beta-lactamase urinary tract infection. 3. Morbid obesity. 4. Chronic respiratory failure. 5. Coronary artery disease, with a history of permanent pacemaker placement. PLAN: The patient remains stable. We are going to change antibiotics to Invanz. Continue the pres ent care. Monitor postvoid residual for retention. Dictated By: KATI AKHTAR SCRAP SHEAR OPERATOR for COLEEN PORTER MD NI/NTS Conf#: [id number] DID#: [id number]
--- NOTE | 2016-07-14 16:13 | DS ---
DATE OF ADMISSION: 07/12/2016 DATE OF DISCHARGE: 07/14/2016 CONSULTANTS: 1. Dr. Brandon Snyder. 2. Dr. Ewdard Hill. PROCEDURES: None. DISCHARGE DIAGNOSES: 1. Ventilator dependent respiratory failure. 2. Extended spectrum beta lactamase urinary tract infection sensitive to Zosyn. 3. Morbid obesity. 4. Acute on chronic hypercapnic respiratory failure and hypoxic respiratory failure. 5. Left pleural effusion. 6. Anemia of chronic disease, status post transfusion. 7. Paroxysmal atrial fibrillation, currently sinus rhythm. 8. Chronic left bundle branch block. 9. Essential hypertension. 10. Obstructive sleep apnea. 11. Status post tracheostomy. MEDICATIONS: 1. Tylenol. 2. Albuterol. 3. Amiodarone. 4. Aspirin. 5. Dulcolax. 6. Diltiazem. 7. Colace. 8. Lovenox. 9. Lasix. 10. Gabapentin. 11. Hydralazine. 12. Lactulose. 13. Nitroglycerin. 14. Nystatin. 15. Zyprexa. 16. Protonix. 17. Zosyn x8 days. 18. Potassium chloride. 19. Sertraline. 20. Simethicone. 21. Sucralfate. 22. Tramadol. 23. Ferrous sulfate. 24. Vitamin C. ALLERGIES: HYDROMORPHONE AND MORPHINE. HOSPITAL COURSE: This is a 66-year-old gentleman with past medical history of respiratory distress status post tracheostomy, COPD, arrhythmia, coronary artery disease, congestive heart failure, neuro shanti, mood disorder, GERD, depression, GI bleed and morbid obesity with BMI of 108 who [facility] at [facility] and is dependent to others for his daily activities secondary to body habit us and is bed bound. The patient presented to the ER having hypoxemia, low oxygen saturation, short ness of breath. His chest x-ray upon admission demonstrated moderate cardiac enlargement, congestiv e heart failure with pulmonary edema, left pleural effusion. He was seen and evaluated by pulmonolo gist and display trimmer. The patient has a history of atrial fibrillation and was continued on amioda cabrera, Cardizem and Eliquis. His urine culture was found to be positive for E. coli ESBL, multidrug resistant, sensitive to Zosyn and imipenem. The patient continued to be diuresed during the course of hospitalization. He was found with IV Lasix. His breathing status has been improving significa ntly. His hemoglobin and hematocrit have been stable during the hospitalization with hemoglobin dec reasing from 8.7 to 7.9. His WBC improved from 13.4 to 6.0. He will be typed and screened and will be transfused 1 unit of packed red blood cells prior to discharge. Also, he will be treated with 1 dose of IV Lasix, status post transfusion prior to being transferred back to [facility]. His labs: WBC 6.0, hemoglobin 7.9, hematocrit 28.5, platelets 182. Sodium 141, potassium 3.8, chloride 100, bicarbonate 36, BUN 18, creatinine 1.14, glucose 143, lactic acid 2.0, troponin negat galina. CONDITION AT TIME OF DISCHARGE: Fair. Dictated By: DORYS TINOCO MD PN/NTS Conf#: [id number] DID#: [id number]
[2016-07-14] MEDS: DOCUSATE SODIUM 100 MG CAP PO SCH ×2 (17:02→21:00)
[2016-07-14] MEDS: ERTAPENEM SODIUM 1 GM in SOD CHLORIDE 0.9% 100 ML IVPB SCH (18:26)
[2016-07-14] MEDS: traMADol 50 MG TAB PO PRN (23:56)
[2016-07-15] VITALS (17 sets, daily range): BP systolic 139–170; BP diastolic 63–80; RESP 17–35
[2016-07-15] MEDS ORDERED: ALTEPLASE (CATHFLO) 2 MG INJ CATHETER ONE (01:00)
[2016-07-15] MEDS: SUCRALFATE 1 GM TAB PO SCH ×4 (06:00→17:11)
[2016-07-15] MEDS: FUROSEMIDE 40 MG INJ IV SCH (06:00)
[2016-07-15] MEDS: OLANZAPINE 5 MG TAB GTB SCH (08:18)
[2016-07-15] MEDS: AMIODARONE 200 MG TAB GTB SCH ×2 (08:18→21:31)
[2016-07-15] MEDS: ASPIRIN 81 MG TAB PO SCH (08:18)
[2016-07-15] MEDS: SERTRALINE 100 MG TAB GTB SCH (08:18)
[2016-07-15] MEDS: traMADol 50 MG TAB PO PRN ×2 (08:19→12:01)
[2016-07-15] MEDS: POTASSIUM CHLORIDE (SR) 20 MEQ TAB PO SCH (08:19)
[2016-07-15] MEDS: PANTOPRAZOLE (EC) 40 MG TAB PO SCH (08:19)
[2016-07-15] MEDS: DOCUSATE SODIUM 100 MG CAP PO SCH ×2 (08:19→21:00)
[2016-07-15] MEDS: GABAPENTIN 300 MG CAP GTB SCH ×3 (08:19→21:30)
[2016-07-15] MEDS: DILTIAZEM (SR) 60 MG CAP PO SCH ×2 (08:19→21:31)
[2016-07-15] MEDS: ENOXAPARIN 40 MG/0.4 ML SYG SC SCH (08:23)
[2016-07-15] MEDS: NYSTATIN 15 GM POWDER BTL TOP SCH (08:27)
[2016-07-15] MEDS: ALBUTEROL HFA 8 GM INHALER INH SCH ×2 (09:05→20:55)
--- NOTE | 2016-07-15 13:47 | CONS ---
Date/Time of Note Date/Time of Note DATE: 07/15/16 TIME: 13:45 Consult Date/Type/Reason Admit Date/Time Jul 12, 2016 at 14:14 Initial Consult Date 07/13/16 Type of Consultation: pulmonary Subjective Patient remains stable this morning awake alert and oriented on 50% FiO2 PEEP of 5 He is requesting a speaking valve Objective Vital Signs Date Time Temp Pulse Resp B/P Pulse Ox O2 Delivery O2 Flow Rate FiO2 07/15/16 11:31 98.0 71 26 170/80 93 07/15/16 11:20 50 07/12/16 19:22 Mechanical Ventilator Intake and Output 07/14/16 07/14/16 07/15/16 15:00 23:00 07:00 Intake Total 100 ml 1500 ml 1000 ml Balance 100 ml 1500 ml 1000 ml Exam PHYSICAL EXAMINATION: GENERAL: Morbidly appearing gentleman on mechanical ventilation via tracheostomy. VITAL SIGNS: As above NECK: Supple. No JVD, lymphadenopathy. Trach site clean, intact. CARDIAC: S1, S2. Distant heart sounds. CHEST: Diminished air entry bilaterally. ABDOMEN: Obese morbidly. Soft, nontender. No guarding or rebound. EXTREMITIES: No cyanosis, clubbing. 1+ edema. NEUROLOGIC: Unable to assess. Results/Medications Result Diagram: 07/14/16 1150 07/13/16 1040 Medications Current Medications Amiodarone HCl (Cordarone) 200 mg BID GTB Last administered on 07/15/16 08:18 ; Admin Dose 200 MG; Start 07/11/16 at 21:00 Aspirin (Aspirin) 81 mg DAILY PO Last administered on 07/15/16 08:18; Admin Dose 81 MG; Start 07/12/16 at 09:00 Bisacodyl (Dulcolax) 5 mg DAILY PRN PO CONSTIPATION; Start 07/11/16 at 15:30 Diltiazem HCl (Cardizem Sr) 60 mg Q12 PO Last administered on 07/15/16 08:19; Admin Dose 60 MG; Start 07/11/16 at 21:00 Enoxaparin Sodium (Lovenox) 40 mg DAILY SC Last administered on 07/15/16 08:23 ; Admin Dose 40 MG; Start 07/12/16 at 09:00 Gabapentin (Neurontin) 300 mg TID GTB Last administered on 07/15/16 12:00; Admin Dose 300 MG; Start 07/11/16 at 21:00 Hydralazine HCl (Apresoline) 10 mg Q4 PRN PO ELEVATED BLOOD PRESSURE>150 Last administered on 07/15/16 13:04; Admin Dose 10 MG; Start 07/11/16 at 15:30 Lactulose (Enulose) 20 gm BID PRN PO CONSTIPATION; Start 07/11/16 at 15:30 Nystatin 1 applic DAILY TOP Last administered on 07/15/16 08:27; Admin Dose 1 APPLIC; Start 07/12/16 at 09:00 Olanzapine (Zyprexa) 5 mg DAILY GTB Last administered on 07/15/16 08:18; Admin Dose 5 MG; Start 07/12/16 at 09:00 Pantoprazole (Protonix Tab) 40 mg DAILY PO Last administered on 07/15/16 08:19 ; Admin Dose 40 MG; Start 07/12/16 at 09:00 Potassium Chloride (Klor-Con 20) 40 meq DAILY PO Last administered on 08:19; Admin Dose 40 MEQ; Start 07/12/16 at 09:00 Sertraline HCl (Zoloft) 100 mg DAILY GTB Last administered on 07/15/16 08:18; Admin Dose 100 MG; Start 07/12/16 at 09:00 Simethicone (Mylicon) 80 mg Q6H PRN PO DISTENSION/GAS/BLOATING; Start 07/11/16 at 15:30 Sucralfate (Carafate) 1 gm Q6 PO Last administered on 07/15/16 11:58; Admin Dose 1 GM; Start 07/11/16 at 18:00 Lorazepam (Ativan) 0.5 mg Q6H PRN IV ANXIETY; Start 07/11/16 at 15:30 Ondansetron HCl (Zofran Inj) 4 mg Q6H PRN IV NAUSEA AND/OR VOMITING; Start at 15:30 Nitroglycerin (Nitroglycerin (Sl Tab) 0.4 Mg) 1 tab Q5M PRN SL CHEST PAIN; Start 07/11/16 at 15:30 Acetaminophen (Tylenol Tab) 650 mg Q6H PRN PO PAIN LEVEL 1-3 OR FEVER; Start at 15:30 Acetaminophen (Tylenol Supp) 650 mg Q6H PRN SC PAIN LEVEL 1-3 OR FEVER; Start 07/11/16 at 15:30 IV Flush (NS 10 ml) 10 ml PRN PRN IV IV PROTOCOL; Start 07/11/16 at 19:30 Docusate Sodium (Colace) 100 mg BID PO Last administered on 07/15/16 08:19; Admin Dose 100 MG; Start 07/14/16 at 14:00 Sodium Biphosphate/ Sodium Phosphate (Fleet Enema) 133 ml Q48H PRN SC CONSTIPATION Last administered on 07/14/16 14:37; Admin Dose 133 ML; Start at 14:00 Furosemide 20 mg 20 mg ONCE IV Last administered on 07/14/16 17:02; Admin Dose 20 MG; Start 07/14/16 at 16:00; Stop 07/15/16 at 15:59 Ertapenem/Sodium Chloride (Invanz/NS) 100 ml @ 200 mls/hr Q24H IVPB Last administered on 07/14/16 18:26; Admin Dose 200 MLS/HR; Start 07/14/16 at 16:00 Assessment/Plan Chief Complaint/Hosp Course IMPRESSION AND PLAN: 1. Ventilator-dependent respiratory failure. 2. ESBL UTI sensitive to Zosyn 3. Morbid obesity. 4. Acute on chronic hypercapnic respiratory failure and hypoxic respiratory failure. 5. Radiographic evidence of left pleural effusion. 6. Anemia likely of chronic disease status post transfusion 1 unit packed red blood cells The patient will require: 1. Continued mechanical ventilation. 2. Increased tidal volume and respiratory rate for hypercapnia. Decrease FiO2 3. Continued antibiotics for urinary tract infection. Sensitive to Zosyn and imipenem 4. Continued feeding as tolerated. 5. DVT and GI prophylaxis. 6. Consider transfusion of second unit packed red blood cells Discharge planning okay from pulmonary standpoint Problems: DOROTHY BUENROSTRO MD, [facility] Jul 15, 2016 13:46
--- NOTE | 2016-07-15 14:28 | PN ---
Date/Time of Note Date/Time of Note DATE: 07/15/16 TIME: 14:23 Assessment/Plan VTE Prophylaxis VTE Prophylaxis Intervention: LMWH Lines/Catheters IV [facility]ter Type (from [facility] PICC Line Central line still needed: Yes Urinary Cath still in place: No Assessment/Plan Chief Complaint/Hosp Course ASSESSMENT AND PLAN: 1. Acute on chronic respiratory failure. Likely secondary to pulmonary edema versus pneumonia sql ssrs developer has been consulted, continue breathing treatment, antibiotics, continue vent management 2. Morbid obesity with body mass index of 108. Place the patient on low calorie diet 3. Essential hypertension. Continue medical management 4. History of arrhythmia, on amiodarone, Lovenox and Cardizem. 5. Major depression. Continue Zyprexa and Zoloft. 6. History of gastrointestinal bleed. Continue PPI and sucralfate. 7. Left pleural effusion. Continue broad spectrum IV antibiotics. 8. Pulmonary edema on Lasix. 9. UTI with ESBL. continue Zosyn Deep venous thrombosis prophylaxis, on Lovenox. We will continue to monitor patient closely. Further recommendations, management and treatment as per clinical course. Plan to discharge back to [facility] facility if urinalysis negative for ESBL Problems: Subjective 24 Hr Interval Summary Free Text/Dictation Patient denies of any chest pain or shortness of breath Tolerating vent Denies any abdominal pain Exam/Review of Systems Vital Signs Vitals Vital Signs Date Time Temp Pulse Resp B/P Pulse Ox O2 Delivery O2 Flow Rate FiO2 07/15/16 11:31 98.0 71 26 170/80 93 07/15/16 11:20 50 07/12/16 19:22 Mechanical Ventilator Intake and Output 07/14/16 07/14/16 07/15/16 15:00 23:00 07:00 Intake Total 100 ml 1500 ml 1000 ml Balance 100 ml 1500 ml 1000 ml Exam General: The patient is morbidly obese with BMI of 105, Not in acute distress. HEENT: Atraumatic, normocephalic. The pupils are equal and round . Neck: Supple with full range of motion. Chest: Normal Lungs: Lung sounds are distant although , clear to auscultation bilaterally Heart: Normal S1-S2, Regular rhythm and rate. Abdomen: Abdominal contour is morbidly obese , soft , nontender, nondistended Extremities: Normal to inspection, trace edema no cyanosis, Neurologic: Normal mental status,The patient is awake, alert and oriented . Results Result Diagram: 07/14/16 1150 07/13/16 1040 Medications Medications Current Medications Amiodarone HCl (Cordarone) 200 mg BID GTB Last administered on 07/15/16 08:18 ; Admin Dose 200 MG; Start 07/11/16 at 21:00 Aspirin (Aspirin) 81 mg DAILY PO Last administered on 07/15/16 08:18; Admin Dose 81 MG; Start 07/12/16 at 09:00 Bisacodyl (Dulcolax) 5 mg DAILY PRN PO CONSTIPATION; Start 07/11/16 at 15:30 Diltiazem HCl (Cardizem Sr) 60 mg Q12 PO Last administered on 07/15/16 08:19; Admin Dose 60 MG; Start 07/11/16 at 21:00 Enoxaparin Sodium (Lovenox) 40 mg DAILY SC Last administered on 07/15/16 08:23 ; Admin Dose 40 MG; Start 07/12/16 at 09:00 Gabapentin (Neurontin) 300 mg TID GTB Last administered on 07/15/16 12:00; Admin Dose 300 MG; Start 07/11/16 at 21:00 Hydralazine HCl (Apresoline) 10 mg Q4 PRN PO ELEVATED BLOOD PRESSURE>150 Last administered on 07/15/16 13:04; Admin Dose 10 MG; Start 07/11/16 at 15:30 Lactulose (Enulose) 20 gm BID PRN PO CONSTIPATION; Start 07/11/16 at 15:30 Nystatin 1 applic DAILY TOP Last administered on 07/15/16 08:27; Admin Dose 1 APPLIC; Start 07/12/16 at 09:00 Olanzapine (Zyprexa) 5 mg DAILY GTB Last administered on 07/15/16 08:18; Admin Dose 5 MG; Start 07/12/16 at 09:00 Pantoprazole (Protonix Tab) 40 mg DAILY PO Last administered on 07/15/16 08:19 ; Admin Dose 40 MG; Start 07/12/16 at 09:00 Potassium Chloride (Klor-Con 20) 40 meq DAILY PO Last administered on 08:19; Admin Dose 40 MEQ; Start 07/12/16 at 09:00 Sertraline HCl (Zoloft) 100 mg DAILY GTB Last administered on 07/15/16 08:18; Admin Dose 100 MG; Start 07/12/16 at 09:00 Simethicone (Mylicon) 80 mg Q6H PRN PO DISTENSION/GAS/BLOATING; Start 07/11/16 at 15:30 Sucralfate (Carafate) 1 gm Q6 PO Last administered on 07/15/16 11:58; Admin Dose 1 GM; Start 07/11/16 at 18:00 Lorazepam (Ativan) 0.5 mg Q6H PRN IV ANXIETY; Start 07/11/16 at 15:30 Ondansetron HCl (Zofran Inj) 4 mg Q6H PRN IV NAUSEA AND/OR VOMITING; Start at 15:30 Nitroglycerin (Nitroglycerin (Sl Tab) 0.4 Mg) 1 tab Q5M PRN SL CHEST PAIN; Start 07/11/16 at 15:30 Acetaminophen (Tylenol Tab) 650 mg Q6H PRN PO PAIN LEVEL 1-3 OR FEVER; Start at 15:30 Acetaminophen (Tylenol Supp) 650 mg Q6H PRN [place] PAIN LEVEL 1-3 OR FEVER; Start 07/11/16 at 15:30 IV Flush (NS 10 ml) 10 ml PRN PRN IV IV PROTOCOL; Start 07/11/16 at 19:30 Docusate Sodium (Colace) 100 mg BID PO Last administered on 07/15/16 08:19; Admin Dose 100 MG; Start 07/14/16 at 14:00 Sodium Biphosphate/ Sodium Phosphate (Fleet Enema) 133 ml Q48H PRN [place] CONSTIPATION Last administered on 07/14/16 14:37; Admin Dose 133 ML; Start at 14:00 Furosemide 20 mg 20 mg ONCE IV Last administered on 07/14/16 17:02; Admin Dose 20 MG; Start 07/14/16 at 16:00; Stop 07/15/16 at 15:59 Ertapenem/Sodium Chloride (Invanz/NS) 100 ml @ 200 mls/hr Q24H IVPB Last administered on 07/14/16 18:26; Admin Dose 200 MLS/HR; Start 07/14/16 at 16:00 DORYS TINOCO MD Jul 15, 2016 14:28
--- NOTE | 2016-07-15 15:23 | CONS ---
Date/Time of Note Date/Time of Note DATE: 07/15/16 TIME: 15:22 Assessment/Plan Assessment/Plan Chief Complaint/Hosp Course SUBJECTIVE: No events overnight. Patient is alert, looks comfortable. Denies pain. No fevers. MICROBIOLOGY: Urine culture growing E. coli ESBL. ANTIMICROBIALS: Invanz INDWELLINGS: Trach. PICC line placed on 07/11/2016. PHYSICAL EXAMINATION: GENERAL: This is a morbidly obese, elderly man, who is alert, in no distress. HEENT: Head atraumatic, normocephalic. Sclerae anicteric. Buccal mucosa dry. NECK: Supple, tracheostomy present. CHEST: Chest rise is symmetrical. Breath sounds diminished. HEART: S1, S2. ABDOMEN: Obese. Soft. Bowel tones hypoactive. EXTREMITIES: With bilateral edema. ASSESSMENT: 1. Systemic inflammatory response syndrome. 2. Escherichia coli extended-spectrum beta-lactamase urinary tract infection. 3. Morbid obesity. 4. Chronic respiratory failure. 5. Coronary artery disease, with a history of permanent pacemaker placement. PLAN: The patient remains stable. Continue the present care/abx. Monitor postvoid residual for retention. DW staff Problems: Consultation Date/Type/Reason Admit Date/Time Jul 12, 2016 at 14:14 Initial Consult Date 07/13/16 Type of Consultation: id Exam/Review of Systems Vital Signs Vitals Vital Signs Date Time Temp Pulse Resp B/P Pulse Ox O2 Delivery O2 Flow Rate FiO2 07/15/16 13:55 72 35 94 50 07/15/16 11:31 98.0 170/80 07/12/16 19:22 Mechanical Ventilator Intake and Output 07/14/16 07/14/16 07/15/16 15:00 23:00 07:00 Intake Total 100 ml 1500 ml 1000 ml Balance 100 ml 1500 ml 1000 ml Results Result Diagram: 07/14/16 1150 07/13/16 1040 Medications Medications Current Medications Amiodarone HCl (Cordarone) 200 mg BID GTB Last administered on 07/15/16 08:18 ; Admin Dose 200 MG; Start 07/11/16 at 21:00 Aspirin (Aspirin) 81 mg DAILY PO Last administered on 07/15/16 08:18; Admin Dose 81 MG; Start 07/12/16 at 09:00 Bisacodyl (Dulcolax) 5 mg DAILY PRN PO CONSTIPATION; Start 07/11/16 at 15:30 Diltiazem HCl (Cardizem Sr) 60 mg Q12 PO Last administered on 07/15/16 08:19; Admin Dose 60 MG; Start 07/11/16 at 21:00 Enoxaparin Sodium (Lovenox) 40 mg DAILY SC Last administered on 07/15/16 08:23 ; Admin Dose 40 MG; Start 07/12/16 at 09:00 Gabapentin (Neurontin) 300 mg TID GTB Last administered on 07/15/16 12:00; Admin Dose 300 MG; Start 07/11/16 at 21:00 Hydralazine HCl (Apresoline) 10 mg Q4 PRN PO ELEVATED BLOOD PRESSURE>150 Last administered on 07/15/16 13:04; Admin Dose 10 MG; Start 07/11/16 at 15:30 Lactulose (Enulose) 20 gm BID PRN PO CONSTIPATION; Start 07/11/16 at 15:30 Nystatin 1 applic DAILY TOP Last administered on 07/15/16 08:27; Admin Dose 1 APPLIC; Start 07/12/16 at 09:00 Olanzapine (Zyprexa) 5 mg DAILY GTB Last administered on 07/15/16 08:18; Admin Dose 5 MG; Start 07/12/16 at 09:00 Pantoprazole (Protonix Tab) 40 mg DAILY PO Last administered on 07/15/16 08:19 ; Admin Dose 40 MG; Start 07/12/16 at 09:00 Potassium Chloride (Klor-Con 20) 40 meq DAILY PO Last administered on 08:19; Admin Dose 40 MEQ; Start 07/12/16 at 09:00 Sertraline HCl (Zoloft) 100 mg DAILY GTB Last administered on 07/15/16 08:18; Admin Dose 100 MG; Start 07/12/16 at 09:00 Simethicone (Mylicon) 80 mg Q6H PRN PO DISTENSION/GAS/BLOATING; Start 07/11/16 at 15:30 Sucralfate (Carafate) 1 gm Q6 PO Last administered on 07/15/16 11:58; Admin Dose 1 GM; Start 07/11/16 at 18:00 Lorazepam (Ativan) 0.5 mg Q6H PRN IV ANXIETY; Start 07/11/16 at 15:30 Ondansetron HCl (Zofran Inj) 4 mg Q6H PRN IV NAUSEA AND/OR VOMITING; Start at 15:30 Nitroglycerin (Nitroglycerin (Sl Tab) 0.4 Mg) 1 tab Q5M PRN SL CHEST PAIN; Start 07/11/16 at 15:30 Acetaminophen (Tylenol Tab) 650 mg Q6H PRN PO PAIN LEVEL 1-3 OR FEVER; Start at 15:30 Acetaminophen (Tylenol Supp) 650 mg Q6H PRN [place] PAIN LEVEL 1-3 OR FEVER; Start 07/11/16 at 15:30 IV Flush (NS 10 ml) 10 ml PRN PRN IV IV PROTOCOL; Start 07/11/16 at 19:30 Docusate Sodium (Colace) 100 mg BID PO Last administered on 07/15/16 08:19; Admin Dose 100 MG; Start 07/14/16 at 14:00 Sodium Biphosphate/ Sodium Phosphate (Fleet Enema) 133 ml Q48H PRN [place] CONSTIPATION Last administered on 07/14/16 14:37; Admin Dose 133 ML; Start at 14:00 Furosemide 20 mg 20 mg ONCE IV Last administered on 07/14/16 17:02; Admin Dose 20 MG; Start 07/14/16 at 16:00; Stop 07/15/16 at 15:59 Ertapenem/Sodium Chloride (Invanz/NS) 100 ml @ 200 mls/hr Q24H IVPB Last administered on 07/14/16 18:26; Admin Dose 200 MLS/HR; Start 07/14/16 at 16:00 KATI AKHTAR NP Jul 15, 2016 15:23
[2016-07-15] MEDS: ERTAPENEM SODIUM 1 GM in SOD CHLORIDE 0.9% 100 ML IVPB SCH (15:38)
--- NOTE | 2016-07-15 15:52 | CONS ---
Date/Time of Note Date/Time of Note DATE: 07/15/16 TIME: 15:49 Assessment/Plan Assessment/Plan Chief Complaint/Hosp Course Assessment: Acute on chronic hypoxic and hypercarbic respiratory failure, chronically ventilator dependent - from heart failure, possible pneumonia Acute on chronic diastolic heart failure - improved with diuresis Paroxysmal atrial fibrillation - currently sinus rhythm Chronic left bundle branch block Hypertension Morbid obesity Obstructive sleep apnea Urinary tract infection, ESBL E. coli - antibiotics per infectious disease Recommendations: -echocardiogram 03/31/2016 showed LVEF 55%, moderate LVH, mild diastolic dysfunction - will not repeat at this time -change Lasix to 40mg GT daily -continue aspirin 81mg daily -continue amiodarone 200mg BID and diltiazem 60mg BID Problems: Consultation Date/Type/Reason Admit Date/Time Jul 12, 2016 at 14:14 Initial Consult Date 07/13/16 Type of Consultation: Cardiology 24 HR Interval Summary Free Text/Dictation No acute events. Detailed Summary Additional Comments 14 point review of systems without changes. Exam/Review of Systems Vital Signs Vitals Vital Signs Date Time Temp Pulse Resp B/P Pulse Ox O2 Delivery O2 Flow Rate FiO2 07/15/16 15:44 98.5 73 25 142/65 92 07/15/16 13:55 50 07/12/16 19:22 Mechanical Ventilator Intake and Output 07/14/16 07/14/16 07/15/16 15:00 23:00 07:00 Intake Total 100 ml 1500 ml 1000 ml Balance 100 ml 1500 ml 1000 ml Exam Constitutional: alert, obese (morbidly) Psych: no complaints Head: atraumatic, normocephalic Eyes: nl conjunctiva, nl lids ENMT: nl external ears & nose, nl nasal mucosa & septum Neck: other (tracheostomy), supple Respiratory: diminished breath sounds Cardiovascular: regular rate and rhythm Gastrointestinal: non-tender, soft Extremities: edema, No clubbing, No cyanosis Results Result Diagram: 07/14/16 1150 07/13/16 1040 Medications Medications Current Medications Amiodarone HCl (Cordarone) 200 mg BID GTB Last administered on 07/15/16 08:18 ; Admin Dose 200 MG; Start 07/11/16 at 21:00 Aspirin (Aspirin) 81 mg DAILY PO Last administered on 07/15/16 08:18; Admin Dose 81 MG; Start 07/12/16 at 09:00 Bisacodyl (Dulcolax) 5 mg DAILY PRN PO CONSTIPATION; Start 07/11/16 at 15:30 Diltiazem HCl (Cardizem Sr) 60 mg Q12 PO Last administered on 07/15/16 08:19; Admin Dose 60 MG; Start 07/11/16 at 21:00 Enoxaparin Sodium (Lovenox) 40 mg DAILY SC Last administered on 07/15/16 08:23 ; Admin Dose 40 MG; Start 07/12/16 at 09:00 Gabapentin (Neurontin) 300 mg TID GTB Last administered on 07/15/16 12:00; Admin Dose 300 MG; Start 07/11/16 at 21:00 Hydralazine HCl (Apresoline) 10 mg Q4 PRN PO ELEVATED BLOOD PRESSURE>150 Last administered on 07/15/16 13:04; Admin Dose 10 MG; Start 07/11/16 at 15:30 Lactulose (Enulose) 20 gm BID PRN PO CONSTIPATION; Start 07/11/16 at 15:30 Nystatin 1 applic DAILY TOP Last administered on 07/15/16 08:27; Admin Dose 1 APPLIC; Start 07/12/16 at 09:00 Olanzapine (Zyprexa) 5 mg DAILY GTB Last administered on 07/15/16 08:18; Admin Dose 5 MG; Start 07/12/16 at 09:00 Pantoprazole (Protonix Tab) 40 mg DAILY PO Last administered on 07/15/16 08:19 ; Admin Dose 40 MG; Start 07/12/16 at 09:00 Potassium Chloride (Klor-Con 20) 40 meq DAILY PO Last administered on 08:19; Admin Dose 40 MEQ; Start 07/12/16 at 09:00 Sertraline HCl (Zoloft) 100 mg DAILY GTB Last administered on 07/15/16 08:18; Admin Dose 100 MG; Start 07/12/16 at 09:00 Simethicone (Mylicon) 80 mg Q6H PRN PO DISTENSION/GAS/BLOATING; Start 07/11/16 at 15:30 Sucralfate (Carafate) 1 gm Q6 PO Last administered on 07/15/16 11:58; Admin Dose 1 GM; Start 07/11/16 at 18:00 Lorazepam (Ativan) 0.5 mg Q6H PRN IV ANXIETY; Start 07/11/16 at 15:30 Ondansetron HCl (Zofran Inj) 4 mg Q6H PRN IV NAUSEA AND/OR VOMITING; Start at 15:30 Nitroglycerin (Nitroglycerin (Sl Tab) 0.4 Mg) 1 tab Q5M PRN SL CHEST PAIN; Start 07/11/16 at 15:30 Acetaminophen (Tylenol Tab) 650 mg Q6H PRN PO PAIN LEVEL 1-3 OR FEVER; Start at 15:30 Acetaminophen (Tylenol Supp) 650 mg Q6H PRN [place] PAIN LEVEL 1-3 OR FEVER; Start 07/11/16 at 15:30 IV Flush (NS 10 ml) 10 ml PRN PRN IV IV PROTOCOL; Start 07/11/16 at 19:30 Docusate Sodium (Colace) 100 mg BID PO Last administered on 07/15/16 08:19; Admin Dose 100 MG; Start 07/14/16 at 14:00 Sodium Biphosphate/ Sodium Phosphate (Fleet Enema) 133 ml Q48H PRN [place] CONSTIPATION Last administered on 07/14/16 14:37; Admin Dose 133 ML; Start at 14:00 Furosemide 20 mg 20 mg ONCE IV Last administered on 07/14/16 17:02; Admin Dose 20 MG; Start 07/14/16 at 16:00; Stop 07/15/16 at 15:59 Ertapenem/Sodium Chloride (Invanz/NS) 100 ml @ 200 mls/hr Q24H IVPB Last administered on 07/15/16 15:38; Admin Dose 200 MLS/HR; Start 07/14/16 at 16:00 RENAE SKY MD Jul 15, 2016 15:52
[2016-07-16] VITALS (18 sets, daily range): BP systolic 126–167; BP diastolic 60–71; RESP 17–34
[2016-07-16] MEDS: traMADol 50 MG TAB PO PRN ×3 (00:25→21:44)
[2016-07-16] MEDS: SUCRALFATE 1 GM TAB PO SCH ×4 (00:25→17:10)
[2016-07-16] MEDS: ALBUTEROL HFA 8 GM INHALER INH SCH ×2 (07:06→20:06)
[2016-07-16 07:33] LABS: ADD SCAN DIFF NO
[2016-07-16 07:41] LABS: ABNORMAL IP MESSAGE 1; BASOPHILS % 0.6 % (0.0-2.0); EOSINOPHILS # 0.7 10^3/ul (0.0-0.5); EOSINOPHILS % 10.2 % (0.0-7.0); HEMATOCRIT 31.1 % (42.0-52.0); HEMOGLOBIN 8.8 g/dl (14.0-18.0); LYMPHOCYTES # 0.9 10^3/ul (0.8-2.9); LYMPHOCYTES % 13.2 % (15.0-51.0); MEAN CORPUSCULAR HEMOGLOBIN 26.4 pg (29.0-33.0); MEAN CORPUSCULAR HGB CONC 28.3 g/dl (32.0-37.0); MEAN CORPUSCULAR VOLUME 93.4 fl (82.0-101.0); MEAN PLATELET VOLUME 12.2 fl (7.4-10.4); MONOCYTE # 0.5 10^3/ul (0.3-0.9); MONOCYTES % 7.1 % (0.0-11.0); NEUTROPHIL # 4.4 10^3/ul (1.6-7.5); NEUTROPHILS % 68.3 % (39.0-77.0); PLATELET COUNT 199 10^3/UL (140-415); RED BLOOD COUNT 3.33 10^6/ul (4.70-6.10); RED CELL DISTRIBUTION WIDTH 18.2 % (11.5-14.5); WHITE BLOOD COUNT 6.5 10^3/ul (4.8-10.8)
[2016-07-16 08:28] LABS: POTASSIUM 3.8 mmol/L (3.5-5.1)
[2016-07-16 08:31] LABS: CREATININE 1.29 mg/dl (0.61-1.24)
[2016-07-16 08:32] LABS: CALCIUM 8.5 mg/dl (8.4-10.2)
[2016-07-16] MEDS: SERTRALINE 100 MG TAB GTB SCH (09:00)
[2016-07-16] MEDS: DOCUSATE SODIUM 100 MG CAP PO SCH ×2 (09:00→21:43)
[2016-07-16] MEDS: NYSTATIN 15 GM POWDER BTL TOP SCH (09:00)
[2016-07-16] MEDS: AMIODARONE 200 MG TAB GTB SCH ×2 (09:53→21:43)
[2016-07-16] MEDS: GABAPENTIN 300 MG CAP GTB SCH ×3 (09:53→21:43)
[2016-07-16] MEDS: PANTOPRAZOLE (EC) 40 MG TAB PO SCH (09:53)
[2016-07-16] MEDS: ASPIRIN 81 MG TAB PO SCH (09:54)
[2016-07-16] MEDS: OLANZAPINE 5 MG TAB GTB SCH (09:54)
[2016-07-16] MEDS: POTASSIUM CHLORIDE (SR) 20 MEQ TAB PO SCH (09:54)
[2016-07-16] MEDS: FUROSEMIDE 40 MG/4 ML CUP PEG SCH (10:12)
[2016-07-16] MEDS: DILTIAZEM (SR) 60 MG CAP PO SCH ×2 (10:12→21:43)
[2016-07-16] MEDS: ENOXAPARIN 40 MG/0.4 ML SYG SC SCH (10:14)
--- NOTE | 2016-07-16 11:56 | PN ---
Date/Time of Note Date/Time of Note DATE: 07/16/16 TIME: 11:53 Assessment/Plan VTE Prophylaxis VTE Prophylaxis Intervention: LMWH Lines/Catheters IV [facility] ([facility] PICC Line Central line still needed: Yes (For IV antibiotics for ESBL infection) Urinary Cath still in place: No Assessment/Plan Problems: (1) CHF exacerbation Status: Acute Comment: He is optimized medically and continues on treatment as per cardiology Qualifiers: Congestive heart failure type: diastolic Qualified Code: I50.33 - Acute on chronic diastolic congestive heart failure (2) Pickwickian syndrome Status: Acute Comment: An ideal world this patient will be a candidate for consideration of bariatric surgical procedures. However he is not interested such we will have to do our best to compensate for his situation (3) Morbid obesity Status: Acute Comment: Noted. Again he would do best with bariatric surgical procedure or some type of it enforced calorie restriction. He is not willing to cooperate with this Qualifiers: Obesity type: with alveolar hypoventilation Qualified Code: E66.2 - Morbid obesity with alveolar hypoventilation (4) UTI (urinary tract infection) Status: Acute Comment: He has a resistant bacterial infection. Once infectious disease clears him from the standpoint that we can send him back to [facility] living facility will make those arrangements. We will need ID to give us this opacification's and recommendation Qualifiers: Urinary tract infection type: acute cystitis Hematuria presence: without hematuria Qualified Code: N30.00 - Acute cystitis without hematuria (5) Acute and chronic respiratory failure Status: Acute Comment: He has trached and doing relatively well. Subjective 24 Hr Interval Summary Free Text/Dictation Patient reports he is anxious to return to his congregate living facility. Respiratory: no complaints Cardiovascular: no complaints Gastrointestinal: no complaints Exam/Review of Systems Vital Signs Vitals Vital Signs Date Time Temp Pulse Resp B/P Pulse Ox O2 Delivery O2 Flow Rate FiO2 07/16/16 11:27 98.7 78 18 139/65 99 07/16/16 10:51 65 07/12/16 19:22 Mechanical Ventilator Intake and Output 07/15/16 07/15/16 07/16/16 15:00 23:00 07:00 Intake Total 2300 ml 1500 ml Balance 2300 ml 1500 ml Exam Constitutional: alert, oriented Respiratory: clear to auscultation, normal air movement, other (Trach tube present and intact) Cardiovascular: nl pulses, regular rate and rhythm Gastrointestinal: nl liver, spleen, non-tender, other (Morbidly obese difficult to examine), soft Results Result Diagram: 07/16/1628 07/16/16 0628 Results 24 hrs Laboratory Tests Test 07/16/16 06:28 White Blood Count 6.5 Red Blood Count 3.33 L Hemoglobin 8.8 L Hematocrit 31.1 L Mean Corpuscular Volume 93.4 Mean Corpuscular Hemoglobin 26.4 L Mean Corpuscular Hemoglobin Concent 28.3 L Red Cell Distribution Width 18.2 H Platelet Count 199 Mean Platelet Volume 12.2 H Neutrophils % 68.3 Lymphocytes % 13.2 L Monocytes % 7.1 Eosinophils % 10.2 H Basophils % 0.6 Nucleated Red Blood Cells % 0.0 Neutrophils # 4.4 Lymphocytes # 0.9 Monocytes # 0.5 Eosinophils # 0.7 H Basophils # 0.0 Nucleated Red Blood Cells # 0.0 Sodium Level 142 Potassium Level 3.8 Chloride Level 95 L Carbon Dioxide Level 37 H Anion Gap 14 Blood Urea Nitrogen 21 H Creatinine 1.29 H Glucose Level 113 Calcium Level 8.5 Medications Medications Current Medications Amiodarone HCl (Cordarone) 200 mg BID GTB Last administered on 07/16/16 09:53; Admin Dose 200 MG; Start 07/11/16 at 21:00 Aspirin (Aspirin) 81 mg DAILY PO Last administered on 07/16/16 09:54; Admin Dose 81 MG; Start 07/12/16 at 09:00 Bisacodyl (Dulcolax) 5 mg DAILY PRN PO CONSTIPATION; Start 07/11/16 at 15:30 Diltiazem HCl (Cardizem Sr) 60 mg Q12 PO Last administered on 07/16/16 10:12; Admin Dose 60 MG; Start 07/11/16 at 21:00 Enoxaparin Sodium (Lovenox) 40 mg DAILY SC Last administered on 07/16/16 10:14 ; Admin Dose 40 MG; Start 07/12/16 at 09:00 Gabapentin (Neurontin) 300 mg TID GTB Last administered on 07/16/16 09:53; Admin Dose 300 MG; Start 07/11/16 at 21:00 Hydralazine HCl (Apresoline) 10 mg Q4 PRN PO ELEVATED BLOOD PRESSURE>150 Last administered on 07/15/16 13:04; Admin Dose 10 MG; Start 07/11/16 at 15:30 Lactulose (Enulose) 20 gm BID PRN PO CONSTIPATION; Start 07/11/16 at 15:30 Nystatin 1 applic DAILY TOP Last administered on 07/16/16 09:00; Admin Dose 1 APPLIC; Start 07/12/16 at 09:00 Olanzapine (Zyprexa) 5 mg DAILY GTB Last administered on 07/16/16 09:54; Admin Dose 5 MG; Start 07/12/16 at 09:00 Pantoprazole (Protonix Tab) 40 mg DAILY PO Last administered on 07/16/16 09:53 ; Admin Dose 40 MG; Start 07/12/16 at 09:00 Potassium Chloride (Klor-Con 20) 40 meq DAILY PO Last administered on 07/16/16 09:54; Admin Dose 40 MEQ; Start 07/12/16 at 09:00 Sertraline HCl (Zoloft) 100 mg DAILY GTB Last administered on 07/16/16 09:00; Admin Dose 100 MG; Start 07/12/16 at 09:00 Simethicone (Mylicon) 80 mg Q6H PRN PO DISTENSION/GAS/BLOATING; Start 07/11/16 at 15:30 Sucralfate (Carafate) 1 gm Q6 PO Last administered on 07/16/16 06:06; Admin Dose 1 GM; Start 07/11/16 at 18:00 Lorazepam (Ativan) 0.5 mg Q6H PRN IV ANXIETY; Start 07/11/16 at 15:30 Ondansetron HCl (Zofran Inj) 4 mg Q6H PRN IV NAUSEA AND/OR VOMITING; Start at 15:30 Nitroglycerin (Nitroglycerin (Sl Tab) 0.4 Mg) 1 tab Q5M PRN SL CHEST PAIN; Start 07/11/16 at 15:30 Acetaminophen (Tylenol Tab) 650 mg Q6H PRN PO PAIN LEVEL 1-3 OR FEVER; Start at 15:30 Acetaminophen (Tylenol Supp) 650 mg Q6H PRN [place] PAIN LEVEL 1-3 OR FEVER; Start 07/11/16 at 15:30 IV Flush (NS 10 ml) 10 ml PRN PRN IV IV PROTOCOL; Start 07/11/16 at 19:30 Docusate Sodium (Colace) 100 mg BID PO Last administered on 07/15/16 08:19; Admin Dose 100 MG; Start 07/14/16 at 14:00 Sodium Biphosphate/ Sodium Phosphate 133 ml 133 ml Q48H PRN [place] CONSTIPATION Last administered on 07/14/16 14:37; Admin Dose 133 ML; Start 07/14/16 at 14:00 Ertapenem/Sodium Chloride (Invanz/NS) 100 ml @ 200 mls/hr Q24H IVPB Last administered on 07/15/16 15:38; Admin Dose 200 MLS/HR; Start 07/14/16 at 16:00 Furosemide (Lasix) 40 mg DAILY PEG Last administered on 07/16/16 10:12; Admin Dose 40 MG; Start 07/16/16 at 09:00 MARKIE SOLOMON MD Jul 16, 2016 11:55
[2016-07-16] MEDS: ERTAPENEM SODIUM 1 GM in SOD CHLORIDE 0.9% 100 ML IVPB SCH (17:09)
--- NOTE | 2016-07-16 18:02 | CONS ---
Date/Time of Note Date/Time of Note DATE: 07/16/16 TIME: 18:01 Assessment/Plan Assessment/Plan Chief Complaint/Hosp Course Assessment: Acute on chronic hypoxic and hypercarbic respiratory failure, chronically ventilator dependent - from heart failure, possible pneumonia Acute on chronic diastolic heart failure - improved with diuresis Paroxysmal atrial fibrillation - currently sinus rhythm Chronic left bundle branch block Hypertension Morbid obesity Obstructive sleep apnea Urinary tract infection, ESBL E. coli - antibiotics per infectious disease Recommendations: -echocardiogram 03/31/2016 showed LVEF 55%, moderate LVH, mild diastolic dysfunction - will not repeat at this time -continue Lasix 40mg GT daily -continue aspirin 81mg daily -continue amiodarone 200mg BID and diltiazem 60mg BID Problems: Consultation Date/Type/Reason Admit Date/Time Jul 12, 2016 at 14:14 Initial Consult Date 07/13/16 Type of Consultation: Cardiology 24 HR Interval Summary Free Text/Dictation No acute events. Detailed Summary Additional Comments 14 point review of systems without changes. Exam/Review of Systems Vital Signs Vitals Vital Signs Date Time Temp Pulse Resp B/P Pulse Ox O2 Delivery O2 Flow Rate FiO2 07/16/16 17:14 77 28 94 60 07/16/16 14:57 98.2 129/60 07/12/16 19:22 Mechanical Ventilator Intake and Output 07/15/16 07/15/16 07/16/16 15:00 23:00 07:00 Intake Total 2300 ml 1500 ml Balance 2300 ml 1500 ml Exam Constitutional: alert, obese (morbidly) Psych: no complaints Head: atraumatic, normocephalic Eyes: nl conjunctiva, nl lids ENMT: nl external ears & nose, nl nasal mucosa & septum Neck: other (tracheostomy), supple Respiratory: diminished breath sounds Cardiovascular: regular rate and rhythm Gastrointestinal: non-tender, soft Extremities: edema, No clubbing, No cyanosis Results Result Diagram: 07/16/16 0628 07/16/16 0628 Results 24 hrs Laboratory Tests Test 07/16/16 06:28 White Blood Count 6.5 Red Blood Count 3.33 L Hemoglobin 8.8 L Hematocrit 31.1 L Mean Corpuscular Volume 93.4 Mean Corpuscular Hemoglobin 26.4 L Mean Corpuscular Hemoglobin Concent 28.3 L Red Cell Distribution Width 18.2 H Platelet Count 199 Mean Platelet Volume 12.2 H Neutrophils % 68.3 Lymphocytes % 13.2 L Monocytes % 7.1 Eosinophils % 10.2 H Basophils % 0.6 Nucleated Red Blood Cells % 0.0 Neutrophils # 4.4 Lymphocytes # 0.9 Monocytes # 0.5 Eosinophils # 0.7 H Basophils # 0.0 Nucleated Red Blood Cells # 0.0 Sodium Level 142 Potassium Level 3.8 Chloride Level 95 L Carbon Dioxide Level 37 H Anion Gap 14 Blood Urea Nitrogen 21 H Creatinine 1.29 H Glucose Level 113 Calcium Level 8.5 Medications Medications Current Medications Amiodarone HCl (Cordarone) 200 mg BID GTB Last administered on 07/16/16 09:53; Admin Dose 200 MG; Start 07/11/16 at 21:00 Aspirin (Aspirin) 81 mg DAILY PO Last administered on 07/16/16 09:54; Admin Dose 81 MG; Start 07/12/16 at 09:00 Bisacodyl (Dulcolax) 5 mg DAILY PRN PO CONSTIPATION; Start 07/11/16 at 15:30 Diltiazem HCl (Cardizem Sr) 60 mg Q12 PO Last administered on 07/16/16 10:12; Admin Dose 60 MG; Start 07/11/16 at 21:00 Enoxaparin Sodium (Lovenox) 40 mg DAILY SC Last administered on 07/16/16 10:14 ; Admin Dose 40 MG; Start 07/12/16 at 09:00 Gabapentin (Neurontin) 300 mg TID GTB Last administered on 07/16/16 13:19; Admin Dose 300 MG; Start 07/11/16 at 21:00 Hydralazine HCl (Apresoline) 10 mg Q4 PRN PO ELEVATED BLOOD PRESSURE>150 Last administered on 07/15/16 13:04; Admin Dose 10 MG; Start 07/11/16 at 15:30 Lactulose (Enulose) 20 gm BID PRN PO CONSTIPATION; Start 07/11/16 at 15:30 Nystatin 1 applic DAILY TOP Last administered on 07/16/16 09:00; Admin Dose 1 APPLIC; Start 07/12/16 at 09:00 Olanzapine (Zyprexa) 5 mg DAILY GTB Last administered on 07/16/16 09:54; Admin Dose 5 MG; Start 07/12/16 at 09:00 Pantoprazole (Protonix Tab) 40 mg DAILY PO Last administered on 07/16/16 09:53 ; Admin Dose 40 MG; Start 07/12/16 at 09:00 Potassium Chloride (Klor-Con 20) 40 meq DAILY PO Last administered on 07/16/16 09:54; Admin Dose 40 MEQ; Start 07/12/16 at 09:00 Sertraline HCl (Zoloft) 100 mg DAILY GTB Last administered on 07/16/16 09:00; Admin Dose 100 MG; Start 07/12/16 at 09:00 Simethicone (Mylicon) 80 mg Q6H PRN PO DISTENSION/GAS/BLOATING; Start 07/11/16 at 15:30 Sucralfate (Carafate) 1 gm Q6 PO Last administered on 07/16/16 17:10; Admin Dose 1 GM; Start 07/11/16 at 18:00 Lorazepam (Ativan) 0.5 mg Q6H PRN IV ANXIETY; Start 07/11/16 at 15:30 Ondansetron HCl (Zofran Inj) 4 mg Q6H PRN IV NAUSEA AND/OR VOMITING; Start at 15:30 Nitroglycerin (Nitroglycerin (Sl Tab) 0.4 Mg) 1 tab Q5M PRN SL CHEST PAIN; Start 07/11/16 at 15:30 Acetaminophen (Tylenol Tab) 650 mg Q6H PRN PO PAIN LEVEL 1-3 OR FEVER; Start at 15:30 Acetaminophen (Tylenol Supp) 650 mg Q6H PRN [place] PAIN LEVEL 1-3 OR FEVER; Start 07/11/16 at 15:30 IV Flush (NS 10 ml) 10 ml PRN PRN IV IV PROTOCOL; Start 07/11/16 at 19:30 Docusate Sodium (Colace) 100 mg BID PO Last administered on 07/15/16 08:19; Admin Dose 100 MG; Start 07/14/16 at 14:00 Sodium Biphosphate/ Sodium Phosphate 133 ml 133 ml Q48H PRN [place] CONSTIPATION Last administered on 07/14/16 14:37; Admin Dose 133 ML; Start 07/14/16 at 14:00 Ertapenem/Sodium Chloride (Invanz/NS) 100 ml @ 200 mls/hr Q24H IVPB Last administered on 07/16/16 17:09; Admin Dose 200 MLS/HR; Start 07/14/16 at 16:00 Furosemide (Lasix) 40 mg DAILY PEG Last administered on 07/16/16 10:12; Admin Dose 40 MG; Start 07/16/16 at 09:00 RENAE SKY MD Jul 16, 2016 18:02
--- NOTE | 2016-07-16 19:08 | CONS ---
Date/Time of Note Date/Time of Note DATE: 07/16/16 TIME: 19:07 Consult Date/Type/Reason Admit Date/Time Jul 12, 2016 at 14:14 Initial Consult Date 07/13/16 Type of Consultation: Cardiology Subjective No events. Remains on vent. Objective Vital Signs Date Time Temp Pulse Resp B/P Pulse Ox O2 Delivery O2 Flow Rate FiO2 07/16/16 17:14 77 28 94 60 07/16/16 14:57 98.2 129/60 07/12/16 19:22 Mechanical Ventilator Intake and Output 07/15/16 07/15/16 07/16/16 15:00 23:00 07:00 Intake Total 2300 ml 1500 ml Balance 2300 ml 1500 ml Exam NECK: Supple. No JVD, lymphadenopathy. Trach site clean, intact. CARDIAC: S1, S2. Distant heart sounds. CHEST: Diminished air entry bilaterally. ABDOMEN: Obese morbidly. Soft, nontender. No guarding or rebound. EXTREMITIES: No cyanosis, clubbing. 1+ edema. Results/Medications Result Diagram: 07/16/1628 07/16/16 0628 Results 24 hrs Laboratory Tests Test 07/16/16 06:28 White Blood Count 6.5 Red Blood Count 3.33 L Hemoglobin 8.8 L Hematocrit 31.1 L Mean Corpuscular Volume 93.4 Mean Corpuscular Hemoglobin 26.4 L Mean Corpuscular Hemoglobin Concent 28.3 L Red Cell Distribution Width 18.2 H Platelet Count 199 Mean Platelet Volume 12.2 H Neutrophils % 68.3 Lymphocytes % 13.2 L Monocytes % 7.1 Eosinophils % 10.2 H Basophils % 0.6 Nucleated Red Blood Cells % 0.0 Neutrophils # 4.4 Lymphocytes # 0.9 Monocytes # 0.5 Eosinophils # 0.7 H Basophils # 0.0 Nucleated Red Blood Cells # 0.0 Sodium Level 142 Potassium Level 3.8 Chloride Level 95 L Carbon Dioxide Level 37 H Anion Gap 14 Blood Urea Nitrogen 21 H Creatinine 1.29 H Glucose Level 113 Calcium Level 8.5 Medications Current Medications Amiodarone HCl (Cordarone) 200 mg BID GTB Last administered on 07/16/16 09:53; Admin Dose 200 MG; Start 07/11/16 at 21:00 Aspirin (Aspirin) 81 mg DAILY PO Last administered on 07/16/16 09:54; Admin Dose 81 MG; Start 07/12/16 at 09:00 Bisacodyl (Dulcolax) 5 mg DAILY PRN PO CONSTIPATION; Start 07/11/16 at 15:30 Diltiazem HCl (Cardizem Sr) 60 mg Q12 PO Last administered on 07/16/16 10:12; Admin Dose 60 MG; Start 07/11/16 at 21:00 Enoxaparin Sodium (Lovenox) 40 mg DAILY SC Last administered on 07/16/16 10:14 ; Admin Dose 40 MG; Start 07/12/16 at 09:00 Gabapentin (Neurontin) 300 mg TID GTB Last administered on 07/16/16 13:19; Admin Dose 300 MG; Start 07/11/16 at 21:00 Hydralazine HCl (Apresoline) 10 mg Q4 PRN PO ELEVATED BLOOD PRESSURE>150 Last administered on 07/15/16 13:04; Admin Dose 10 MG; Start 07/11/16 at 15:30 Lactulose (Enulose) 20 gm BID PRN PO CONSTIPATION; Start 07/11/16 at 15:30 Nystatin 1 applic DAILY TOP Last administered on 07/16/16 09:00; Admin Dose 1 APPLIC; Start 07/12/16 at 09:00 Olanzapine (Zyprexa) 5 mg DAILY GTB Last administered on 07/16/16 09:54; Admin Dose 5 MG; Start 07/12/16 at 09:00 Pantoprazole (Protonix Tab) 40 mg DAILY PO Last administered on 07/16/16 09:53 ; Admin Dose 40 MG; Start 07/12/16 at 09:00 Potassium Chloride (Klor-Con 20) 40 meq DAILY PO Last administered on 07/16/16 09:54; Admin Dose 40 MEQ; Start 07/12/16 at 09:00 Sertraline HCl (Zoloft) 100 mg DAILY GTB Last administered on 07/16/16 09:00; Admin Dose 100 MG; Start 07/12/16 at 09:00 Simethicone (Mylicon) 80 mg Q6H PRN PO DISTENSION/GAS/BLOATING; Start 07/11/16 at 15:30 Sucralfate (Carafate) 1 gm Q6 PO Last administered on 07/16/16 17:10; Admin Dose 1 GM; Start 07/11/16 at 18:00 Lorazepam (Ativan) 0.5 mg Q6H PRN IV ANXIETY; Start 07/11/16 at 15:30 Ondansetron HCl (Zofran Inj) 4 mg Q6H PRN IV NAUSEA AND/OR VOMITING; Start at 15:30 Nitroglycerin (Nitroglycerin (Sl Tab) 0.4 Mg) 1 tab Q5M PRN SL CHEST PAIN; Start 07/11/16 at 15:30 Acetaminophen (Tylenol Tab) 650 mg Q6H PRN PO PAIN LEVEL 1-3 OR FEVER; Start at 15:30 Acetaminophen (Tylenol Supp) 650 mg Q6H PRN [place] PAIN LEVEL 1-3 OR FEVER; Start 07/11/16 at 15:30 IV Flush (NS 10 ml) 10 ml PRN PRN IV IV PROTOCOL; Start 07/11/16 at 19:30 Docusate Sodium (Colace) 100 mg BID PO Last administered on 07/15/16 08:19; Admin Dose 100 MG; Start 07/14/16 at 14:00 Sodium Biphosphate/ Sodium Phosphate 133 ml 133 ml Q48H PRN [place] CONSTIPATION Last administered on 07/14/16 14:37; Admin Dose 133 ML; Start 07/14/16 at 14:00 Ertapenem/Sodium Chloride (Invanz/NS) 100 ml @ 200 mls/hr Q24H IVPB Last administered on 07/16/16 17:09; Admin Dose 200 MLS/HR; Start 07/14/16 at 16:00 Furosemide (Lasix) 40 mg DAILY PEG Last administered on 07/16/16 10:12; Admin Dose 40 MG; Start 07/16/16 at 09:00 Assessment/Plan Additional Assessment/Plan IMP: 1. Ventilator-dependent respiratory failure. 2. ESBL UTI sensitive to Zosyn 3. Morbid obesity. 4. Acute on chronic hypercapnic respiratory failure and hypoxic respiratory failure. 5. L pleural effusion. 6. Anemia likely of chronic disease status post transfusion 1 unit packed red blood cells RECS: 1. Continued mechanical ventilation. 2. Abx per ID 3. Am DIO MARTEL MD Jul 16, 2016 19:08
--- NOTE | 2016-07-16 20:11 | CONS ---
Date/Time of Note Date/Time of Note DATE: 07/16/16 TIME: 20:09 Assessment/Plan Assessment/Plan Chief Complaint/Hosp Course SUBJECTIVE: No events overnight. Patient is alert. Denies pain. No fevers. MICROBIOLOGY: Urine culture growing E. coli ESBL. ANTIMICROBIALS: Invanz INDWELLINGS: Trach. PICC line placed on 07/11/2016. PHYSICAL EXAMINATION: GENERAL: This is a morbidly obese, elderly man, who is alert, in no distress. HEENT: Head atraumatic, normocephalic. Sclerae anicteric. Buccal mucosa dry. NECK: Supple, tracheostomy present. CHEST: Chest rise is symmetrical. Breath sounds diminished. HEART: S1, S2. ABDOMEN: Obese. Soft. Bowel tones hypoactive. EXTREMITIES: With bilateral edema. ASSESSMENT: 1. Systemic inflammatory response syndrome. 2. Escherichia coli extended-spectrum beta-lactamase urinary tract infection. 3. Morbid obesity. 4. Chronic respiratory failure. 5. Coronary artery disease, with a history of permanent pacemaker placement. PLAN: Remains stable. Continue present care, complete abx for 5 more days. DW staff Problems: Consultation Date/Type/Reason Admit Date/Time Jul 12, 2016 at 14:14 Initial Consult Date 07/13/16 Type of Consultation: ID Exam/Review of Systems Vital Signs Vitals Vital Signs Date Time Temp Pulse Resp B/P Pulse Ox O2 Delivery O2 Flow Rate FiO2 07/16/16 19:56 69 24 93 60 07/16/16 19:53 97.9 134/63 07/12/16 19:22 Mechanical Ventilator Intake and Output 07/15/16 07/15/16 07/16/16 15:00 23:00 07:00 Intake Total 2300 ml 1500 ml Balance 2300 ml 1500 ml Results Result Diagram: 07/16/16 0628 07/16/16 0628 Results 24 hrs Laboratory Tests Test 07/16/16 06:28 White Blood Count 6.5 Red Blood Count 3.33 L Hemoglobin 8.8 L Hematocrit 31.1 L Mean Corpuscular Volume 93.4 Mean Corpuscular Hemoglobin 26.4 L Mean Corpuscular Hemoglobin Concent 28.3 L Red Cell Distribution Width 18.2 H Platelet Count 199 Mean Platelet Volume 12.2 H Neutrophils % 68.3 Lymphocytes % 13.2 L Monocytes % 7.1 Eosinophils % 10.2 H Basophils % 0.6 Nucleated Red Blood Cells % 0.0 Neutrophils # 4.4 Lymphocytes # 0.9 Monocytes # 0.5 Eosinophils # 0.7 H Basophils # 0.0 Nucleated Red Blood Cells # 0.0 Sodium Level 142 Potassium Level 3.8 Chloride Level 95 L Carbon Dioxide Level 37 H Anion Gap 14 Blood Urea Nitrogen 21 H Creatinine 1.29 H Glucose Level 113 Calcium Level 8.5 Medications Medications Current Medications Amiodarone HCl (Cordarone) 200 mg BID GTB Last administered on 07/16/16 09:53; Admin Dose 200 MG; Start 07/11/16 at 21:00 Aspirin (Aspirin) 81 mg DAILY PO Last administered on 07/16/16 09:54; Admin Dose 81 MG; Start 07/12/16 at 09:00 Bisacodyl (Dulcolax) 5 mg DAILY PRN PO CONSTIPATION; Start 07/11/16 at 15:30 Diltiazem HCl (Cardizem Sr) 60 mg Q12 PO Last administered on 07/16/16 10:12; Admin Dose 60 MG; Start 07/11/16 at 21:00 Enoxaparin Sodium (Lovenox) 40 mg DAILY SC Last administered on 07/16/16 10:14 ; Admin Dose 40 MG; Start 07/12/16 at 09:00 Gabapentin (Neurontin) 300 mg TID GTB Last administered on 07/16/16 13:19; Admin Dose 300 MG; Start 07/11/16 at 21:00 Hydralazine HCl (Apresoline) 10 mg Q4 PRN PO ELEVATED BLOOD PRESSURE>150 Last administered on 07/15/16 13:04; Admin Dose 10 MG; Start 07/11/16 at 15:30 Lactulose (Enulose) 20 gm BID PRN PO CONSTIPATION; Start 07/11/16 at 15:30 Nystatin 1 applic DAILY TOP Last administered on 07/16/16 09:00; Admin Dose 1 APPLIC; Start 07/12/16 at 09:00 Olanzapine (Zyprexa) 5 mg DAILY GTB Last administered on 07/16/16 09:54; Admin Dose 5 MG; Start 07/12/16 at 09:00 Pantoprazole (Protonix Tab) 40 mg DAILY PO Last administered on 07/16/16 09:53 ; Admin Dose 40 MG; Start 07/12/16 at 09:00 Potassium Chloride (Klor-Con 20) 40 meq DAILY PO Last administered on 07/16/16 09:54; Admin Dose 40 MEQ; Start 07/12/16 at 09:00 Sertraline HCl (Zoloft) 100 mg DAILY GTB Last administered on 07/16/16 09:00; Admin Dose 100 MG; Start 07/12/16 at 09:00 Simethicone (Mylicon) 80 mg Q6H PRN PO DISTENSION/GAS/BLOATING; Start 07/11/16 at 15:30 Sucralfate (Carafate) 1 gm Q6 PO Last administered on 07/16/16 17:10; Admin Dose 1 GM; Start 07/11/16 at 18:00 Lorazepam (Ativan) 0.5 mg Q6H PRN IV ANXIETY; Start 07/11/16 at 15:30 Ondansetron HCl (Zofran Inj) 4 mg Q6H PRN IV NAUSEA AND/OR VOMITING; Start at 15:30 Nitroglycerin (Nitroglycerin (Sl Tab) 0.4 Mg) 1 tab Q5M PRN SL CHEST PAIN; Start 07/11/16 at 15:30 Acetaminophen (Tylenol Tab) 650 mg Q6H PRN PO PAIN LEVEL 1-3 OR FEVER; Start at 15:30 Acetaminophen (Tylenol Supp) 650 mg Q6H PRN [place] PAIN LEVEL 1-3 OR FEVER; Start 07/11/16 at 15:30 IV Flush (NS 10 ml) 10 ml PRN PRN IV IV PROTOCOL; Start 07/11/16 at 19:30 Docusate Sodium (Colace) 100 mg BID PO Last administered on 07/15/16 08:19; Admin Dose 100 MG; Start 07/14/16 at 14:00 Sodium Biphosphate/ Sodium Phosphate 133 ml 133 ml Q48H PRN [place] CONSTIPATION Last administered on 07/14/16 14:37; Admin Dose 133 ML; Start 07/14/16 at 14:00 Ertapenem/Sodium Chloride (Invanz/NS) 100 ml @ 200 mls/hr Q24H IVPB Last administered on 07/16/16 17:09; Admin Dose 200 MLS/HR; Start 07/14/16 at 16:00 Furosemide (Lasix) 40 mg DAILY PEG Last administered on 07/16/16t 10:12; Admin Dose 40 MG; Start 07/16/16 at 09:00 KATI AKHTAR NP Jul 16, 2016 20:11
[2016-07-17] VITALS (16 sets, daily range): BP systolic 120–145; BP diastolic 58–78; RESP 17–62
[2016-07-17] MEDS ORDERED: VITAMIN A & D 5 GM OINT PACKET TOP ONE ×2 (00:24→03:50)
[2016-07-17] MEDS: NA PHOSPHATE/BIPHOS 133 ML ENEMA PR PRN (03:08)
[2016-07-17] MEDS: SUCRALFATE 1 GM TAB PO SCH ×5 (06:00→23:32)
[2016-07-17] MEDS: DOCUSATE SODIUM 100 MG CAP PO SCH ×2 (09:00→22:01)
[2016-07-17] MEDS: ALBUTEROL HFA 8 GM INHALER INH SCH ×2 (09:45→20:08)
[2016-07-17] MEDS: PANTOPRAZOLE (EC) 40 MG TAB PO SCH (09:53)
[2016-07-17] MEDS: FUROSEMIDE 40 MG/4 ML CUP PEG SCH (09:53)
[2016-07-17] MEDS: ASPIRIN 81 MG TAB PO SCH (09:54)
[2016-07-17] MEDS: OLANZAPINE 5 MG TAB GTB SCH (09:54)
[2016-07-17] MEDS: GABAPENTIN 300 MG CAP GTB SCH ×3 (09:54→22:01)
[2016-07-17] MEDS: AMIODARONE 200 MG TAB GTB SCH ×2 (09:54→22:01)
[2016-07-17] MEDS: DILTIAZEM (SR) 60 MG CAP PO SCH ×2 (09:55→22:01)
[2016-07-17] MEDS: SERTRALINE 100 MG TAB GTB SCH (09:56)
[2016-07-17] MEDS: POTASSIUM CHLORIDE (SR) 20 MEQ TAB PO SCH (09:56)
[2016-07-17] MEDS: NYSTATIN 15 GM POWDER BTL TOP SCH (09:56)
[2016-07-17] MEDS: ENOXAPARIN 40 MG/0.4 ML SYG SC SCH (10:01)
--- NOTE | 2016-07-17 10:16 | PN ---
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 Qualifiers: Obesity type: with alveolar hypoventilation Qualified Code: E66.2 - Morbid obesity with alveolar hypoventilation (2) UTI (urinary tract infection) Status: Acute Comment: ESBL. Need directive from infectious disease in their progress note about whether or not he is a communicable disease risk to be able to send him back to his congregate living facility Qualifiers: Urinary tract infection type: acute cystitis Hematuria presence: without hematuria Qualified Code: N30.00 - Acute cystitis without hematuria (3) Acute and chronic respiratory failure Status: Acute Comment: Remains on ventilator support (4) Pickwickian syndrome Status: Acute Comment: As above Subjective 24 Hr Interval Summary Free Text/Dictation Morbidly obese male with a trach and ventilator lying in bed. Exam/Review of Systems Vital Signs Vitals Vital Signs Date Time Temp Pulse Resp B/P Pulse Ox O2 Delivery O2 Flow Rate FiO2 07/17/16 09:45 74 32 95 60 07/17/16 04:40 98.2 130/64 Intake and Output 07/16/16 07/16/16 07/17/16 15:00 23:00 07:00 Intake Total 850 ml 200 ml Balance 850 ml 200 ml Exam Constitutional: alert, oriented Neck: non-tender, supple Respiratory: clear to auscultation, normal air movement Results Result Diagram: 07/16/1628 07/16/16627 Medications Medications Current Medications Amiodarone HCl (Cordarone) 200 mg BID GTB Last administered on 07/17/16 09:54; Admin Dose 200 MG; Start 07/11/16 at 21:00 Aspirin (Aspirin) 81 mg DAILY PO Last administered on 07/17/16 09:54; Admin Dose 81 MG; Start 07/12/16 at 09:00 Bisacodyl (Dulcolax) 5 mg DAILY PRN PO CONSTIPATION; Start 07/11/16 at 15:30 Diltiazem HCl (Cardizem Sr) 60 mg Q12 PO Last administered on 07/17/16 09:55; Admin Dose 60 MG; Start 07/11/16 at 21:00 Enoxaparin Sodium (Lovenox) 40 mg DAILY SC Last administered on 07/17/16 10:01 ; Admin Dose 40 MG; Start 07/12/16 at 09:00 Gabapentin (Neurontin) 300 mg TID GTB Last administered on 07/17/16 09:54; Admin Dose 300 MG; Start 07/11/16 at 21:00 Hydralazine HCl (Apresoline) 10 mg Q4 PRN PO ELEVATED BLOOD PRESSURE>150 Last administered on 07/15/16 13:04; Admin Dose 10 MG; Start 07/11/16 at 15:30 Lactulose (Enulose) 20 gm BID PRN PO CONSTIPATION; Start 07/11/16 at 15:30 Nystatin 1 applic DAILY TOP Last administered on 07/17/16 09:56; Admin Dose 1 APPLIC; Start 07/12/16 at 09:00 Olanzapine (Zyprexa) 5 mg DAILY GTB Last administered on 07/17/16 09:54; Admin Dose 5 MG; Start 07/12/16 at 09:00 Pantoprazole (Protonix Tab) 40 mg DAILY PO Last administered on 07/17/16 09:53 ; Admin Dose 40 MG; Start 07/12/16 at 09:00 Potassium Chloride (Klor-Con 20) 40 meq DAILY PO Last administered on 07/17/16 09:56; Admin Dose 40 MEQ; Start 07/12/16 at 09:00 Sertraline HCl (Zoloft) 100 mg DAILY GTB Last administered on 07/17/16 09:56; Admin Dose 100 MG; Start 07/12/16 at 09:00 Simethicone (Mylicon) 80 mg Q6H PRN PO DISTENSION/GAS/BLOATING; Start 07/11/16 at 15:30 Sucralfate (Carafate) 1 gm Q6 PO Last administered on 07/16/16 17:10; Admin Dose 1 GM; Start 07/11/16 at 18:00 Lorazepam (Ativan) 0.5 mg Q6H PRN IV ANXIETY; Start 07/11/16 at 15:30 Ondansetron HCl (Zofran Inj) 4 mg Q6H PRN IV NAUSEA AND/OR VOMITING; Start at 15:30 Nitroglycerin (Nitroglycerin (Sl Tab) 0.4 Mg) 1 tab Q5M PRN SL CHEST PAIN; Start 07/11/16 at 15:30 Acetaminophen (Tylenol Tab) 650 mg Q6H PRN PO PAIN LEVEL 1-3 OR FEVER; Start at 15:30 Acetaminophen (Tylenol Supp) 650 mg Q6H PRN [place] PAIN LEVEL 1-3 OR FEVER; Start 07/11/16 at 15:30 IV Flush (NS 10 ml) 10 ml PRN PRN IV IV PROTOCOL; Start 07/11/16 at 19:30 Docusate Sodium (Colace) 100 mg BID PO Last administered on 07/16/16 21:43; Admin Dose 100 MG; Start 07/14/16 at 14:00 Sodium Biphosphate/ Sodium Phosphate 133 ml 133 ml Q48H PRN [place] CONSTIPATION Last administered on 07/17/16 03:08; Admin Dose 133 ML; Start 07/14/16 at 14:00 Ertapenem/Sodium Chloride (Invanz/NS) 100 ml @ 200 mls/hr Q24H IVPB Last administered on 07/16/16 17:09; Admin Dose 200 MLS/HR; Start 07/14/16 at 16:00 Furosemide (Lasix) 40 mg DAILY PEG Last administered on 07/17/16 09:53; Admin Dose 40 MG; Start 07/16/16 at 09:00 MARKIE SOLOMON MD Jul 17, 2016 10:16
[2016-07-17] MEDS: traMADol 50 MG TAB PO PRN ×2 (16:19→22:01)
[2016-07-17] MEDS: ERTAPENEM SODIUM 1 GM in SOD CHLORIDE 0.9% 100 ML IVPB SCH (16:28)
--- NOTE | 2016-07-17 16:40 | CONS ---
Date/Time of Note Date/Time of Note DATE: 07/17/16 TIME: 16:39 Consult Date/Type/Reason Admit Date/Time Jul 12, 2016 at 14:14 Initial Consult Date 07/13/16 Type of Consultation: pulm Subjective On vent. No new events. Objective Vital Signs Date Time Temp Pulse Resp B/P Pulse Ox O2 Delivery O2 Flow Rate FiO2 07/17/16 15:37 74 31 94 60 07/17/16 15:30 98.1 124/58 Intake and Output 07/16/16 07/16/16 07/17/16 15:00 23:00 07:00 Intake Total 850 ml 200 ml Balance 850 ml 200 ml Exam NECK: Supple. No JVD, lymphadenopathy. Trach site clean, intact. CARDIAC: S1, S2. Distant heart sounds. CHEST: Diminished air entry bilaterally. ABDOMEN: Obese morbidly. Soft, nontender. No guarding or rebound. EXTREMITIES: No cyanosis, clubbing. 1+ edema. Results/Medications Result Diagram: 07/16/1662707/16/16627 Medications Current Medications Amiodarone HCl (Cordarone) 200 mg BID GTB Last administered on 07/17/16 09:54; Admin Dose 200 MG; Start 07/11/16 at 21:00 Aspirin (Aspirin) 81 mg DAILY PO Last administered on 07/17/16 09:54; Admin Dose 81 MG; Start 07/12/16 at 09:00 Bisacodyl (Dulcolax) 5 mg DAILY PRN PO CONSTIPATION; Start 07/11/16 at 15:30 Diltiazem HCl (Cardizem Sr) 60 mg Q12 PO Last administered on 07/17/16 09:55; Admin Dose 60 MG; Start 07/11/16 at 21:00 Enoxaparin Sodium (Lovenox) 40 mg DAILY SC Last administered on 07/17/16 10:01 ; Admin Dose 40 MG; Start 07/12/16 at 09:00 Gabapentin (Neurontin) 300 mg TID GTB Last administered on 07/17/16 13:19; Admin Dose 300 MG; Start 07/11/16 at 21:00 Hydralazine HCl (Apresoline) 10 mg Q4 PRN PO ELEVATED BLOOD PRESSURE>150 Last administered on 07/15/16 13:04; Admin Dose 10 MG; Start 07/11/16 at 15:30 Lactulose (Enulose) 20 gm BID PRN PO CONSTIPATION; Start 07/11/16 at 15:30 Nystatin 1 applic DAILY TOP Last administered on 07/17/16 09:56; Admin Dose 1 APPLIC; Start 07/12/16 at 09:00 Olanzapine (Zyprexa) 5 mg DAILY GTB Last administered on 07/17/16 09:54; Admin Dose 5 MG; Start 07/12/16 at 09:00 Pantoprazole (Protonix Tab) 40 mg DAILY PO Last administered on 07/17/16 09:53 ; Admin Dose 40 MG; Start 07/12/16 at 09:00 Potassium Chloride (Klor-Con 20) 40 meq DAILY PO Last administered on 07/17/16 09:56; Admin Dose 40 MEQ; Start 07/12/16 at 09:00 Sertraline HCl (Zoloft) 100 mg DAILY GTB Last administered on 07/17/16 09:56; Admin Dose 100 MG; Start 07/12/16 at 09:00 Simethicone (Mylicon) 80 mg Q6H PRN PO DISTENSION/GAS/BLOATING; Start 07/11/16 at 15:30 Sucralfate (Carafate) 1 gm Q6 PO Last administered on 07/17/16 11:09; Admin Dose 1 GM; Start 07/11/16 at 18:00 Lorazepam (Ativan) 0.5 mg Q6H PRN IV ANXIETY; Start 07/11/16 at 15:30 Ondansetron HCl (Zofran Inj) 4 mg Q6H PRN IV NAUSEA AND/OR VOMITING; Start at 15:30 Nitroglycerin (Nitroglycerin (Sl Tab) 0.4 Mg) 1 tab Q5M PRN SL CHEST PAIN; Start 07/11/16 at 15:30 Acetaminophen (Tylenol Tab) 650 mg Q6H PRN PO PAIN LEVEL 1-3 OR FEVER; Start at 15:30 Acetaminophen (Tylenol Supp) 650 mg Q6H PRN [place] PAIN LEVEL 1-3 OR FEVER; Start 07/11/16 at 15:30 IV Flush (NS 10 ml) 10 ml PRN PRN IV IV PROTOCOL; Start 07/11/16 at 19:30 Docusate Sodium (Colace) 100 mg BID PO Last administered on 07/16/16 21:43; Admin Dose 100 MG; Start 07/14/16 at 14:00 Sodium Biphosphate/ Sodium Phosphate 133 ml 133 ml Q48H PRN [place] CONSTIPATION Last administered on 07/17/16 03:08; Admin Dose 133 ML; Start 07/14/16 at 14:00 Ertapenem/Sodium Chloride (Invanz/NS) 100 ml @ 200 mls/hr Q24H IVPB Last administered on 07/17/16 16:28; Admin Dose 200 MLS/HR; Start 07/14/16 at 16:00 Furosemide (Lasix) 40 mg DAILY PEG Last administered on 07/17/16 09:53; Admin Dose 40 MG; Start 07/16/16 at 09:00 Assessment/Plan Additional Assessment/Plan IMP: 1. Ventilator-dependent respiratory failure. 2. ESBL UTI sensitive to Zosyn 3. Morbid obesity. 4. Acute on chronic hypercapnic respiratory failure and hypoxic respiratory failure. 5. L pleural effusion. 6. Anemia likely of chronic disease status post transfusion 1 unit packed red blood cells RECS: 1. Continued mechanical ventilation. 2. Abx per ID 3. Am ABG/CXR DIO DENISE MD Jul 17, 2016 16:40
--- NOTE | 2016-07-17 17:58 | CONS ---
Date/Time of Note Date/Time of Note DATE: 07/17/16 TIME: 17:58 Assessment/Plan Assessment/Plan Chief Complaint/Hosp Course SUBJECTIVE: No events overnight. Patient is alert. Denies pain. No fevers. MICROBIOLOGY: Urine culture growing E. coli ESBL. ANTIMICROBIALS: Invanz INDWELLINGS: Trach. PICC line placed on 07/11/2016. PHYSICAL EXAMINATION: GENERAL: This is a morbidly obese, elderly man, who is alert, in no distress. HEENT: Head atraumatic, normocephalic. Sclerae anicteric. Buccal mucosa dry. NECK: Supple, tracheostomy present. CHEST: Chest rise is symmetrical. Breath sounds diminished. HEART: S1, S2. ABDOMEN: Obese. Soft. Bowel tones hypoactive. EXTREMITIES: With bilateral edema. ASSESSMENT: 1. Systemic inflammatory response syndrome. 2. Escherichia coli extended-spectrum beta-lactamase urinary tract infection. 3. Morbid obesity. 4. Chronic respiratory failure. 5. Coronary artery disease, with a history of permanent pacemaker placement. PLAN: Remains stable. Continue present care, complete abx for 4 more days. DW staff Problems: Consultation Date/Type/Reason Admit Date/Time Jul 12, 2016 at 14:14 Initial Consult Date 07/13/16 Type of Consultation: id Exam/Review of Systems Vital Signs Vitals Vital Signs Date Time Temp Pulse Resp B/P Pulse Ox O2 Delivery O2 Flow Rate FiO2 07/17/16 15:37 74 31 94 60 07/17/16 15:30 98.1 124/58 Intake and Output 07/16/16 07/16/16 07/17/16 15:00 23:00 07:00 Intake Total 850 ml 200 ml Balance 850 ml 200 ml Results Result Diagram: 07/16/1628 07/16/1628 Medications Medications Current Medications Amiodarone HCl (Cordarone) 200 mg BID GTB Last administered on 07/17/16 09:54; Admin Dose 200 MG; Start 07/11/16 at 21:00 Aspirin (Aspirin) 81 mg DAILY PO Last administered on 07/17/16 09:54; Admin Dose 81 MG; Start 07/12/16 at 09:00 Bisacodyl (Dulcolax) 5 mg DAILY PRN PO CONSTIPATION; Start 07/11/16 at 15:30 Diltiazem HCl (Cardizem Sr) 60 mg Q12 PO Last administered on 07/17/16 09:55; Admin Dose 60 MG; Start 07/11/16 at 21:00 Enoxaparin Sodium (Lovenox) 40 mg DAILY SC Last administered on 07/17/16 10:01 ; Admin Dose 40 MG; Start 07/12/16 at 09:00 Gabapentin (Neurontin) 300 mg TID GTB Last administered on 07/17/16 13:19; Admin Dose 300 MG; Start 07/11/16 at 21:00 Hydralazine HCl (Apresoline) 10 mg Q4 PRN PO ELEVATED BLOOD PRESSURE>150 Last administered on 07/15/16 13:04; Admin Dose 10 MG; Start 07/11/16 at 15:30 Lactulose (Enulose) 20 gm BID PRN PO CONSTIPATION; Start 07/11/16 at 15:30 Nystatin 1 applic DAILY TOP Last administered on 07/17/16 09:56; Admin Dose 1 APPLIC; Start 07/12/16 at 09:00 Olanzapine (Zyprexa) 5 mg DAILY GTB Last administered on 07/17/16 09:54; Admin Dose 5 MG; Start 07/12/16 at 09:00 Pantoprazole (Protonix Tab) 40 mg DAILY PO Last administered on 07/17/16 09:53 ; Admin Dose 40 MG; Start 07/12/16 at 09:00 Potassium Chloride (Klor-Con 20) 40 meq DAILY PO Last administered on 07/17/16 09:56; Admin Dose 40 MEQ; Start 07/12/16 at 09:00 Sertraline HCl (Zoloft) 100 mg DAILY GTB Last administered on 07/17/16 09:56; Admin Dose 100 MG; Start 07/12/16 at 09:00 Simethicone (Mylicon) 80 mg Q6H PRN PO DISTENSION/GAS/BLOATING; Start 07/11/16 at 15:30 Sucralfate (Carafate) 1 gm Q6 PO Last administered on 07/17/16 11:09; Admin Dose 1 GM; Start 07/11/16 at 18:00 Lorazepam (Ativan) 0.5 mg Q6H PRN IV ANXIETY; Start 07/11/16 at 15:30 Ondansetron HCl (Zofran Inj) 4 mg Q6H PRN IV NAUSEA AND/OR VOMITING; Start at 15:30 Nitroglycerin (Nitroglycerin (Sl Tab) 0.4 Mg) 1 tab Q5M PRN SL CHEST PAIN; Start 07/11/16 at 15:30 Acetaminophen (Tylenol Tab) 650 mg Q6H PRN PO PAIN LEVEL 1-3 OR FEVER; Start at 15:30 Acetaminophen (Tylenol Supp) 650 mg Q6H PRN [place] PAIN LEVEL 1-3 OR FEVER; Start 07/11/16 at 15:30 IV Flush (NS 10 ml) 10 ml PRN PRN IV IV PROTOCOL; Start 07/11/16 at 19:30 Docusate Sodium (Colace) 100 mg BID PO Last administered on 07/16/16 21:43; Admin Dose 100 MG; Start 07/14/16 at 14:00 Sodium Biphosphate/ Sodium Phosphate 133 ml 133 ml Q48H PRN [place] CONSTIPATION Last administered on 07/17/16 03:08; Admin Dose 133 ML; Start 07/14/16 at 14:00 Ertapenem/Sodium Chloride (Invanz/NS) 100 ml @ 200 mls/hr Q24H IVPB Last administered on 07/17/16 16:28; Admin Dose 200 MLS/HR; Start 07/14/16 at 16:00 Furosemide (Lasix) 40 mg DAILY PEG Last administered on 07/17/16 09:53; Admin Dose 40 MG; Start 07/16/16 at 09:00 Phenol (Cepastat Lozenge) 1 lozenge QID PRN [place] SORE THROAT; Start 07/17/16 at 17 :00 KATI AKHTAR [employer] MANAGER Jul 17, 2016 17:58
--- NOTE | 2016-07-17 19:58 | CONS ---
Date/Time of Note Date/Time of Note DATE: 07/17/16 TIME: 19:57 Assessment/Plan Assessment/Plan Chief Complaint/Hosp Course Assessment: Acute on chronic hypoxic and hypercarbic respiratory failure, chronically ventilator dependent - from heart failure, possible pneumonia Acute on chronic diastolic heart failure - improved with diuresis Paroxysmal atrial fibrillation - currently sinus rhythm Chronic left bundle branch block Hypertension Morbid obesity Obstructive sleep apnea Urinary tract infection, ESBL E. coli - antibiotics per infectious disease Recommendations: -echocardiogram 03/31/2016 showed LVEF 55%, moderate LVH, mild diastolic dysfunction - will not repeat at this time -continue Lasix 40mg GT daily - may need to hold if renal function continues to worsen -continue aspirin 81mg daily -continue amiodarone 200mg BID and diltiazem 60mg BID Problems: Consultation Date/Type/Reason Admit Date/Time Jul 12, 2016 at 14:14 Initial Consult Date 07/13/16 Type of Consultation: Cardiology 24 HR Interval Summary Free Text/Dictation No acute events. Detailed Summary Additional Comments 14 point review of systems without changes. Exam/Review of Systems Vital Signs Vitals Vital Signs Date Time Temp Pulse Resp B/P Pulse Ox O2 Delivery O2 Flow Rate FiO2 07/17/16 19:31 70 30 95 60 07/17/16 15:30 98.1 124/58 Intake and Output 07/16/16 07/16/16 07/17/16 15:00 23:00 07:00 Intake Total 950 ml 200 ml Balance 950 ml 200 ml Exam Constitutional: alert, obese (morbidly) Psych: no complaints Head: atraumatic, normocephalic Eyes: nl conjunctiva, nl lids ENMT: nl external ears & nose, nl nasal mucosa & septum Neck: other (tracheostomy), supple Respiratory: diminished breath sounds Cardiovascular: regular rate and rhythm Gastrointestinal: non-tender, soft Extremities: edema, No clubbing, No cyanosis Results Result Diagram: 07/16/1662707/16/16627 Medications Medications Current Medications Amiodarone HCl (Cordarone) 200 mg BID GTB Last administered on 07/17/16 09:54; Admin Dose 200 MG; Start 07/11/16 at 21:00 Aspirin (Aspirin) 81 mg DAILY PO Last administered on 07/17/16 09:54; Admin Dose 81 MG; Start 07/12/16 at 09:00 Bisacodyl (Dulcolax) 5 mg DAILY PRN PO CONSTIPATION; Start 07/11/16 at 15:30 Diltiazem HCl (Cardizem Sr) 60 mg Q12 PO Last administered on 07/17/16 09:55; Admin Dose 60 MG; Start 07/11/16 at 21:00 Enoxaparin Sodium (Lovenox) 40 mg DAILY SC Last administered on 07/17/16 10:01 ; Admin Dose 40 MG; Start 07/12/16 at 09:00 Gabapentin (Neurontin) 300 mg TID GTB Last administered on 07/17/16 13:19; Admin Dose 300 MG; Start 07/11/16 at 21:00 Hydralazine HCl (Apresoline) 10 mg Q4 PRN PO ELEVATED BLOOD PRESSURE>150 Last administered on 07/15/16 13:04; Admin Dose 10 MG; Start 07/11/16 at 15:30 Lactulose (Enulose) 20 gm BID PRN PO CONSTIPATION; Start 07/11/16 at 15:30 Nystatin 1 applic DAILY TOP Last administered on 07/17/16 09:56; Admin Dose 1 APPLIC; Start 07/12/16 at 09:00 Olanzapine (Zyprexa) 5 mg DAILY GTB Last administered on 07/17/16 09:54; Admin Dose 5 MG; Start 07/12/16 at 09:00 Pantoprazole (Protonix Tab) 40 mg DAILY PO Last administered on 07/17/16 09:53 ; Admin Dose 40 MG; Start 07/12/16 at 09:00 Potassium Chloride (Klor-Con 20) 40 meq DAILY PO Last administered on 07/17/16 09:56; Admin Dose 40 MEQ; Start 07/12/16 at 09:00 Sertraline HCl (Zoloft) 100 mg DAILY GTB Last administered on 07/17/16 09:56; Admin Dose 100 MG; Start 07/12/16 at 09:00 Simethicone (Mylicon) 80 mg Q6H PRN PO DISTENSION/GAS/BLOATING; Start 07/11/16 at 15:30 Sucralfate (Carafate) 1 gm Q6 PO Last administered on 07/17/16 18:49; Admin Dose 1 GM; Start 07/11/16 at 18:00 Lorazepam (Ativan) 0.5 mg Q6H PRN IV ANXIETY; Start 07/11/16 at 15:30 Ondansetron HCl (Zofran Inj) 4 mg Q6H PRN IV NAUSEA AND/OR VOMITING; Start at 15:30 Nitroglycerin (Nitroglycerin (Sl Tab) 0.4 Mg) 1 tab Q5M PRN SL CHEST PAIN; Start 07/11/16 at 15:30 Acetaminophen (Tylenol Tab) 650 mg Q6H PRN PO PAIN LEVEL 1-3 OR FEVER; Start at 15:30 Acetaminophen (Tylenol Supp) 650 mg Q6H PRN [place] PAIN LEVEL 1-3 OR FEVER; Start 07/11/16 at 15:30 IV Flush (NS 10 ml) 10 ml PRN PRN IV IV PROTOCOL; Start 07/11/16 at 19:30 Docusate Sodium (Colace) 100 mg BID PO Last administered on 07/16/16 21:43; Admin Dose 100 MG; Start 07/14/16 at 14:00 Sodium Biphosphate/ Sodium Phosphate 133 ml 133 ml Q48H PRN [place] CONSTIPATION Last administered on 07/17/16 03:08; Admin Dose 133 ML; Start 07/14/16 at 14:00 Ertapenem/Sodium Chloride (Invanz/NS) 100 ml @ 200 mls/hr Q24H IVPB Last administered on 07/17/16 16:28; Admin Dose 200 MLS/HR; Start 07/14/16 at 16:00 Furosemide (Lasix) 40 mg DAILY PEG Last administered on 07/17/16 09:53; Admin Dose 40 MG; Start 07/16/16 at 09:00 Phenol (Cepastat Lozenge) 1 lozenge QID PRN [place] SORE THROAT; Start 07/17/16 at 17 :00 RENAE SKY MD Jul 17, 2016 19:58
--- NOTE | 2016-07-17 22:14 | RADRPT ---
PROCEDURE: XR Chest. CLINICAL INDICATION: LEFT UPPER ARM PICC LINE VERIFICATION TECHNIQUE: Single frontal chest x-ray. COMPARISON: 07/13/2016 FINDINGS: Left PICC line is seen to the approximate level of the junction of the left brachiocephalic vein and superior vena cava. Tracheostomy tube is again seen. The patient is rotated to the left. Enlarge ment of the cardiac silhouette, pulmonary vascular congestion and bilateral lung densities suggestiv e of pulmonary edema again seen. Dual chamber cardiac pacemaker again seen. Calcification in the a ortic arch.. IMPRESSION: Left PICC line seen to approximate level of junction of left brachiocephalic vein and superior vena cava. Please see above. RPTAT: HJES .Haris Mckeon MD, MD Date Time Electronically viewed and signed by .Haris Mckeon MD, on 07/17/2016 22:13 .S/
[2016-07-17] MEDS: CEPASTAT LOZENGE MT PRN (23:32)
[2016-07-18] VITALS (18 sets, daily range): BP systolic 137–149; BP diastolic 63–67; RESP 17–35
[2016-07-18] MEDS: traMADol 50 MG TAB PO PRN ×2 (01:45→05:06)
[2016-07-18] MEDS: CEPASTAT LOZENGE MT PRN ×8 (02:34→23:19)
[2016-07-18] MEDS: SUCRALFATE 1 GM TAB PO SCH ×4 (05:06→23:19)
[2016-07-18 05:20] LABS: AADO2 Arterial 267.7 mmHg (7.0-24.0); Allen Test ACCEPTAB; Arterial Base Excess 10.2 mmol/L (-3.0-3); Arterial COHb 1.4 % (0.0-3.0); Arterial Fraction of Oxyhgb 93.5 % (93.0-99.0); Arterial HCO3 37.6 mmol/L (22.0-26.0); Arterial MetHb 0 % (0.0-1.5); Arterial Total Hemglobin 9.2 g/dl (12.0-18.0); MODE VENT - AC
--- NOTE | 2016-07-18 08:23 | RADRPT ---
AMENDMENT: 07/18/2016 8:23:49 AM Lonny Smallwood Md Correction: IMPRESSION: 1. No change from 07/17/2016. PROCEDURE: XR Chest. CLINICAL INDICATION: Shortness of breath. TECHNIQUE: Single frontal view. COMPARISON: 07/17/2016. FINDINGS: The tracheostomy tube, left arm PICC line, and dual lead right-sided permanent pacemaker are once ag ain noted. There is air space and interstitial disease bilaterally consistent with pulmonary edema. The heart is enlarged. There is calcification in the aorta consistent with atherosclerosis. There are small bilateral pleural effusions. There is no pneumothorax. IMPRESSION: 1. No change from 06/03. RPTAT: QQ .Lonny Smallwood MD, MD Date Time Electronically viewed and signed by .Lonny Smallwood MD, MD on 07/18/2016 08:23 .R/
[2016-07-18] MEDS: DOCUSATE SODIUM 100 MG CAP PO SCH ×2 (08:48→21:08)
[2016-07-18] MEDS: PANTOPRAZOLE (EC) 40 MG TAB PO SCH (08:49)
[2016-07-18] MEDS: ASPIRIN 81 MG TAB PO SCH (08:49)
[2016-07-18] MEDS: OLANZAPINE 5 MG TAB GTB SCH (08:49)
[2016-07-18] MEDS: GABAPENTIN 300 MG CAP GTB SCH ×3 (08:50→21:08)
[2016-07-18] MEDS: POTASSIUM CHLORIDE (SR) 20 MEQ TAB PO SCH (08:50)
[2016-07-18] MEDS: AMIODARONE 200 MG TAB GTB SCH ×2 (08:52→21:13)
[2016-07-18] MEDS: SERTRALINE 100 MG TAB GTB SCH (08:52)
[2016-07-18] MEDS: DILTIAZEM (SR) 60 MG CAP PO SCH ×2 (08:52→21:12)
[2016-07-18] MEDS: FUROSEMIDE 40 MG/4 ML CUP PEG SCH (08:53)
[2016-07-18] MEDS: ALBUTEROL HFA 8 GM INHALER INH SCH ×2 (08:53→20:20)
[2016-07-18] MEDS: ENOXAPARIN 40 MG/0.4 ML SYG SC SCH (08:56)
[2016-07-18] MEDS: NYSTATIN 15 GM POWDER BTL TOP SCH (09:12)
--- NOTE | 2016-07-18 11:26 | CONS ---
Date/Time of Note Date/Time of Note DATE: 07/18/16 TIME: 11:25 Consult Date/Type/Reason Admit Date/Time Jul 12, 2016 at 14:14 Initial Consult Date 07/13/16 Type of Consultation: pulmonary Subjective Patient remained stable no new events Awake alert and oriented FiO2 decreased to 50% Objective Vital Signs Date Time Temp Pulse Resp B/P Pulse Ox O2 Delivery O2 Flow Rate FiO2 07/18/16 09:05 69 31 97 60 07/18/16 07:33 98.9 148/67 Intake and Output 07/17/16 07/17/16 07/18/16 15:00 23:00 07:00 Intake Total 100 ml 800 ml Balance 100 ml 800 ml Exam PHYSICAL EXAMINATION: GENERAL: Morbidly appearing gentleman on mechanical ventilation via tracheostomy. VITAL SIGNS: As above NECK: Supple. No JVD, lymphadenopathy. Trach site clean, intact. CARDIAC: S1, S2. Distant heart sounds. CHEST: Diminished air entry bilaterally. ABDOMEN: Obese morbidly. Soft, nontender. No guarding or rebound. EXTREMITIES: No cyanosis, clubbing. 1+ edema. NEUROLOGIC: Unable to assess. Results/Medications Result Diagram: 07/16/1628 07/16/1628 Results 24 hrs Laboratory Tests Test 07/18/16 05:00 Blood Gas Specimen Source Blood arterial Arterial Blood Date Drawn 07/18/2016 4:50:04 AM Arterial Blood pH (Temp corrected) 7.350 Arterial Blood pCO2 (Temp correct) 69.6 H Arterial Blood pO2 (Temp corrected) 83.5 Arterial Blood HCO3 37.6 H Arterial Blood Base Excess 10.2 H Arterial Blood Oxygen Saturation 94.8 L Rk Test ACCEPTAB Arterial Blood Gas Puncture Site Left Radial Arterial Blood Carboxyhemoglobin 1.4 Arterial Blood Methemoglobin 0 Blood Gas A-a O2 Differential 267.7 H Oxyhemoglobin Percent 93.5 Total Hemoglobin 9.2 L Blood Gas Temperature 37.0 Blood Gas Respiration Rate 24.0 Blood Gas Actual Respiration Rate 27 Blood Gas Modality VENT - AC FiO2 60.0 Blood Gas Tidal Volume 600.0 Blood Gas Low PEEP Setting 5.0 Blood Gas Notified Whom MG Blood Gas Notified Time 07/18/2016 5:19:56 AM Medications Current Medications Amiodarone HCl (Cordarone) 200 mg BID GTB Last administered on 07/18/16t 08:52; Admin Dose 200 MG; Start 3/27/17 at 21:00 Aspirin (Aspirin) 81 mg DAILY PO Last administered on 07/18/16 08:49; Admin Dose 81 MG; Start 07/12/16 at 09:00 Bisacodyl (Dulcolax) 5 mg DAILY PRN PO CONSTIPATION; Start 07/11/16 at 15:30 Diltiazem HCl (Cardizem Sr) 60 mg Q12 PO Last administered on 07/18/16 08:52; Admin Dose 60 MG; Start 07/11/16 at 21:00 Enoxaparin Sodium (Lovenox) 40 mg DAILY SC Last administered on 07/18/16 08:56 ; Admin Dose 40 MG; Start 07/12/16 at 09:00 Gabapentin (Neurontin) 300 mg TID GTB Last administered on 07/18/16 08:50; Admin Dose 300 MG; Start 07/11/16 at 21:00 Hydralazine HCl (Apresoline) 10 mg Q4 PRN PO ELEVATED BLOOD PRESSURE>150 Last administered on 07/15/16 13:04; Admin Dose 10 MG; Start 07/11/16 at 15:30 Lactulose (Enulose) 20 gm BID PRN PO CONSTIPATION; Start 07/11/16 at 15:30 Nystatin 1 applic DAILY TOP Last administered on 07/18/16 09:12; Admin Dose 1 APPLIC; Start 07/12/16 at 09:00 Olanzapine (Zyprexa) 5 mg DAILY GTB Last administered on 07/18/16 08:49; Admin Dose 5 MG; Start 07/12/16 at 09:00 Pantoprazole (Protonix Tab) 40 mg DAILY PO Last administered on 07/18/16 08:49 ; Admin Dose 40 MG; Start 07/12/16 at 09:00 Potassium Chloride (Klor-Con 20) 40 meq DAILY PO Last administered on 07/18/16 08:50; Admin Dose 40 MEQ; Start 07/12/16 at 09:00 Sertraline HCl (Zoloft) 100 mg DAILY GTB Last administered on 07/18/16 08:52; Admin Dose 100 MG; Start 07/12/16 at 09:00 Simethicone (Mylicon) 80 mg Q6H PRN PO DISTENSION/GAS/BLOATING; Start 07/11/16 at 15:30 Sucralfate (Carafate) 1 gm Q6 PO Last administered on 07/18/16 05:06; Admin Dose 1 GM; Start 07/11/16 at 18:00 Lorazepam (Ativan) 0.5 mg Q6H PRN IV ANXIETY; Start 07/11/16 at 15:30 Ondansetron HCl (Zofran Inj) 4 mg Q6H PRN IV NAUSEA AND/OR VOMITING; Start at 15:30 Nitroglycerin (Nitroglycerin (Sl Tab) 0.4 Mg) 1 tab Q5M PRN SL CHEST PAIN; Start 07/11/16 at 15:30 Acetaminophen (Tylenol Tab) 650 mg Q6H PRN PO PAIN LEVEL 1-3 OR FEVER; Start at 15:30 Acetaminophen (Tylenol Supp) 650 mg Q6H PRN [place] PAIN LEVEL 1-3 OR FEVER; Start 07/11/16 at 15:30 IV Flush (NS 10 ml) 10 ml PRN PRN IV IV PROTOCOL; Start 07/11/16 at 19:30 Docusate Sodium (Colace) 100 mg BID PO Last administered on 07/18/16 08:48; Admin Dose 100 MG; Start 07/14/16 at 14:00 Sodium Biphosphate/ Sodium Phosphate 133 ml 133 ml Q48H PRN [place] CONSTIPATION Last administered on 07/17/16 03:08; Admin Dose 133 ML; Start 07/14/16 at 14:00 Ertapenem/Sodium Chloride (Invanz/NS) 100 ml @ 200 mls/hr Q24H IVPB Last administered on 07/17/16 16:28; Admin Dose 200 MLS/HR; Start 07/14/16 at 16:00 Furosemide (Lasix) 40 mg DAILY PEG Last administered on 07/18/16 08:53; Admin Dose 40 MG; Start 07/16/16 at 09:00 Phenol (Cepastat Lozenge) 1 lozenge Q2H PRN [place] SORE THROAT Last administered on 07/18/16 10:42; Admin Dose 1 LOZENGE; Start 07/18/16 at 11:00 Assessment/Plan Chief Complaint/Hosp Course IMPRESSION AND PLAN: 1. Ventilator-dependent respiratory failure. 2. ESBL UTI sensitive to Zosyn 3. Morbid obesity. 4. Acute on chronic hypercapnic respiratory failure and hypoxic respiratory failure. 5. Radiographic evidence of left pleural effusion. 6. Anemia likely of chronic disease status post transfusion 1 unit packed red blood cells The patient will require: 1. Continue PMV. 2. Continue mechanical ventilation 3. Continued antibiotics for urinary tract infection. Sensitive to Zosyn 4. Continued feeding as tolerated. 5. DVT and GI prophylaxis. Discharge planning okay from pulmonary standpoint Problems: DOROTHY BUENROSTRO MD, [facility] Jul 18, 2016 11:26
[2016-07-18 13:15] LABS: ADD UMIC YES; URINE BILIRUBIN (Dip) NEGATIVE (NEGATIVE); URINE BLOOD (Dip) NEGATIVE (NEGATIVE); URINE COLOR LT. YELLOW (YELLOW); URINE GLUCOSE (Dip) NEGATIVE (NEGATIVE); URINE KETONES (Dip) NEGATIVE (NEGATIVE); URINE LEUKOCYTE ESTERASE (Dip) 2+ (NEGATIVE); URINE NITRITE (Dip) NEGATIVE (NEGATIVE); URINE TOTAL PROTEIN (Dip) NEGATIVE (NEGATIVE); URINE UROBILINOGEN (Dip) 0.2 E.U./dL (0.1-1.0)
[2016-07-18 13:39] LABS: URINE RBCS 0-2 /HPF (0)
[2016-07-18 13:40] LABS: BACTERIA,URINE FEW
--- NOTE | 2016-07-18 13:49 | PN ---
Date/Time of Note Date/Time of Note DATE: 07/18/16 TIME: 13:45 Assessment/Plan VTE Prophylaxis VTE Prophylaxis Intervention: LMWH Lines/Catheters IV [facility]from [facility] Urinary Cath still in place: No Assessment/Plan Chief Complaint/Hosp Course ASSESSMENT AND PLAN: 1. Acute on chronic respiratory failure. Likely secondary to pulmonary edema versus pneumonia transcription specialist has been consulted, continue breathing treatment, antibiotics, continue vent management 2. Morbid obesity with body mass index of 108. Place the patient on low calorie diet 3. Essential hypertension. Continue medical management 4. History of arrhythmia, on amiodarone, Lovenox and Cardizem. 5. Major depression. Continue Zyprexa and Zoloft. 6. History of gastrointestinal bleed. Continue PPI and sucralfate. 7. Left pleural effusion. Continue broad spectrum IV antibiotics. 8. Pulmonary edema on Lasix. 9. UTI with ESBL. continue Zosyn, follow-up urine culture and sensitivity Deep venous thrombosis prophylaxis, on Lovenox. We will continue to monitor patient closely. Further recommendations, management and treatment as per clinical course. Plan to discharge back to half-way facility if urinalysis negative for ESBL Problems: Subjective 24 Hr Interval Summary Free Text/Dictation No acute changes Patient denies of any chest pain or shortness of breath Tolerating vent Tolerating p.o. intake without any difficulty Unfortunately urinalysis which was ordered on has not been collected therefore today collected a UA and we will follow up culture and sensitivity Exam/Review of Systems Vital Signs Vitals Vital Signs Date Time Temp Pulse Resp B/P Pulse Ox O2 Delivery O2 Flow Rate FiO2 07/18/16 11:39 98.7 65 18 143/65 91 07/18/16 11:10 50 Intake and Output 07/17/16 07/17/16 07/18/16 15:00 23:00 07:00 Intake Total 100 ml 800 ml Balance 100 ml 800 ml Exam General: The patient is morbidly obese, Not in acute distress. HEENT: Atraumatic, normocephalic. The pupils are equal and round . Neck: Supple, trach in place Chest: Normal expansion of the thorax during inspiration Lungs: Breath sounds distant secondary to body habitus, clear to auscultation bilaterally Heart: Normal S1-S2, Regular rhythm and rate. Abdomen: Abdominal contour is morbidly obese , soft , nontender, nondistended . Extremities: Normal to inspection, trace edema no cyanosis Neurologic: Normal mental status,The patient is awake, alert and oriented . Results Result Diagram: 07/16/16 0628 07/16/16 0628 Results 24 hrs Laboratory Tests Test 07/18/16 05:00 07/18/16 12:38 Blood Gas Specimen Source Blood arterial Arterial Blood Date Drawn 07/18/2016 4:50:04 AM Arterial Blood pH (Temp corrected) 7.350 Arterial Blood pCO2 (Temp correct) 69.6 H Arterial Blood pO2 (Temp corrected) 83.5 Arterial Blood HCO3 37.6 H Arterial Blood Base Excess 10.2 H Arterial Blood Oxygen Saturation 94.8 L Rk Test ACCEPTAB Arterial Blood Gas Puncture Site Left Radial Arterial Blood Carboxyhemoglobin 1.4 Arterial Blood Methemoglobin 0 Blood Gas A-a O2 Differential 267.7 H Oxyhemoglobin Percent 93.5 Total Hemoglobin 9.2 L Blood Gas Temperature 37.0 Blood Gas Respiration Rate 24.0 Blood Gas Actual Respiration Rate 27 Blood Gas Modality VENT - AC FiO2 60.0 Blood Gas Tidal Volume 600.0 Blood Gas Low PEEP Setting 5.0 Blood Gas Notified Whom MG Blood Gas Notified Time 07/18/2016 5:19:56 AM Urine Color LT. YELLOW Urine Clarity CLEAR Urine pH 5.5 Urine Specific [place] 1.020 Urine Ketones NEGATIVE Urine Nitrite NEGATIVE Urine Bilirubin NEGATIVE Urine Urobilinogen 0.2 E.U./dL Urine Leukocyte Esterase 2+ H Urine Microscopic RBC 0-2 Urine Microscopic WBC 2-5 Urine Epithelial Cells FEW Urine Bacteria FEW Urine Mucus Urine Hemoglobin NEGATIVE Urine Glucose NEGATIVE Urine Total Protein NEGATIVE Medications Medications Current Medications Amiodarone HCl (Cordarone) 200 mg BID GTB Last administered on 07/18/16 08:52; Admin Dose 200 MG; Start 07/11/16 at 21:00 Aspirin (Aspirin) 81 mg DAILY PO Last administered on 07/18/16 08:49; Admin Dose 81 MG; Start 07/12/16 at 09:00 Bisacodyl (Dulcolax) 5 mg DAILY PRN PO CONSTIPATION; Start 07/11/16 at 15:30 Diltiazem HCl (Cardizem Sr) 60 mg Q12 PO Last administered on 07/18/16 08:52; Admin Dose 60 MG; Start 07/11/16 at 21:00 Enoxaparin Sodium (Lovenox) 40 mg DAILY SC Last administered on 07/18/16 08:56 ; Admin Dose 40 MG; Start 07/12/16 at 09:00 Gabapentin (Neurontin) 300 mg TID GTB Last administered on 07/18/16 12:33; Admin Dose 300 MG; Start 07/11/16 at 21:00 Hydralazine HCl (Apresoline) 10 mg Q4 PRN PO ELEVATED BLOOD PRESSURE>150 Last administered on 07/15/16 13:04; Admin Dose 10 MG; Start 07/11/16 at 15:30 Lactulose (Enulose) 20 gm BID PRN PO CONSTIPATION; Start 07/11/16 at 15:30 Nystatin 1 applic DAILY TOP Last administered on 07/18/16 09:12; Admin Dose 1 APPLIC; Start 07/12/16 at 09:00 Olanzapine (Zyprexa) 5 mg DAILY GTB Last administered on 07/18/16 08:49; Admin Dose 5 MG; Start 07/12/16 at 09:00 Pantoprazole (Protonix Tab) 40 mg DAILY PO Last administered on 07/18/16 08:49 ; Admin Dose 40 MG; Start 07/12/16 at 09:00 Potassium Chloride (Klor-Con 20) 40 meq DAILY PO Last administered on 07/18/16 08:50; Admin Dose 40 MEQ; Start 07/12/16 at 09:00 Sertraline HCl (Zoloft) 100 mg DAILY GTB Last administered on 07/18/16 08:52; Admin Dose 100 MG; Start 07/12/16 at 09:00 Simethicone (Mylicon) 80 mg Q6H PRN PO DISTENSION/GAS/BLOATING; Start 07/11/16 at 15:30 Sucralfate (Carafate) 1 gm Q6 PO Last administered on 07/18/16 12:33; Admin Dose 1 GM; Start 07/11/16 at 18:00 Lorazepam (Ativan) 0.5 mg Q6H PRN IV ANXIETY; Start 07/11/16 at 15:30 Ondansetron HCl (Zofran Inj) 4 mg Q6H PRN IV NAUSEA AND/OR VOMITING; Start at 15:30 Nitroglycerin (Nitroglycerin (Sl Tab) 0.4 Mg) 1 tab Q5M PRN SL CHEST PAIN; Start 07/11/16 at 15:30 Acetaminophen (Tylenol Tab) 650 mg Q6H PRN PO PAIN LEVEL 1-3 OR FEVER; Start at 15:30 Acetaminophen (Tylenol Supp) 650 mg Q6H PRN [place] PAIN LEVEL 1-3 OR FEVER; Start 07/11/16 at 15:30 IV Flush (NS 10 ml) 10 ml PRN PRN IV IV PROTOCOL; Start 07/11/16 at 19:30 Docusate Sodium (Colace) 100 mg BID PO Last administered on 07/18/16 08:48; Admin Dose 100 MG; Start 07/14/16 at 14:00 Sodium Biphosphate/ Sodium Phosphate 133 ml 133 ml Q48H PRN [place] CONSTIPATION Last administered on 07/17/16 03:08; Admin Dose 133 ML; Start 07/14/16 at 14:00 Ertapenem/Sodium Chloride (Invanz/NS) 100 ml @ 200 mls/hr Q24H IVPB Last administered on 07/17/16 16:28; Admin Dose 200 MLS/HR; Start 07/14/16 at 16:00 Furosemide (Lasix) 40 mg DAILY PEG Last administered on 07/18/16 08:53; Admin Dose 40 MG; Start 07/16/16 at 09:00 Phenol (Cepastat Lozenge) 1 lozenge Q2H PRN [place] SORE THROAT Last administered on 07/18/16 12:33; Admin Dose 1 LOZENGE; Start 07/18/16 at 11:00 DORYS TINOCO MD Jul 18, 2016 13:49
--- NOTE | 2016-07-18 14:34 | CONS ---
Date/Time of Note Date/Time of Note DATE: 07/18/16 TIME: 14:33 Assessment/Plan Assessment/Plan Chief Complaint/Hosp Course SUBJECTIVE: No events overnight. Patient is alert. Denies pain. No fevers. MICROBIOLOGY: Urine culture growing E. coli ESBL. ANTIMICROBIALS: Invanz INDWELLINGS: Trach. PICC line placed on 07/11/2016. PHYSICAL EXAMINATION: GENERAL: This is a morbidly obese, elderly man, who is alert, in no distress. HEENT: Head atraumatic, normocephalic. Sclerae anicteric. Buccal mucosa dry. NECK: Supple, tracheostomy present. CHEST: Chest rise is symmetrical. Breath sounds diminished. HEART: S1, S2. ABDOMEN: Obese. Soft. Bowel tones hypoactive. EXTREMITIES: With bilateral edema. ASSESSMENT: 1. Systemic inflammatory response syndrome. 2. Escherichia coli extended-spectrum beta-lactamase urinary tract infection. 3. Morbid obesity. 4. Chronic respiratory failure. 5. Coronary artery disease, with a history of permanent pacemaker placement. PLAN: Remains stable. Continue present care, complete abx for 3 more days, pending repeat urine cx. DW staff Problems: Consultation Date/Type/Reason Admit Date/Time Jul 12, 2016 at 14:14 Initial Consult Date 07/13/16 Type of Consultation: id Exam/Review of Systems Vital Signs Vitals Vital Signs Date Time Temp Pulse Resp B/P Pulse Ox O2 Delivery O2 Flow Rate FiO2 07/18/16 13:30 68 27 96 50 07/18/16 11:39 98.7 143/65 Intake and Output 07/17/16 07/17/16 07/18/16 15:00 23:00 07:00 Intake Total 100 ml 800 ml Balance 100 ml 800 ml Results Result Diagram: 07/16/16 0628 07/16/16 0628 Results 24 hrs Laboratory Tests Test 07/18/16 05:00 07/18/16 12:38 Blood Gas Specimen Source Blood arterial Arterial Blood Date Drawn 07/18/2016 4:50:04 AM Arterial Blood pH (Temp corrected) 7.350 Arterial Blood pCO2 (Temp correct) 69.6 H Arterial Blood pO2 (Temp corrected) 83.5 Arterial Blood HCO3 37.6 H Arterial Blood Base Excess 10.2 H Arterial Blood Oxygen Saturation 94.8 L Rk Test ACCEPTAB Arterial Blood Gas Puncture Site Left Radial Arterial Blood Carboxyhemoglobin 1.4 Arterial Blood Methemoglobin 0 Blood Gas A-a O2 Differential 267.7 H Oxyhemoglobin Percent 93.5 Total Hemoglobin 9.2 L Blood Gas Temperature 37.0 Blood Gas Respiration Rate 24.0 Blood Gas Actual Respiration Rate 27 Blood Gas Modality VENT - AC FiO2 60.0 Blood Gas Tidal Volume 600.0 Blood Gas Low PEEP Setting 5.0 Blood Gas Notified Whom MG Blood Gas Notified Time 07/18/2016 5:19:56 AM Urine Color LT. YELLOW Urine Clarity CLEAR Urine pH 5.5 Urine Specific [place] 1.020 Urine Ketones NEGATIVE Urine Nitrite NEGATIVE Urine Bilirubin NEGATIVE Urine Urobilinogen 0.2 E.U./dL Urine Leukocyte Esterase 2+ H Urine Microscopic RBC 0-2 Urine Microscopic WBC 2-5 Urine Epithelial Cells FEW Urine Bacteria FEW Urine Mucus Urine Hemoglobin NEGATIVE Urine Glucose NEGATIVE Urine Total Protein NEGATIVE Medications Medications Current Medications Amiodarone HCl (Cordarone) 200 mg BID GTB Last administered on 07/18/16 08:52; Admin Dose 200 MG; Start 07/11/16 at 21:00 Aspirin (Aspirin) 81 mg DAILY PO Last administered on 07/18/16 08:49; Admin Dose 81 MG; Start 07/12/16 at 09:00 Bisacodyl (Dulcolax) 5 mg DAILY PRN PO CONSTIPATION; Start 07/11/16 at 15:30 Diltiazem HCl (Cardizem Sr) 60 mg Q12 PO Last administered on 07/18/16 08:52; Admin Dose 60 MG; Start 07/11/16 at 21:00 Enoxaparin Sodium (Lovenox) 40 mg DAILY SC Last administered on 07/18/16 08:56 ; Admin Dose 40 MG; Start 07/12/16 at 09:00 Gabapentin (Neurontin) 300 mg TID GTB Last administered on 07/18/16 12:33; Admin Dose 300 MG; Start 07/11/16 at 21:00 Hydralazine HCl (Apresoline) 10 mg Q4 PRN PO ELEVATED BLOOD PRESSURE>150 Last administered on 07/15/16 13:04; Admin Dose 10 MG; Start 07/11/16 at 15:30 Lactulose (Enulose) 20 gm BID PRN PO CONSTIPATION; Start 07/11/16 at 15:30 Nystatin 1 applic DAILY TOP Last administered on 07/18/16 09:12; Admin Dose 1 APPLIC; Start 07/12/16 at 09:00 Olanzapine (Zyprexa) 5 mg DAILY GTB Last administered on 07/18/16 08:49; Admin Dose 5 MG; Start 07/12/16 at 09:00 Pantoprazole (Protonix Tab) 40 mg DAILY PO Last administered on 07/18/16 08:49 ; Admin Dose 40 MG; Start 07/12/16 at 09:00 Potassium Chloride (Klor-Con 20) 40 meq DAILY PO Last administered on 07/18/16 08:50; Admin Dose 40 MEQ; Start 07/12/16 at 09:00 Sertraline HCl (Zoloft) 100 mg DAILY GTB Last administered on 07/18/16 08:52; Admin Dose 100 MG; Start 07/12/16 at 09:00 Simethicone (Mylicon) 80 mg Q6H PRN PO DISTENSION/GAS/BLOATING; Start 07/11/16 at 15:30 Sucralfate (Carafate) 1 gm Q6 PO Last administered on 07/18/16 12:33; Admin Dose 1 GM; Start 07/11/16 at 18:00 Lorazepam (Ativan) 0.5 mg Q6H PRN IV ANXIETY; Start 07/11/16 at 15:30 Ondansetron HCl (Zofran Inj) 4 mg Q6H PRN IV NAUSEA AND/OR VOMITING; Start at 15:30 Nitroglycerin (Nitroglycerin (Sl Tab) 0.4 Mg) 1 tab Q5M PRN SL CHEST PAIN; Start 07/11/16 at 15:30 Acetaminophen (Tylenol Tab) 650 mg Q6H PRN PO PAIN LEVEL 1-3 OR FEVER; Start at 15:30 Acetaminophen (Tylenol Supp) 650 mg Q6H PRN [place] PAIN LEVEL 1-3 OR FEVER; Start 07/11/16 at 15:30 IV Flush (NS 10 ml) 10 ml PRN PRN IV IV PROTOCOL; Start 07/11/16 at 19:30 Docusate Sodium (Colace) 100 mg BID PO Last administered on 07/18/16 08:48; Admin Dose 100 MG; Start 07/14/16 at 14:00 Sodium Biphosphate/ Sodium Phosphate 133 ml 133 ml Q48H PRN [place] CONSTIPATION Last administered on 07/17/16 03:08; Admin Dose 133 ML; Start 07/14/16 at 14:00 Ertapenem/Sodium Chloride (Invanz/NS) 100 ml @ 200 mls/hr Q24H IVPB Last administered on 07/17/16 16:28; Admin Dose 200 MLS/HR; Start 07/14/16 at 16:00 Furosemide (Lasix) 40 mg DAILY PEG Last administered on 07/18/16 08:53; Admin Dose 40 MG; Start 07/16/16 at 09:00 Phenol (Cepastat Lozenge) 1 lozenge Q2H PRN [place] SORE THROAT Last administered on 07/18/16 12:33; Admin Dose 1 LOZENGE; Start 07/18/16 at 11:00 KATI AKHTAR NP Jul 18, 2016 14:34
[2016-07-18] MEDS: ERTAPENEM SODIUM 1 GM in SOD CHLORIDE 0.9% 100 ML IVPB SCH (16:40)
--- NOTE | 2016-07-18 17:29 | CONS ---
Date/Time of Note Date/Time of Note DATE: 07/18/16 TIME: 17:28 Assessment/Plan Assessment/Plan Chief Complaint/Hosp Course Assessment: Acute on chronic hypoxic and hypercarbic respiratory failure, chronically ventilator dependent - from heart failure, possible pneumonia Acute on chronic diastolic heart failure - improved with diuresis Paroxysmal atrial fibrillation - currently sinus rhythm Chronic left bundle branch block Hypertension Morbid obesity Obstructive sleep apnea Urinary tract infection, ESBL E. coli - antibiotics per infectious disease Recommendations: -echocardiogram 03/31/2016 showed LVEF 55%, moderate LVH, mild diastolic dysfunction - will not repeat at this time -continue Lasix 40mg GT daily - may need to hold if renal function continues to worsen -continue aspirin 81mg daily -continue amiodarone 200mg BID and diltiazem 60mg BID Problems: Consultation Date/Type/Reason Admit Date/Time Jul 12, 2016 at 14:14 Initial Consult Date 07/13/16 Type of Consultation: Cardiology 24 HR Interval Summary Free Text/Dictation No acute events. Detailed Summary Additional Comments 14 point review of systems without changes. Exam/Review of Systems Vital Signs Vitals Vital Signs Date Time Temp Pulse Resp B/P Pulse Ox O2 Delivery O2 Flow Rate FiO2 07/18/16 15:21 98.0 69 19 145/67 91 07/18/16 15:00 50 Intake and Output 07/17/16 07/17/16 07/18/16 15:00 23:00 07:00 Intake Total 100 ml 800 ml Balance 100 ml 800 ml Exam Constitutional: alert, obese (morbidly) Psych: no complaints Head: atraumatic, normocephalic Eyes: nl conjunctiva, nl lids ENMT: nl external ears & nose, nl nasal mucosa & septum Neck: other (tracheostomy), supple Respiratory: diminished breath sounds Cardiovascular: regular rate and rhythm Gastrointestinal: non-tender, soft Extremities: edema, No clubbing, No cyanosis Results Result Diagram: 07/16/16 0628 07/16/16 0628 Results 24 hrs Laboratory Tests Test 07/18/16 05:00 07/18/16 12:38 Blood Gas Specimen Source Blood arterial Arterial Blood Date Drawn 07/18/2016 4:50:04 AM Arterial Blood pH (Temp corrected) 7.350 Arterial Blood pCO2 (Temp correct) 69.6 H Arterial Blood pO2 (Temp corrected) 83.5 Arterial Blood HCO3 37.6 H Arterial Blood Base Excess 10.2 H Arterial Blood Oxygen Saturation 94.8 L Rk Test ACCEPTAB Arterial Blood Gas Puncture Site Left Radial Arterial Blood Carboxyhemoglobin 1.4 Arterial Blood Methemoglobin 0 Blood Gas A-a O2 Differential 267.7 H Oxyhemoglobin Percent 93.5 Total Hemoglobin 9.2 L Blood Gas Temperature 37.0 Blood Gas Respiration Rate 24.0 Blood Gas Actual Respiration Rate 27 Blood Gas Modality VENT - AC FiO2 60.0 Blood Gas Tidal Volume 600.0 Blood Gas Low PEEP Setting 5.0 Blood Gas Notified Whom MG Blood Gas Notified Time 07/18/2016 5:19:56 AM Urine Color LT. YELLOW Urine Clarity CLEAR Urine pH 5.5 Urine Specific Ward 1.020 Urine Ketones NEGATIVE Urine Nitrite NEGATIVE Urine Bilirubin NEGATIVE Urine Urobilinogen 0.2 E.U./dL Urine Leukocyte Esterase 2+ H Urine Microscopic RBC 0-2 Urine Microscopic WBC 2-5 Urine Epithelial Cells FEW Urine Bacteria FEW Urine Mucus Urine Hemoglobin NEGATIVE Urine Glucose NEGATIVE Urine Total Protein NEGATIVE Medications Medications Current Medications Amiodarone HCl (Cordarone) 200 mg BID GTB Last administered on 07/18/16 08:52; Admin Dose 200 MG; Start 07/11/16 at 21:00 Aspirin (Aspirin) 81 mg DAILY PO Last administered on 07/18/16 08:49; Admin Dose 81 MG; Start 07/12/16 at 09:00 Bisacodyl (Dulcolax) 5 mg DAILY PRN PO CONSTIPATION; Start 07/11/16 at 15:30 Diltiazem HCl (Cardizem Sr) 60 mg Q12 PO Last administered on 07/18/16 08:52; Admin Dose 60 MG; Start 07/11/16 at 21:00 Enoxaparin Sodium (Lovenox) 40 mg DAILY SC Last administered on 07/18/16 08:56 ; Admin Dose 40 MG; Start 07/12/16 at 09:00 Gabapentin (Neurontin) 300 mg TID GTB Last administered on 07/18/16 12:33; Admin Dose 300 MG; Start 07/11/16 at 21:00 Hydralazine HCl (Apresoline) 10 mg Q4 PRN PO ELEVATED BLOOD PRESSURE>150 Last administered on 07/15/16 13:04; Admin Dose 10 MG; Start 07/11/16 at 15:30 Lactulose (Enulose) 20 gm BID PRN PO CONSTIPATION; Start 07/11/16 at 15:30 Nystatin 1 applic DAILY TOP Last administered on 07/18/16 09:12; Admin Dose 1 APPLIC; Start 07/12/16 at 09:00 Olanzapine (Zyprexa) 5 mg DAILY GTB Last administered on 07/18/16 08:49; Admin Dose 5 MG; Start 07/12/16 at 09:00 Pantoprazole (Protonix Tab) 40 mg DAILY PO Last administered on 07/18/16 08:49 ; Admin Dose 40 MG; Start 07/12/16 at 09:00 Potassium Chloride (Klor-Con 20) 40 meq DAILY PO Last administered on 07/18/16 08:50; Admin Dose 40 MEQ; Start 07/12/16 at 09:00 Sertraline HCl (Zoloft) 100 mg DAILY GTB Last administered on 07/18/16 08:52; Admin Dose 100 MG; Start 07/12/16 at 09:00 Simethicone (Mylicon) 80 mg Q6H PRN PO DISTENSION/GAS/BLOATING; Start 07/11/16 at 15:30 Sucralfate (Carafate) 1 gm Q6 PO Last administered on 07/18/16 12:33; Admin Dose 1 GM; Start 07/11/16 at 18:00 Lorazepam (Ativan) 0.5 mg Q6H PRN IV ANXIETY; Start 07/11/16 at 15:30 Ondansetron HCl (Zofran Inj) 4 mg Q6H PRN IV NAUSEA AND/OR VOMITING; Start at 15:30 Nitroglycerin (Nitroglycerin (Sl Tab) 0.4 Mg) 1 tab Q5M PRN SL CHEST PAIN; Start 07/11/16 at 15:30 Acetaminophen (Tylenol Tab) 650 mg Q6H PRN PO PAIN LEVEL 1-3 OR FEVER; Start at 15:30 Acetaminophen (Tylenol Supp) 650 mg Q6H PRN [place] PAIN LEVEL 1-3 OR FEVER; Start 07/11/16 at 15:30 IV Flush (NS 10 ml) 10 ml PRN PRN IV IV PROTOCOL; Start 07/11/16 at 19:30 Docusate Sodium (Colace) 100 mg BID PO Last administered on 07/18/16 08:48; Admin Dose 100 MG; Start 07/14/16 at 14:00 Sodium Biphosphate/ Sodium Phosphate 133 ml 133 ml Q48H PRN [place] CONSTIPATION Last administered on 07/17/16 03:08; Admin Dose 133 ML; Start 07/14/16 at 14:00 Ertapenem/Sodium Chloride (Invanz/NS) 100 ml @ 200 mls/hr Q24H IVPB Last administered on 07/18/16 16:40; Admin Dose 200 MLS/HR; Start 07/14/16 at 16:00 Furosemide (Lasix) 40 mg DAILY PEG Last administered on 07/18/16 08:53; Admin Dose 40 MG; Start 07/16/16 at 09:00 Phenol (Cepastat Lozenge) 1 lozenge Q2H PRN [place] SORE THROAT Last administered on 07/18/16 16:40; Admin Dose 1 LOZENGE; Start 07/18/16 at 11:00 RENAE SKY MD Jul 18, 2016 17:29
[2016-07-19] VITALS (14 sets, daily range): BP systolic 140–160; BP diastolic 65–74; RESP 17–33
[2016-07-19] MEDS: traMADol 50 MG TAB PO PRN ×2 (01:14→09:19)
[2016-07-19] MEDS: CEPASTAT LOZENGE MT PRN ×3 (01:15→09:19)
[2016-07-19] MEDS: SUCRALFATE 1 GM TAB PO SCH ×3 (05:56→18:01)
[2016-07-19] MEDS: AMIODARONE 200 MG TAB GTB SCH (09:11)
[2016-07-19] MEDS: GABAPENTIN 300 MG CAP GTB SCH ×2 (09:12→13:00)
[2016-07-19] MEDS: OLANZAPINE 5 MG TAB GTB SCH (09:12)
[2016-07-19] MEDS: SERTRALINE 100 MG TAB GTB SCH (09:12)
[2016-07-19] MEDS: ASPIRIN 81 MG TAB PO SCH (09:14)
[2016-07-19] MEDS: ALBUTEROL HFA 8 GM INHALER INH SCH (09:14)
[2016-07-19] MEDS: DOCUSATE SODIUM 100 MG CAP PO SCH (09:15)
[2016-07-19] MEDS: DILTIAZEM (SR) 60 MG CAP PO SCH (09:15)
[2016-07-19] MEDS: POTASSIUM CHLORIDE (SR) 20 MEQ TAB PO SCH (09:16)
[2016-07-19] MEDS: PANTOPRAZOLE (EC) 40 MG TAB PO SCH (09:16)
[2016-07-19] MEDS ORDERED: FUROSEMIDE 40 MG TAB PO SCH (09:18)
[2016-07-19] MEDS: NYSTATIN 15 GM POWDER BTL TOP SCH (09:18)
[2016-07-19] MEDS: ENOXAPARIN 40 MG/0.4 ML SYG SC SCH (09:23)
[2016-07-19 10:36] LABS: ADD SCAN DIFF NO
[2016-07-19 10:44] LABS: ABNORMAL IP MESSAGE 1; BASOPHILS % 0.5 % (0.0-2.0); EOSINOPHILS # 0.4 10^3/ul (0.0-0.5); EOSINOPHILS % 8.1 % (0.0-7.0); HEMOGLOBIN 8.7 g/dl (14.0-18.0); LYMPHOCYTES # 0.6 10^3/ul (0.8-2.9); LYMPHOCYTES % 10.3 % (15.0-51.0); MEAN CORPUSCULAR HEMOGLOBIN 27.1 pg (29.0-33.0); MEAN CORPUSCULAR VOLUME 93.5 fl (82.0-101.0); MEAN PLATELET VOLUME 12.6 fl (7.4-10.4); MONOCYTE # 0.4 10^3/ul (0.3-0.9); MONOCYTES % 7.5 % (0.0-11.0); NEUTROPHILS % 73.2 % (39.0-77.0); PLATELET COUNT 175 10^3/UL (140-415); RED BLOOD COUNT 3.21 10^6/ul (4.70-6.10); RED CELL DISTRIBUTION WIDTH 18.1 % (11.5-14.5); WHITE BLOOD COUNT 5.5 10^3/ul (4.8-10.8)
[2016-07-19 10:55] LABS: POTASSIUM 4.4 mmol/L (3.5-5.1)
[2016-07-19 10:58] LABS: CREATININE 1.03 mg/dl (0.61-1.24)
[2016-07-19 10:59] LABS: CALCIUM 8.2 mg/dl (8.4-10.2)
[2016-07-19 11:14] LABS: MAGNESIUM 2.2 mg/dl (1.7-2.5)
--- NOTE | 2016-07-19 12:43 | PN ---
DATE: 07/19/2016 Mr. Nielson'mili condition is stable. The patient remains completely awake, remains ventilator depen dent and has remained hemodynamically stable. PHYSICAL EXAMINATION: GENERAL: Elderly male, morbid obese, currently in no distress, awake and alert on ventilator via tr acheostomy. VITAL SIGNS: Temperature 98.8 degree Fahrenheit, respiratory rate is 18 to 20 per minute, heart rat e was 70 per minute, blood pressure is 120/70, O2 sat 97% on current ventilator settings. NECK: Supple neck. Tracheostomy in place with clean insertion site. No neck masses, no lymphadeno shanti, no thyromegaly. JVD difficult to see, because of short neck. CHEST EXAMINATION: Diminished but clear breath sounds. HEART: S1, S2 audible, no murmurs, regular rhythm. ABDOMEN: Soft, protuberant. No organomegaly. Bowel sounds audible. The patient has a G tube in p lace. EXTREMITIES: No peripheral edema. Pulses 1+ bilaterally. NEUROLOGIC: Patient is awake, alert, follows command, moves all 4 extremities. LABORATORY DATA: Today, white count is 5.5, hemoglobin 8.7, platelet count of 175, sodium 136, pota ssium 4.4, chloride 97, bicarbonate 34, glucose of 137, creatinine 1.0, BUN 24. MEDICATIONS: 1. Invanz 1 gram q.24h. 2. DuoNeb q.6h. 3. Amiodarone 200 mg b.i.d. 4. Cardizem 60 mg q.12h. 5. Lovenox 40 mg a day. 6. Lasix 40 mg a day. 7. Neurontin 300 mg t.i.d. 8. Zyprexa 5 mg daily. 9. Protonix 40 mg a day. 10. Zoloft 100 mg daily. 11. Carafate 1 gram q. 6 hours. VENTILATOR SETTINGS: An AC of 24, tidal volume 600, PEEP of 5, 60% FIO2. ASSESSMENT: 1. Patient admitted for CHF exacerbation as well as UTI. 2. Underlying morbid obesity. 3. Cardiomyopathy. 4. Anemia. 5. Chronic respiratory failure. RECOMMENDATIONS: Continue current treatment. Patient responding well to the current treatment deja shivam. Dictated By: ANAHI HURT/GABINO Conf#: [id number] DID#: [id number]
--- NOTE | 2016-07-19 13:03 | CONS ---
Date/Time of Note Date/Time of Note DATE: 07/19/16 TIME: 13:02 Assessment/Plan Assessment/Plan Chief Complaint/Hosp Course SUBJECTIVE: No events overnight. Patient is alert. No fevers. NAD MICROBIOLOGY: Urine culture growing E. coli ESBL. ANTIMICROBIALS: Invanz INDWELLINGS: Trach. PICC line placed on 07/11/2016. PHYSICAL EXAMINATION: GENERAL: This is a morbidly obese, elderly man, who is alert, in no distress. HEENT: Head atraumatic, normocephalic. Sclerae anicteric. Buccal mucosa dry. NECK: Supple, tracheostomy present. CHEST: Chest rise is symmetrical. Breath sounds diminished. HEART: S1, S2. ABDOMEN: Obese. Soft. Bowel tones hypoactive. EXTREMITIES: With bilateral edema. ASSESSMENT: 1. Systemic inflammatory response syndrome. 2. Escherichia coli extended-spectrum beta-lactamase urinary tract infection. 3. Morbid obesity. 4. Chronic respiratory failure. 5. Coronary artery disease, with a history of permanent pacemaker placement. PLAN: Remains stable. Continue present care, complete abx for 2 more days DW staff Problems: Consultation Date/Type/Reason Admit Date/Time Jul 12, 2016 at 14:14 Initial Consult Date 07/13/16 Type of Consultation: id Exam/Review of Systems Vital Signs Vitals Vital Signs Date Time Temp Pulse Resp B/P Pulse Ox O2 Delivery O2 Flow Rate FiO2 07/19/16 09:35 67 32 96 50 07/19/16 07:33 98.0 158/69 Intake and Output 07/18/16 07/18/16 07/19/16 15:00 23:00 07:00 Intake Total 1240 ml Balance 1240 ml Results Result Diagram: 07/19/16 1016 07/19/16 1016 Results 24 hrs Laboratory Tests Test 07/19/16 10:16 White Blood Count 5.5 Red Blood Count 3.21 L Hemoglobin 8.7 L Hematocrit 30.0 L Mean Corpuscular Volume 93.5 Mean Corpuscular Hemoglobin 27.1 L Mean Corpuscular Hemoglobin Concent 29.0 L Red Cell Distribution Width 18.1 H Platelet Count 175 Mean Platelet Volume 12.6 H Neutrophils % 73.2 Lymphocytes % 10.3 L Monocytes % 7.5 Eosinophils % 8.1 H Basophils % 0.5 Nucleated Red Blood Cells % 0.0 Neutrophils # 4.0 Lymphocytes # 0.6 L Monocytes # 0.4 Eosinophils # 0.4 Basophils # 0.0 Nucleated Red Blood Cells # 0.0 Sodium Level 136 Potassium Level 4.4 Chloride Level 97 Carbon Dioxide Level 34 H Anion Gap 9 Blood Urea Nitrogen 24 H Creatinine 1.03 Glucose Level 137 Calcium Level 8.2 L Magnesium Level 2.2 Medications Medications Current Medications Amiodarone HCl (Cordarone) 200 mg BID GTB Last administered on 07/19/16 09:11; Admin Dose 200 MG; Start 07/11/16 at 21:00 Aspirin (Aspirin) 81 mg DAILY PO Last administered on 07/19/16 09:14; Admin Dose 81 MG; Start 07/12/16 at 09:00 Bisacodyl (Dulcolax) 5 mg DAILY PRN PO CONSTIPATION; Start 07/11/16 at 15:30 Diltiazem HCl (Cardizem Sr) 60 mg Q12 PO Last administered on 07/19/16 09:15; Admin Dose 60 MG; Start 07/11/16 at 21:00 Enoxaparin Sodium (Lovenox) 40 mg DAILY SC Last administered on 07/19/16 09:23 ; Admin Dose 40 MG; Start 07/12/16 at 09:00 Gabapentin (Neurontin) 300 mg TID GTB Last administered on 07/19/16 09:12; Admin Dose 300 MG; Start 07/11/16 at 21:00 Hydralazine HCl (Apresoline) 10 mg Q4 PRN PO ELEVATED BLOOD PRESSURE>150 Last administered on 07/15/16 13:04; Admin Dose 10 MG; Start 07/11/16 at 15:30 Lactulose (Enulose) 20 gm BID PRN PO CONSTIPATION; Start 07/11/16 at 15:30 Nystatin 1 applic DAILY TOP Last administered on 07/19/16 09:18; Admin Dose 1 APPLIC; Start 07/12/16 at 09:00 Olanzapine (Zyprexa) 5 mg DAILY GTB Last administered on 07/19/16 09:12; Admin Dose 5 MG; Start 07/12/16 at 09:00 Pantoprazole (Protonix Tab) 40 mg DAILY PO Last administered on 07/19/16 09:16 ; Admin Dose 40 MG; Start 07/12/16 at 09:00 Potassium Chloride (Klor-Con 20) 40 meq DAILY PO Last administered on 07/19/16 09:16; Admin Dose 40 MEQ; Start 07/12/16 at 09:00 Sertraline HCl (Zoloft) 100 mg DAILY GTB Last administered on 07/19/16 09:12; Admin Dose 100 MG; Start 07/12/16 at 09:00 Simethicone (Mylicon) 80 mg Q6H PRN PO DISTENSION/GAS/BLOATING; Start 07/11/16 at 15:30 Sucralfate (Carafate) 1 gm Q6 PO Last administered on 07/19/16 05:56; Admin Dose 1 GM; Start 07/11/16 at 18:00 Lorazepam (Ativan) 0.5 mg Q6H PRN IV ANXIETY; Start 07/11/16 at 15:30 Ondansetron HCl (Zofran Inj) 4 mg Q6H PRN IV NAUSEA AND/OR VOMITING; Start at 15:30 Nitroglycerin (Nitroglycerin (Sl Tab) 0.4 Mg) 1 tab Q5M PRN SL CHEST PAIN; Start 07/11/16 at 15:30 Acetaminophen (Tylenol Tab) 650 mg Q6H PRN PO PAIN LEVEL 1-3 OR FEVER; Start at 15:30 Acetaminophen (Tylenol Supp) 650 mg Q6H PRN [place] PAIN LEVEL 1-3 OR FEVER; Start 07/11/16 at 15:30 IV Flush (NS 10 ml) 10 ml PRN PRN IV IV PROTOCOL; Start 07/11/16 at 19:30 Docusate Sodium (Colace) 100 mg BID PO Last administered on 07/19/16 09:15; Admin Dose 100 MG; Start 07/14/16 at 14:00 Sodium Biphosphate/ Sodium Phosphate 133 ml 133 ml Q48H PRN [place] CONSTIPATION Last administered on 07/17/16 03:08; Admin Dose 133 ML; Start 07/14/16 at 14:00 Ertapenem/Sodium Chloride (Invanz/NS) 100 ml @ 200 mls/hr Q24H IVPB Last administered on 07/18/16 16:40; Admin Dose 200 MLS/HR; Start 07/14/16 at 16:00 Phenol (Cepastat Lozenge) 1 lozenge Q2H PRN [place] SORE THROAT Last administered on 07/19/16 09:19; Admin Dose 1 LOZENGE; Start 07/18/16 at 11:00 Furosemide (Lasix) 40 mg DAILY PO Last administered on 07/19/16 09:25; Admin Dose 40 MG; Start 07/19/16 at 09:18 KATI AKHTAR NP Jul 19, 2016 13:03
--- NOTE | 2016-07-19 14:27 | CONS ---
Date/Time of Note Date/Time of Note DATE: 07/19/16 TIME: 14:26 Assessment/Plan Assessment/Plan Chief Complaint/Hosp Course Assessment: Acute on chronic hypoxic and hypercarbic respiratory failure, chronically ventilator dependent - from heart failure, possible pneumonia Acute on chronic diastolic heart failure - improved with diuresis Paroxysmal atrial fibrillation - currently sinus rhythm Chronic left bundle branch block Hypertension Morbid obesity Obstructive sleep apnea Urinary tract infection, ESBL E. coli - antibiotics per infectious disease Recommendations: -echocardiogram 03/31/2016 showed LVEF 55%, moderate LVH, mild diastolic dysfunction - will not repeat at this time -continue Lasix 40mg GT daily -continue aspirin 81mg daily -continue amiodarone 200mg BID and diltiazem 60mg BID Problems: Consultation Date/Type/Reason Admit Date/Time Jul 12, 2016 at 14:14 Initial Consult Date 07/13/16 Type of Consultation: Cardiology 24 HR Interval Summary Free Text/Dictation No acute events. Detailed Summary Additional Comments 14 point review of systems without changes. Exam/Review of Systems Vital Signs Vitals Vital Signs Date Time Temp Pulse Resp B/P Pulse Ox O2 Delivery O2 Flow Rate FiO2 07/19/16 13:20 65 30 94 45 07/19/16 07:33 98.0 158/69 Intake and Output 07/18/16 07/18/16 07/19/16 15:00 23:00 07:00 Intake Total 1240 ml Balance 1240 ml Exam Constitutional: alert, obese (morbidly) Psych: no complaints Head: atraumatic, normocephalic Eyes: nl conjunctiva, nl lids ENMT: nl external ears & nose, nl nasal mucosa & septum Neck: other (tracheostomy), supple Respiratory: diminished breath sounds Cardiovascular: regular rate and rhythm Gastrointestinal: non-tender, soft Extremities: edema, No clubbing, No cyanosis Results Result Diagram: 07/19/16 1016 07/19/16 1016 Results 24 hrs Laboratory Tests Test 07/19/16 10:16 White Blood Count 5.5 Red Blood Count 3.21 L Hemoglobin 8.7 L Hematocrit 30.0 L Mean Corpuscular Volume 93.5 Mean Corpuscular Hemoglobin 27.1 L Mean Corpuscular Hemoglobin Concent 29.0 L Red Cell Distribution Width 18.1 H Platelet Count 175 Mean Platelet Volume 12.6 H Neutrophils % 73.2 Lymphocytes % 10.3 L Monocytes % 7.5 Eosinophils % 8.1 H Basophils % 0.5 Nucleated Red Blood Cells % 0.0 Neutrophils # 4.0 Lymphocytes # 0.6 L Monocytes # 0.4 Eosinophils # 0.4 Basophils # 0.0 Nucleated Red Blood Cells # 0.0 Sodium Level 136 Potassium Level 4.4 Chloride Level 97 Carbon Dioxide Level 34 H Anion Gap 9 Blood Urea Nitrogen 24 H Creatinine 1.03 Glucose Level 137 Calcium Level 8.2 L Magnesium Level 2.2 Medications Medications Current Medications Amiodarone HCl (Cordarone) 200 mg BID GTB Last administered on 07/19/16 09:11; Admin Dose 200 MG; Start 07/11/16 at 21:00 Aspirin (Aspirin) 81 mg DAILY PO Last administered on 07/19/16 09:14; Admin Dose 81 MG; Start 07/12/16 at 09:00 Bisacodyl (Dulcolax) 5 mg DAILY PRN PO CONSTIPATION; Start 07/11/16 at 15:30 Diltiazem HCl (Cardizem Sr) 60 mg Q12 PO Last administered on 07/19/16 09:15; Admin Dose 60 MG; Start 07/11/16 at 21:00 Enoxaparin Sodium (Lovenox) 40 mg DAILY SC Last administered on 07/19/16 09:23 ; Admin Dose 40 MG; Start 07/12/16 at 09:00 Gabapentin (Neurontin) 300 mg TID GTB Last administered on 07/19/16 09:12; Admin Dose 300 MG; Start 07/11/16 at 21:00 Hydralazine HCl (Apresoline) 10 mg Q4 PRN PO ELEVATED BLOOD PRESSURE>150 Last administered on 07/15/16 13:04; Admin Dose 10 MG; Start 07/11/16 at 15:30 Lactulose (Enulose) 20 gm BID PRN PO CONSTIPATION; Start 07/11/16 at 15:30 Nystatin 1 applic DAILY TOP Last administered on 07/19/16 09:18; Admin Dose 1 APPLIC; Start 07/12/16 at 09:00 Olanzapine (Zyprexa) 5 mg DAILY GTB Last administered on 07/19/16 09:12; Admin Dose 5 MG; Start 07/12/16 at 09:00 Pantoprazole (Protonix Tab) 40 mg DAILY PO Last administered on 07/19/16 09:16 ; Admin Dose 40 MG; Start 07/12/16 at 09:00 Potassium Chloride (Klor-Con 20) 40 meq DAILY PO Last administered on 07/19/16 09:16; Admin Dose 40 MEQ; Start 07/12/16 at 09:00 Sertraline HCl (Zoloft) 100 mg DAILY GTB Last administered on 07/19/16 09:12; Admin Dose 100 MG; Start 07/12/16 at 09:00 Simethicone (Mylicon) 80 mg Q6H PRN PO DISTENSION/GAS/BLOATING; Start 07/11/16 at 15:30 Sucralfate (Carafate) 1 gm Q6 PO Last administered on 07/19/16 05:56; Admin Dose 1 GM; Start 07/11/16 at 18:00 Lorazepam (Ativan) 0.5 mg Q6H PRN IV ANXIETY; Start 07/11/16 at 15:30 Ondansetron HCl (Zofran Inj) 4 mg Q6H PRN IV NAUSEA AND/OR VOMITING; Start at 15:30 Nitroglycerin (Nitroglycerin (Sl Tab) 0.4 Mg) 1 tab Q5M PRN SL CHEST PAIN; Start 07/11/16 at 15:30 Acetaminophen (Tylenol Tab) 650 mg Q6H PRN PO PAIN LEVEL 1-3 OR FEVER; Start at 15:30 Acetaminophen (Tylenol Supp) 650 mg Q6H PRN [place] PAIN LEVEL 1-3 OR FEVER; Start 07/11/16 at 15:30 IV Flush (NS 10 ml) 10 ml PRN PRN IV IV PROTOCOL; Start 07/11/16 at 19:30 Docusate Sodium (Colace) 100 mg BID PO Last administered on 07/19/16 09:15; Admin Dose 100 MG; Start 07/14/16 at 14:00 Sodium Biphosphate/ Sodium Phosphate 133 ml 133 ml Q48H PRN [place] CONSTIPATION Last administered on 07/17/16 03:08; Admin Dose 133 ML; Start 07/14/16 at 14:00 Ertapenem/Sodium Chloride (Invanz/NS) 100 ml @ 200 mls/hr Q24H IVPB Last administered on 07/18/16 16:40; Admin Dose 200 MLS/HR; Start 07/14/16 at 16:00 Phenol (Cepastat Lozenge) 1 lozenge Q2H PRN [place] SORE THROAT Last administered on 07/19/16 09:19; Admin Dose 1 LOZENGE; Start 07/18/16 at 11:00 Furosemide (Lasix) 40 mg DAILY PO Last administered on 07/19/16 09:25; Admin Dose 40 MG; Start 07/19/16 at 09:18 RENAE SKY MD Jul 19, 2016 14:27
--- NOTE | 2016-07-19 15:13 | PN ---
Date/Time of Note Date/Time of Note DATE: 07/19/16 TIME: 15:07 Assessment/Plan VTE Prophylaxis VTE Prophylaxis Intervention: LMWH Lines/Catheters IV [facility] Urinary Cath still in place: No Assessment/Plan Chief Complaint/Hosp Course ASSESSMENT AND PLAN: 1. Acute on chronic respiratory failure. Likely secondary to pulmonary edema versus pneumonia room inspector has been consulted, continue breathing treatment, antibiotics, continue vent management 2. Morbid obesity with body mass index of 108. Place the patient on low calorie diet 3. Essential hypertension. Continue medical management 4. History of arrhythmia, on amiodarone, Lovenox and Cardizem. 5. Major depression. Continue Zyprexa and Zoloft. 6. History of gastrointestinal bleed. Continue PPI and sucralfate. 7. Left pleural effusion. Continue broad spectrum IV antibiotics. 8. Pulmonary edema on Lasix. 9. UTI with ESBL. continue Zosyn, follow-up urine culture and sensitivity Deep venous thrombosis prophylaxis, on Lovenox. We will continue to monitor patient closely. Further recommendations, management and treatment as per clinical course. Plan to discharge back to [facility] facility if urinalysis negative for ESBL Problems: Subjective 24 Hr Interval Summary Free Text/Dictation Patient denies of any chest pain, no significant changes in his breathing status Waiting for urine culture and sensitivity Tolerating oral intake Exam/Review of Systems Vital Signs Vitals Vital Signs Date Time Temp Pulse Resp B/P Pulse Ox O2 Delivery O2 Flow Rate FiO2 07/19/16 13:20 65 30 94 45 07/19/16 07:33 98.0 158/69 Intake and Output 07/18/16 07/18/16 07/19/16 15:00 23:00 07:00 Intake Total 1240 ml Balance 1240 ml Exam General: The patient is morbidly obese, Not in acute distress. HEENT: Atraumatic, normocephalic. The pupils are equal and round . Neck: Supple with full range of motion. Chest: Normal expansion of the thorax during inspiration Lungs: Breath sounds distant secondary to body habitus, clear to auscultation bilaterally Heart: Normal S1-S2, Regular rhythm and rate. Abdomen: Abdominal contour and morbidly obese, soft , nontender, nondistended , bowel sounds are present. Extremities: Normal to inspection, no edema no cyanosis Neurologic: Normal mental status,The patient is awake, alert and oriented . Results Result Diagram: 07/19/16 1016 07/19/16 1016 Results 24 hrs Laboratory Tests Test 07/19/16 10:16 White Blood Count 5.5 Red Blood Count 3.21 L Hemoglobin 8.7 L Hematocrit 30.0 L Mean Corpuscular Volume 93.5 Mean Corpuscular Hemoglobin 27.1 L Mean Corpuscular Hemoglobin Concent 29.0 L Red Cell Distribution Width 18.1 H Platelet Count 175 Mean Platelet Volume 12.6 H Neutrophils % 73.2 Lymphocytes % 10.3 L Monocytes % 7.5 Eosinophils % 8.1 H Basophils % 0.5 Nucleated Red Blood Cells % 0.0 Neutrophils # 4.0 Lymphocytes # 0.6 L Monocytes # 0.4 Eosinophils # 0.4 Basophils # 0.0 Nucleated Red Blood Cells # 0.0 Sodium Level 136 Potassium Level 4.4 Chloride Level 97 Carbon Dioxide Level 34 H Anion Gap 9 Blood Urea Nitrogen 24 H Creatinine 1.03 Glucose Level 137 Calcium Level 8.2 L Magnesium Level 2.2 Medications Medications Current Medications Amiodarone HCl (Cordarone) 200 mg BID GTB Last administered on 07/19/16 09:11; Admin Dose 200 MG; Start 07/11/16 at 21:00 Aspirin (Aspirin) 81 mg DAILY PO Last administered on 07/19/16 09:14; Admin Dose 81 MG; Start 07/12/16 at 09:00 Bisacodyl (Dulcolax) 5 mg DAILY PRN PO CONSTIPATION; Start 07/11/16 at 15:30 Diltiazem HCl (Cardizem Sr) 60 mg Q12 PO Last administered on 07/19/16 09:15; Admin Dose 60 MG; Start 07/11/16 at 21:00 Enoxaparin Sodium (Lovenox) 40 mg DAILY SC Last administered on 07/19/16 09:23 ; Admin Dose 40 MG; Start 07/12/16 at 09:00 Gabapentin (Neurontin) 300 mg TID GTB Last administered on 07/19/16 13:00; Admin Dose 300 MG; Start 07/11/16 at 21:00 Hydralazine HCl (Apresoline) 10 mg Q4 PRN PO ELEVATED BLOOD PRESSURE>150 Last administered on 07/15/16 13:04; Admin Dose 10 MG; Start 07/11/16 at 15:30 Lactulose (Enulose) 20 gm BID PRN PO CONSTIPATION; Start 07/11/16 at 15:30 Nystatin 1 applic DAILY TOP Last administered on 07/19/16 09:18; Admin Dose 1 APPLIC; Start 07/12/16 at 09:00 Olanzapine (Zyprexa) 5 mg DAILY GTB Last administered on 07/19/16 09:12; Admin Dose 5 MG; Start 07/12/16 at 09:00 Pantoprazole (Protonix Tab) 40 mg DAILY PO Last administered on 07/19/16 09:16 ; Admin Dose 40 MG; Start 07/12/16 at 09:00 Potassium Chloride (Klor-Con 20) 40 meq DAILY PO Last administered on 07/19/16 09:16; Admin Dose 40 MEQ; Start 07/12/16 at 09:00 Sertraline HCl (Zoloft) 100 mg DAILY GTB Last administered on 07/19/16 09:12; Admin Dose 100 MG; Start 07/12/16 at 09:00 Simethicone (Mylicon) 80 mg Q6H PRN PO DISTENSION/GAS/BLOATING; Start 07/11/16 at 15:30 Sucralfate (Carafate) 1 gm Q6 PO Last administered on 07/19/16 12:00; Admin Dose 1 GM; Start 07/11/16 at 18:00 Lorazepam (Ativan) 0.5 mg Q6H PRN IV ANXIETY; Start 07/11/16 at 15:30 Ondansetron HCl (Zofran Inj) 4 mg Q6H PRN IV NAUSEA AND/OR VOMITING; Start at 15:30 Nitroglycerin (Nitroglycerin (Sl Tab) 0.4 Mg) 1 tab Q5M PRN SL CHEST PAIN; Start 07/11/16 at 15:30 Acetaminophen (Tylenol Tab) 650 mg Q6H PRN PO PAIN LEVEL 1-3 OR FEVER; Start at 15:30 Acetaminophen (Tylenol Supp) [address] PAIN LEVEL 1-3 OR FEVER; Start 07/11/16 at 15:30 IV Flush (NS 10 ml) 10 ml PRN PRN IV IV PROTOCOL; Start 07/11/16 at 19:30 Docusate Sodium (Colace) 100 mg BID PO Last administered on 07/19/16 09:15; Admin Dose 100 MG; Start 07/14/16 at 14:00 Sodium Biphosphate/ Sodium Phosphate 133 ml [address] CONSTIPATION Last administered on 07/17/16 03:08; Admin Dose 133 ML; Start 07/14/16 at 14:00 Ertapenem/Sodium Chloride (Invanz/NS) 100 ml @ 200 mls/hr Q24H IVPB Last administered on 07/18/16 16:40; Admin Dose 200 MLS/HR; Start 07/14/16 at 16:00 Phenol (Cepastat Lozenge) 1 lozenge Q2H PRN MT SORE THROAT Last administered on 07/19/16 09:19; Admin Dose 1 LOZENGE; Start 07/18/16 at 11:00 Furosemide (Lasix) 40 mg DAILY PO Last administered on 07/19/16 09:25; Admin Dose 40 MG; Start 07/19/16 at 09:18 DORYS TINOCO MD Jul 19, 2016 15:13
[2016-07-19] MEDS: ERTAPENEM SODIUM 1 GM in SOD CHLORIDE 0.9% 100 ML IVPB SCH (16:00)
[2016-07-19] MEDS: NA PHOSPHATE/BIPHOS 133 ML ENEMA PR PRN (18:02)
--- NOTE | 2016-07-19 21:45 | DS ---
DATE OF ADMISSION: 07/12/2016 DATE OF DISCHARGE: 07/19/2016 ADDENDUM CONSULTANTS: 1. Cardiology. 2. Pulmonology. 3. Infectious disease. DIAGNOSES: 1. Ventolin dependent respiratory failure. 2. Extended spectrum beta lactamase urinary tract infection, on Invanz. 3. Morbid obesity. 4. Acute on chronic hypercapnic respiratory failure and hypoxia respiratory failure. 5. Left pleural effusion. 6. Anemia of chronic disease, status post transfusion. 7. Paroxysmal atrial fibrillation; currently in sinus rhythm. 8. Chronic left bundle branch block. 9. Essential hypertension. 10. Obstructive sleep apnea. 11. Status post tracheostomy. MEDICATIONS: 1. Tylenol. 2. Albuterol. 3. 4. Aspirin. 5. Dulcolax. 6. Diltiazem. 7. Colace. 8. Lovenox. 9. Lasix. 10. Gabapentin. 11. Hydroxyzine. 12. Lactulose. 13. Nitroglycerin. 14. Nystatin. 15. Zyprexa. 16. Protonix. 17. Invanz. 18. Potassium chloride. 19. Sertraline. 20. Simethicone. 21. Sucralfate. 22. Tramadol. 23. Ferrous sulfate. 24. Vitamin C. ALLERGIES: DILAUDID. Please see my discharge summary which was done on 07/14/2016. HOSPITAL COURSE: This is a 66-year-old gentleman with past medical history of respiratory distress status post tracheostomy, COPD, arrhythmia, coronary artery disease, congestive heart failure, neuro shanti, mood disorder, GERD, depression, GI bleed, morbid obesity, history of respiratory failure, st atus post tracheostomy, BMI 108, who [facility] at [facility] facility and is dependent for others for daily activity secondary to body habitus and he is bed bound. The patient presented to [facility] ER secondary to having hypoxemia and low oxygen saturation despite being on a vent. Hi s chest x-ray upon admission, there was moderate cardiac enlargement, congestive heart failure, pulm onary edema, left pleural effusion. He was evaluated by pulmonology and cardiology, was placed on _ ____, Cardizem, Eliquis secondary to atrial fibrillation with RVR and also was placed on IV Lasix fo r diuresis. His urine culture was found to have E. coli with ESBL, multidrug resistant, sensitive t o Zosyn and imipenem. Infectious disease doctor was consulted. Patient was continued on broad spec trum IV antibiotics/imipenem and Zosyn. He was planned [facility], although secondary to having positive E. coli and patient sharing a room with anot her resident, he was not accepted back at that facility. He was continued on Zosyn and imipenem dur ing this course of hospitalization. Today, he has been afebrile. His urine culture is still pendin g. His urinalysis showed positive leukocyte esterase, although negative nitrite, negative RBCs, 2 t o 5 WBCs, has been accepted back to jail [facility] for continuation of Invanz. Prescripti on was provided. CONDITION AT TIME OF DISCHARGE: Stable. LABORATORY: WBC 5.5, hemoglobin 8.7, hematocrit 30, platelets 175. Sodium 136, potassium 4.4, chlo ride 97, bicarbonate 34, BUN 24, creatinine 1.03, glucose 137, calcium 8.2, magnesium 2.0. CONDITION AT TIME OF DISCHARGE: Stable. Dictated By: DORYS TINOCO MD PN/NTS Conf#: [id number] DID#: [id number]
== END 2016-07-19 20:50 | DRG 207 ==
LOC: E/R 11:35 → TEL 14:14 → UNDOADMIN 07-12 14:14 → TEL 07-12 14:14 → UNDODISIN 07-19 20:50
PROVIDERS: ADMIT Family Medicine; ATTEND Family Medicine
PROC: 5A1955Z Respiratory Ventilation, Greater than 96 Consecutive Hours (ICD-10-PCS; principal; 2016-07-11)
PROC: 02HV33Z Insertion of Infusion Device into Superior Vena Cava, Percutaneous Approach (ICD-10-PCS; 2016-07-11)
PROC: B548ZZA Ultrasonography of Superior Vena Cava, Guidance (ICD-10-PCS; 2016-07-11)
PROC: 30233N1 Transfusion of Nonautologous Red Blood Cells into Peripheral Vein, Percutaneous Approach (ICD-10-PCS; 2016-07-12)
DX: J96.22 Acute and chronic respiratory failure with hypercapnia (principal); I50.33 Acute on chronic diastolic (congestive) heart failure; I42.9 Cardiomyopathy, unspecified; N39.0 Urinary tract infection, site not specified; Z68.45 Body mass index [BMI] 70 or greater, adult; E66.2 Morbid (severe) obesity with alveolar hypoventilation; I48.0 Paroxysmal atrial fibrillation; Z99.11 Dependence on respirator [ventilator] status; I11.0 Hypertensive heart disease with heart failure; J96.21 Acute and chronic respiratory failure with hypoxia; Z93.0 Tracheostomy status; Z95.0 Presence of cardiac pacemaker; I44.7 Left bundle-branch block, unspecified; J44.9 Chronic obstructive pulmonary disease, unspecified; I25.10 Atherosclerotic heart disease of native coronary artery without angina pectoris; Z87.19 Personal history of other diseases of the digestive system; K21.9 Gastro-esophageal reflux disease without esophagitis; Z74.01 Bed confinement status; B96.20 Unspecified Escherichia coli [E. coli] as the cause of diseases classified elsewhere; G47.33 Obstructive sleep apnea (adult) (pediatric); D63.8 Anemia in other chronic diseases classified elsewhere; Z16.24 Resistance to multiple antibiotics
CPT/HCPCS: 36415; 36430; 36569; 36600; 71010; 76937; 80048; 80053; 81001; 81003; 82550; 82553; 82803; 83605; 83690; 83735; 83880; 84484; 85025; 85610; 85730; 86644; 86850; 86900; 86901; 86920; 87040; 87086; 92526; 92610; 93005; 94002; 94003; 94640; 94664; 96365; 96366; 96372; 96375; J1940; J1335; J1650; J2543; J2997; P9016